=== PATIENT | female | born 1940 | race American Indian/Alaskan Native ===

== ENCOUNTER 2020-11-14 07:22 | Inpatient (IN) | payer MEDICARE ==
[2020-11-14] MEDS ORDERED: SODIUM CHLORIDE 0.9% 500 ML 500 ML IV ONE (08:00)
--- NOTE | 2020-11-14 08:04 | Emergency Department Report ---
ED General Adult HPI - General Chief complaint: Medical Clearance Stated complaint: LOSS OF APPETITE,MALAISE Time Seen by Provider: 11/14/20 07:34 Source: EMS Mode of arrival: Stretcher Limitations: No Limitations - History of Present Illness Initial comments: This is an 80-year-old female who is brought by her family for evaluation of generalized weakness. I have no report of recent fever. She was transported via EMS and found to have a blood sugar in the 70s. The patient does state that she is diabetic but is not on insulin. I am uncertain as to the validity of her medical history. She is however aware that she is in the hospital and does know her name. She says that she feels weak and essentially complains of generalized malaise. He is not reporting any focus of pain or specific symptoms. Patient was placed on a classroom monitor. She does appear to be in atrial fibrillation. Her pulse oximetry is running in the high 80s to low 90s. A blood gas on room air is now pending. -: days(s) Consistency: constant Improves with: none Worsens with: none Associated Symptoms: denies other symptoms Treatments Prior to Arrival: none - Related Data Allergies Allergy/AdvReac Type Severity Reaction Status Date / Time Penicillins Allergy Unknown Verified 11/14/20 07:33 ED Review of Systems ROS: Stated complaint: LOSS OF APPETITE,MALAISE Other details as noted in HPI Constitutional: weakness. denies: chills, fever Eyes: denies: eye pain, vision change ENT: denies: ear pain, throat pain Respiratory: denies: cough, shortness of breath Cardiovascular: denies: chest pain, palpitations Endocrine: no symptoms reported Gastrointestinal: denies: abdominal pain, nausea, diarrhea Genitourinary: denies: urgency, dysuria Musculoskeletal: denies: back pain, joint swelling, arthralgia Skin: denies: rash, lesions Neurological: denies: headache, weakness, paresthesias Psychiatric: denies: anxiety, depression Hematological/Lymphatic: denies: easy bleeding, easy bruising ED Past Medical Hx - Past Medical History Hx Hypertension: Yes Hx Diabetes: Yes (Patient states) - Social History Smoking Status: Never Smoker Other Social History: Lives with family ED Physical Exam - General Limitations: Physical Limitation General appearance: alert, in no apparent distress, cachectic (Perhaps borderline) - Head Head exam: Present: atraumatic, normocephalic - Eye Eye exam: Present: normal appearance. Absent: scleral icterus - ENT ENT exam: Present: mucous membranes moist - Neck Neck exam: Present: normal inspection - Respiratory Respiratory exam: Present: normal lung sounds bilaterally. Absent: respiratory distress - Cardiovascular Cardiovascular Exam: Present: regular rate, normal rhythm. Absent: systolic murmur, diastolic murmur, rubs, gallop - GI/Abdominal GI/Abdominal exam: Present: soft, normal bowel sounds. Absent: distended, tenderness, guarding, rebound - Extremities Exam Extremities exam: Present: normal inspection - Back Exam Back exam: Present: normal inspection - Neurological Exam Neurological exam: Present: alert, oriented X3, CN II-XII intact. Absent: motor sensory deficit - Psychiatric Psychiatric exam: Present: normal affect, normal mood - Skin Skin exam: Present: warm, dry, intact, normal color. Absent: rash ED Course Vital Signs 11/14/20 11/14/20 11/14/20 07:31 07:33 07:35 Temperature 98.4 F Pulse Rate 95 H Respiratory 15 21 Rate Blood Pressure 137/92 O2 Sat by Pulse 90 96 Oximetry - Reevaluation(s) Reevaluation #1: Spoke with patient's family. Apparently she has "thyroid problems". She has been previously treated with medication not otherwise specified. She has had some prior work-up at [facility] probably 2 years ago. She is not compliant with what ever medication she has been previously prescribed. 11/14/20 10:19 Reevaluation #2: Discussed with hospitalist (Dr. Fisher). Patient will be admitted for further care work-up. We will order a CT of her abdomen pelvis for further screening as well as thyroid and parathyroid levels. 11/14/20 10:20 ED Medical Decision Making - Lab Data Result diagrams: 11/14/20 08:18 11/14/20 08:18 Laboratory Results - last 24 hr 11/14/20 11/14/20 11/14/20 08:18 08:18 08:18 WBC 7.0 RBC 4.78 Hgb 13.8 Hct 42.9 MCV 90 MCH 29 MCHC 32 RDW 14.9 Plt Count 262 Lymph % (Auto) 21.0 [place] % (Auto) 13.7 H Eos % (Auto) 0.0 Baso % (Auto) 0.4 Lymph # (Auto) 1.5 [place] # (Auto) 1.0 H Eos # (Auto) 0.0 Baso # (Auto) 0.0 Seg Neutrophils % 64.9 Seg Neutrophils # 4.5 PT INR APTT ABG pH POC ABG pCO2 POC ABG pO2 POC ABG HCO3 ABG O2 Saturation POC ABG Base Excess ABG Hemoglobin ABG Oxyhemoglobin ABG Methemoglobin ABG Sodium ABG Potassium ABG Chloride ABG Glucose Carboxyhemoglobin FiO2 % Sodium 133 L Potassium 4.4 Chloride 98.0 Carbon Dioxide 26 Anion Gap 13 BUN 16 Creatinine 1.1 Estimated GFR 58 BUN/Creatinine Ratio 15 Glucose 100 Lactic Acid 1.60 Calcium 12.4 H* Magnesium 2.00 Total Bilirubin 0.50 Direct Bilirubin 0.2 Indirect Bilirubin 0.3 AST 42 H ALT 23 Alkaline Phosphatase 105 Ammonia Total Creatine Kinase 26 L CK-MB (CK-2) < 1.0 CK-MB (CK-2) Rel Index 3.8 Troponin T 0.051 H NT-Pro-B Natriuret Pep 55.86 Total Protein 9.4 H Albumin 3.1 L Albumin/Globulin Ratio 0.5 Triglycerides 129 Cholesterol 152 LDL Cholesterol Direct 94 HDL Cholesterol 25 L Cholesterol/HDL Ratio 6.08 TSH Free T4 Arterial Blood Glucose Arterial Blood Ionized Calcium 11/14/20 11/14/20 11/14/20 08:18 08:18 08:18 WBC RBC Hgb Hct MCV MCH MCHC RDW Plt Count Lymph % (Auto) [place] % (Auto) Eos % (Auto) Baso % (Auto) Lymph # (Auto) [place] # (Auto) Eos # (Auto) Baso # (Auto) Seg Neutrophils % Seg Neutrophils # PT 15.4 H INR 1.22 H APTT 24.8 ABG pH POC ABG pCO2 POC ABG pO2 POC ABG HCO3 ABG O2 Saturation POC ABG Base Excess ABG Hemoglobin ABG Oxyhemoglobin ABG Methemoglobin ABG Sodium ABG Potassium ABG Chloride ABG Glucose Carboxyhemoglobin FiO2 % Sodium Potassium Chloride Carbon Dioxide Anion Gap BUN Creatinine Estimated GFR BUN/Creatinine Ratio Glucose Lactic Acid Calcium Magnesium Total Bilirubin Direct Bilirubin Indirect Bilirubin AST ALT Alkaline Phosphatase Ammonia 16.0 L Total Creatine Kinase CK-MB (CK-2) CK-MB (CK-2) Rel Index Troponin T NT-Pro-B Natriuret Pep Total Protein Albumin Albumin/Globulin Ratio Triglycerides Cholesterol LDL Cholesterol Direct HDL Cholesterol Cholesterol/HDL Ratio TSH 1.150 Free T4 1.20 Arterial Blood Glucose Arterial Blood Ionized Calcium 11/14/20 08:42 WBC RBC Hgb Hct MCV MCH MCHC RDW Plt Count Lymph % (Auto) [place] % (Auto) Eos % (Auto) Baso % (Auto) Lymph # (Auto) [place] # (Auto) Eos # (Auto) Baso # (Auto) Seg Neutrophils % Seg Neutrophils # PT INR APTT ABG pH 7.440 POC ABG pCO2 41.6 POC ABG pO2 68.1 L POC ABG HCO3 27.6 ABG O2 Saturation 93.9 POC ABG Base Excess 3.2 ABG Hemoglobin 13.4 ABG Oxyhemoglobin 93.1 L ABG Methemoglobin 0 ABG Sodium 138.4 ABG Potassium 4.1 ABG Chloride 104.0 ABG Glucose 112 H Carboxyhemoglobin 0.9 FiO2 % 21.0 Sodium Potassium Chloride Carbon Dioxide Anion Gap BUN Creatinine Estimated GFR BUN/Creatinine Ratio Glucose Lactic Acid Calcium Magnesium Total Bilirubin Direct Bilirubin Indirect Bilirubin AST ALT Alkaline Phosphatase Ammonia Total Creatine Kinase CK-MB (CK-2) CK-MB (CK-2) Rel Index Troponin T NT-Pro-B Natriuret Pep Total Protein Albumin Albumin/Globulin Ratio Triglycerides Cholesterol LDL Cholesterol Direct HDL Cholesterol Cholesterol/HDL Ratio TSH Free T4 Arterial Blood Glucose 112 H Arterial Blood Ionized Calcium 6.5 H Critical care attestation.: If time is entered above; I have spent that time in minutes in the direct care of this critically ill patient, excluding procedure time. ED Disposition Clinical Impression: Hypercalcemia, Generalized weakness Disposition: OP ADMIT IP TO THIS HOSP Is pt being admited?: No Does the pt Need Aspirin: No Condition: Stable Time of Disposition: 10:21
[2020-11-14 08:46] LABS: Basophils % (Auto) 0.4 % (0.0-1.8); Hematocrit 42.9 % (30.3-42.9); Hemoglobin 13.8 gm/dl (10.1-14.3); Lymphocytes # (Auto) 1.5 K/mm3 (1.2-5.4); Mean Corpuscular HGB Conc 32 % (30-34); Mean Corpuscular Volume 90 fl (79-97); Monocytes % (Auto) 13.7 % (0.0-7.3); Platelet Count 262 K/mm3 (140-440); Red Blood Count 4.78 M/mm3 (3.65-5.03); Red Cell Distribution Width 14.9 % (13.2-15.2)
[2020-11-14 08:56] LABS: INR 1.22 (0.87-1.13); Partial Thromboplastin Time 24.8 Sec. (24.2-36.6)
--- NOTE | 2020-11-14 09:10 | XRay Report ---
CHEST 1 VIEW INDICATION: hypertension COMPARISON: None FINDINGS: Support devices: None Heart: Normal Lungs/Pleura: Mild, chronic appearing interstitial disease. Bilateral apical pleural thickening. No a cute disease. IMPRESSION: 1. No acute disease. Signer Name: Ankit Melgar MD Signed: 11/14/2020 9:06 AM Workstation Name: [id number]
[2020-11-14 09:14] LABS: Alanine Aminotransferase 23 units/L (7-56); Albumin 3.1 g/dL (3.9-5); BUN/Creatinine Ratio 15; Bilirubin,Direct 0.2 mg/dL (0-0.2); Blood Urea Nitrogen 16 mg/dL (7-17); Hemolysis Index 51
[2020-11-14 09:18] LABS: Calcium 12.4 mg/dL (8.4-10.2); Creatine Kinase MB < 1.0 ng/mL (0.0-4.0)
[2020-11-14 09:19] LABS: Free T4 (Free Thyroxine) 1.2 ng/dL (0.76-1.46)
--- NOTE | 2020-11-14 09:23 | Cat Scan Report ---
CT HEAD WITHOUT CONTRAST INDICATION / CLINICAL INFORMATION: Altered Mental Status. TECHNIQUE: All CT scans at this location are performed using CT dose reduction for ALARA by means of automated e xposure control. COMPARISON: None available. FINDINGS: HEMORRHAGE: No evidence of intracranial hemorrhage or extra-axial fluid collection. EXTRA-AXIAL SPACES: Cortical sulci and sylvian fissures are enlarged reflecting a degree of parenchym al volume loss which is prominent even given the patient's age of 80 years. Basilar cisterns have an unremarkable appearance. VENTRICULAR SYSTEM: The third and lateral ventricles are enlarged out of proportion to the cortical s ulci. This probably reflects the presence of central greater than cortical atrophy. CEREBRAL PARENCHYMA: Extensive periventricular, subcortical and deep white matter lucency is observed . This is probably secondary to advanced microvascular ischemic change. There is no indication of rec ent infarction. No areas of encephalomalacia are identified. MIDLINE SHIFT OR HERNIATION: There is no mass effect. CEREBELLUM / BRAINSTEM: Brainstem and cerebellum have an unremarkable appearance. MIDLINE STRUCTURES:No abnormalities of the pituitary gland or pineal region are observed INTRACRANIAL VESSELS: No significant abnormalities identified on noncontrast head CT examination.. ORBITS: Status post bilateral cataract surgery. No additional abnormality. SOFT TISSUES of HEAD: No significant abnormality. CALVARIUM: Evaluation of bone windows reveals no abnormalities. PARANASAL SINUSES / MASTOID AIR CELLS: Paranasal sinuses are free from inflammatory mucosal disease. Mastoid air cells are normally pneumatized. IMPRESSION: 1. Prominent Central greater than cortical atrophy. 2. Advanced microvascular ischemic change. 3. No acute intracranial abnormality. Signer Name: Mickey Levine MD Signed: 11/14/2020 9:19 AM Workstation Name: [id number]
[2020-11-14 09:40] LABS: Chol/HDL Ratio 6.08 %; HDL Cholesterol 25 mg/dL (40-59); LDL Cholesterol,Direct 94 mg/dL (50-130)
[2020-11-14] MEDS ORDERED: SODIUM CHLORIDE 0.9% 1000 ML 1,000 ML IV ONE (10:22)
[2020-11-14] MEDS ORDERED: ASPIRIN 81 MG TAB CHEW PO ONE (10:24)
--- NOTE | 2020-11-14 13:06 | Cat Scan Report ---
CT ABDOMEN AND PELVIS WITH CONTRAST HISTORY: Hypercalcemia. COMPARISON: None. TECHNIQUE: CT images of the abdomen and pelvis were obtained following administration of intravenous contrast. All CT scans at this location are performed using CT dose reduction for ALARA by means of automated exposure control. CONTRAST: 100 ml of intravenous contrast administered. FINDINGS: Lungs/bones: Chronic interstitial change in the lung bases without focal consolidation Abdomen/pelvis: There is diffuse fatty infiltration liver. There is biliary gas suggested. Prior cho lecystectomy. Spleen appears normal. Nodularity and thickened bilateral adrenal glands. Proximal panc reatic duct is slightly prominent. There is enlargement of the right renal pelvis and calyces. Large areas of calcification the right kidney are identified with area of dense calcification and stones me asuring 1.8 x 0.7 cm. There is a large calcification in the right mid ureter measuring 1 cm. Uterus is enlarged. Multiple fibroids largest calcified fibroid in the left aspect of the uterus. There is extensive vascular change with mural thrombus throughout the aorta. Areas of narrowing are i dentified. Celiac and SMA appear normal. Renal arteries are patent. There is extensive thrombus on th e left aspect of the aorta inferiorly just above the bifurcation with some narrowing of the JESIKA proxi kat at the origin. Bowel loops appear normal. IMPRESSION: 1. Severe right hydroureteronephrosis with large stone within the proximal to mid ureter. The stone m easures 1.5 x 1.0 cm. There are also large area of calcification the inferior aspect of the right silvia yces of the right kidney as described above. 2. Extensive mural thrombus throughout the aorta from the lower aspect of the thorax and into the lev el of the bifurcation. Areas of narrowing throughout the aorta is seen. 3. There is biliary gas within common bile duct and into the intrahepatic ducts. Clinical correlation for recent procedure. Prior cholecystectomy. 4. Uterine fibroids. Signer Name: Raman Sebastian MD Signed: 11/14/2020 1:02 PM Workstation Name: [id number]
--- NOTE | 2020-11-14 13:20 | History and Physical Report ---
History of Present Illness Date of examination: 11/14/20 Date of admission: 11/14/20 11:52 Chief complaint: weakness History of present illness: This is an 80-year-old female who is brought by her family for evaluation of generalized weakness. She was transported via EMS and found to have a blood sugar in the 70s. The patient does state that she is diabetic but is not on insulin. She says that she feels weak and essentially complains of generalized malaise, otherwise she is a poor historian. In the ER patient was reported to be in atrial fibrillation. Her calcium level noted to be elevated, patient was called for admission for further evaluation and management. Past medical History: h/o diet control DM, suspect dementia Past surgical History: None available Social History: Lives with family, no reported history of smoking, drinking and elicit drug abuse. Family History: Unavailable and patient is very poor historian ROS: Patient is a poor historian Constitutional: no fever, no chills, no weight loss, generalized weakness+ Ears, eyes, nose, mouth and throat: no nasal congestion, no nasal discharge, no sinus pressure, no vision change, no red eye. Neck: No neck pain or rigidity. Cardiovascular: No chest pain, no orthopnea, no palpitations, no leg swelling Respiratory: No shortness of breath, no cough, no congestion, no wheezing Gastrointestinal: no abdominal pain, no nausea, no vomiting Genitourinary : no dysuria, no hematuria Musculoskeletal: no joint swelling or muscle ache Integumentary: no rash, no pruritis Neurological: no parathesias, no numbness, no tingling Endocrine: no cold or heat intolerance, no polyuria or polydipsia Hematologic/Lymphatic: no easy bruising, no easy bleeding, no gland swelling Allergic/Immunologic: no urticaria, no angioedema. Medications and Allergies Allergies Allergy/AdvReac Type Severity Reaction Status Date / Time Penicillins Allergy Unknown Verified 11/14/20 07:33 Active Meds: Active Medications Sodium Chloride (Nacl 0.9% 1000 Ml) 1,000 mls @ 125 mls/hr IV ONCE ONE Stop: 11/14/20 18:21 Last Admin: 11/14/20 11:13 Dose: 125 mls/hr Documented by: Exam - Physical Exam Narrative exam: GENERAL: elderly AAF lying on bed appeared to be in no discomfort but lethargic. HEENT: Normocephalic. Atraumatic. No conjunctival congestion or icterus. Patient has moist mucous membranes. NECK: Supple. Trachea midline. CHEST/LUNGS: Clear to auscultated bilaterally, breathing nonlabored. No wheezes crackles or rhonchi. HEART/CARDIOVASCULAR: Regular in rate and rhythm. S1 and S2 positive. ABDOMEN: Abdomen is soft, nontender. Patient has normal bowel sounds. SKIN: There is no rash. Warm and dry. NEURO: No focal motor deficit. Follows command. MUSCULOSKELETAL: No joint effusion or tenderness. EXTRIMITY: No edema, no cyanosis or clubbing. PSYCH: Cooperative. - Constitutional Vitals: Temp Pulse Resp BP Pulse Ox 98.4 F 82 20 136/88 98 11/14/20 11:57 11/14/20 11:57 11/14/20 11:57 11/14/20 11:57 11/14/20 11:57 HEART Score - HEART Score Troponin: Troponin T 0.051 ng/mL (0.00-0.029) H 11/14/20 08:18 Results - Labs CBC & Chem 7: 11/14/20 08:18 11/16/20 07:54 Labs: Abnormal lab results 11/14/20 11/14/20 11/14/20 Range/Units 08:18 08:18 08:18 Reynolds % (Auto) 13.7 H (0.0-7.3) % Reynolds # (Auto) 1.0 H (0.0-0.8) K/mm3 PT (12.2-14.9) Sec. INR (0.87-1.13) POC ABG pO2 (83-108) mmHg ABG Oxyhemoglobin (94-98) ABG Glucose (65-95) mg/dL Sodium 133 L (137-145) mmol/L Calcium 12.4 H* (8.4-10.2) mg/dL AST 42 H (5-40) units/L Ammonia 16.0 L (25-60) umol/L Total Creatine Kinase 26 L (30-135) units/L Troponin T 0.051 H (0.00-0.029) ng/mL Total Protein 9.4 H (6.3-8.2) g/dL Albumin 3.1 L (3.9-5) g/dL HDL Cholesterol 25 L (40-59) mg/dL PTH Intact (15-65) pg/mL Arterial Blood Glucose (65-95) mg/dL Arterial Blood Ionized Calcium (4.6-5.3) mg/dL 11/14/20 11/14/20 11/14/20 Range/Units 08:18 08:18 08:42 [place] % (Auto) (0.0-7.3) % Reynolds # (Auto) (0.0-0.8) K/mm3 PT 15.4 H (12.2-14.9) Sec. INR 1.22 H (0.87-1.13) POC ABG pO2 68.1 L (83-108) mmHg ABG Oxyhemoglobin 93.1 L (94-98) ABG Glucose 112 H (65-95) mg/dL Sodium (137-145) mmol/L Calcium (8.4-10.2) mg/dL AST (5-40) units/L Ammonia (25-60) umol/L Total Creatine Kinase (30-135) units/L Troponin T (0.00-0.029) ng/mL Total Protein (6.3-8.2) g/dL Albumin (3.9-5) g/dL HDL Cholesterol (40-59) mg/dL PTH Intact 112.6 H (15-65) pg/mL Arterial Blood Glucose 112 H (65-95) mg/dL Arterial Blood Ionized Calcium 6.5 H (4.6-5.3) mg/dL - Imaging and Cardiology CT scan - abdomen: pending Assessment and Plan Atrial fibrillation, rate controlled Dehydration hypercalcemia Diabetes mellitus type 2 Hyperparathyroidism Mild hyponatremia Moderate protein calorie malnutrition --We will admit with remote telemetry -Start on IV fluid hydration, Lasix IV twice daily -We will also give 1 dose of pamidronate, consult nephrology -follow BMP, order 2D echo, cardiology consult -Continue baby aspirin for now will defer to cardiology for long-term anticoagulation -Ordered for CT abdomen pelvis, will follow the report -DVT prophylaxis, PT OT evaluation, dietary consult
[2020-11-14] MEDS ORDERED: PAMIDRONATE DISODIUM 60 MG in SODIUM CHLORIDE 0.9% 1000 ML 1,000 ML IV ONE (15:51)
[2020-11-14] MEDS: FUROSEMIDE 20 MG/2 ML INJ IV SCH ×2 (16:55→21:25)
--- NOTE | 2020-11-14 21:47 | Consultation ---
History of Present Illness - Reason for Consult Consult date: 11/14/20 other (Hypercalcemia) - History of Present Illness Th patient is an 80 YO female with unknown medical history who was brought by her family for evaluation of generalized weakness. Patient is a very poor historian and denies any complaint. She was noted to have a blood sugar in the 70s. On further evaluation she was found to have A.fib and hypercalcemia. Patient was admitted for further evaluation. Nephrology was consulted for evaluation and treatment of Hypercalcemia. Medications and Allergies Allergies Allergy/AdvReac Type Severity Reaction Status Date / Time Penicillins Allergy Unknown Verified 11/14/20 07:33 Active Meds: Active Medications Furosemide (Furosemide 20 Mg/2 Ml Inj) 20 mg IV 0600,1800 GUME Last Admin: 11/14/20 21:25 Dose: 20 mg Documented by: Pamidronate Disodium 60 mg/ (Sodium Chloride) 1,006.6667 mls @ 100 mls/hr IV ONCE ONE Stop: 11/15/20 01:54 Last Admin: 11/14/20 16:49 Dose: 100 mls/hr Documented by: Review of Systems ROS unobtainable: due to mental status Exam - Vital Signs Vital signs: Vital Signs Resp 15 11/14/20 07:31 Results - Lab Results 11/14/20 08:18 11/15/20 08:42 Most recent lab results ABG pH 7.440 (7.320-7.450) 11/14/20 08:42 ABG O2 Saturation 93.9 (0-100) 11/14/20 08:42 Calcium 12.4 mg/dL (8.4-10.2) H* 11/14/20 08:18 Magnesium 2.00 mg/dL (1.7-2.3) 11/14/20 08:18 Assessment and Plan 1. Hypercalcemia: Likely 2/2 volume depletion/ Started on IV fluids. Elevated PTH level noted. Monitor levels. 2. FEN: IV fluids. Monitor lytes and volume status. 3. Atrial fibrillation: Rate controlled. Monitor. 4. DM type 2. 5. Moderate protein calorie malnutrition. 6. Encephalopathy: ?baseline. Subjective: Patient was seen and examined at the bedside. General Appearance: General appearance: well-developed, appears stated age, emaciated, not in distress EENT: ATNC, pupils equal Neck: neck supple, trachea midline Respiratory: ctab Heart: regular, S1S2, no murmur Abdomen: soft, normoactive bowel sounds, not tender Integumentary: no rash, warm and dry Neurologic: alert, conversing, confused, able to move extremities Ext: no edema
[2020-11-15] MEDS: FUROSEMIDE 20 MG/2 ML INJ IV SCH (06:39)
[2020-11-15] MEDS: SODIUM CHLORIDE 0.9% 1000 ML 1,000 ML IV SCH (09:01)
[2020-11-15 09:43] LABS: Calcium 11.5 mg/dL (8.4-10.2)
--- NOTE | 2020-11-15 11:53 | Progress Note ---
Assessment and Plan Atrial fibrillation ??, NSR now -EKG on admission was in normal sinus rhythm, --Continue baby aspirin for now will defer to cardiology for long-term anticoagulation -We will get 2D echocardiogram and cardiology recommendation Severe symptomatic Dehydration -Continue IV fluid hydration, follow BMP hypercalcemia -Calcium was 12.4 on admission, likely from primary hyperparathyroidism --cont on IV fluid hydration, status post Lasix iv, s/p 1 dose of pamidronate -Continue IV fluid, follow calcium level Diabetes mellitus type 2 -Consistent carb diet, SSI Primary Hyperparathyroidism, likely -Noted to have elevated PTH, elevated calcium level -Ordered for parathyroid scan, nephrology following we will follow result thyroid scan Hypophosphatemia, replete and monitor level Hyponatremia, resolved, continue IV fluid hydration Moderate protein calorie malnutrition, dietary consult Severe right hydroureteronephrosis with large stone within the proximal to mid ureter --Will consult urology for right hydrouteronephrosis, cont to follow BMP for now CT abdomen/pelvis: 1. Severe right hydroureteronephrosis with large stone within the proximal to mid ureter. The stone measures 1.5 x 1.0 cm. There are also large area of calcification the inferior aspect of the right calyces of the right kidney. Extensive mural thrombus throughout the aorta -Discussed with vascular surgeon about the mural thrombus of the aorta and according to vascular it might be a chronic finding and continue aspirin for now CT abdomen/pelvis: Extensive mural thrombus throughout the aorta from the lower aspect of the thorax and into the level of the bifurcation. Areas of narrowing throughout the aorta is seen. Remote tobacco abuse -Monitor clinically: Supportive care Acute metabolic encephalopathy, POA -Continue to follow clinically, cannot rule out underlying dementia CT head: 1. Prominent Central greater than cortical atrophy. 2. Advanced microvascular ischemic change. 3. No acute intracranial abnormality. Uterine fibroids. -H&H stable,-outpatient follow-up -DVT prophylaxis, PT OT evaluation, dietary consult Daily clinical course: 11/15: Continue to monitor BMP, calcium 11.5 today, phosphorus 2.0. Replete phosphorus level, patient remains normal sinus rhythm on telemetry. Continue aspirin for now. Will consult urology when service available. Continue to follow clinically with supportive care. Follow vascular recommendation for aortic mural thrombus. Subjective Date of service: 11/15/20 Interval history: Patient seen and examined. Medical records and medication list reviewed. No acute event overnight noted by the RN. Patient denies any chest pain or difficulty breathing. Patient is tolerating diet. Patient appears to be poor historian Discussed plan of care at bedside with patient's RN. Objective - Exam Narrative Exam: GENERAL: elderly AAF lying on bed appeared to be in no discomfort but lethargic. HEENT: Normocephalic. Atraumatic. No conjunctival congestion or icterus. Patient has moist mucous membranes. NECK: Supple. Trachea midline. CHEST/LUNGS: Clear to auscultated bilaterally, breathing nonlabored. No wheezes crackles or rhonchi. HEART/CARDIOVASCULAR: Regular in rate and rhythm. S1 and S2 positive. ABDOMEN: Abdomen is soft, nontender. Patient has normal bowel sounds. SKIN: There is no rash. Warm and dry. NEURO: No focal motor deficit. Follows command. MUSCULOSKELETAL: No joint effusion or tenderness. EXTRIMITY: No edema, no cyanosis or clubbing. PSYCH: Cooperative. - Constitutional Vitals: Vital Signs - 12hr 11/15/20 11/15/20 11/15/20 00:45 04:00 05:00 Temperature 98.6 F 99.3 F Pulse Rate 76 80 Pulse Rate [ 76 Right Brachial] Respiratory 17 17 16 Rate Blood Pressure 147/88 150/93 O2 Sat by Pulse 91 91 94 Oximetry - Labs CBC & Chem 7: 11/14/20 08:18 11/16/20 07:54 Labs: Abnormal lab results 11/14/20 11/15/20 Range/Units 21:29 08:42 POC Glucose 119 H (70-105) mg/dL Calcium 11.5 H (8.4-10.2) mg/dL Phosphorus 2.00 L (2.5-4.5) mg/dL HEART Score - HEART Score Troponin: Troponin T 0.051 ng/mL (0.00-0.029) H 11/14/20 08:18
[2020-11-15] MEDS ORDERED: PHOS-NAK POWDER PACKET PO ONE (13:00)
[2020-11-15] MEDS ORDERED: ACETAMINOPHEN 325 MG TAB PO PRN (17:17)
[2020-11-15] MEDS: ASPIRIN EC 81 MG TAB PO SCH (17:17)
--- NOTE | 2020-11-15 17:18 | Progress Note ---
Assessment and Plan 1. Hypercalcemia: Likely 2/2 volume depletion. Continue IV fluids. Calcium level is improving. Elevated PTH level noted. Suspected Primary hyperparathyroidism. NM parathyroid scan ordered. Monitor levels. 2. FEN: IV fluids. Monitor lytes and volume status. 3. Severe R hydroureteronephrosis: Large stone in the proximal R ureter. R kidney calcification. Most likely chronic. 4. Atrial fibrillation: Rate controlled. Monitor. 5. DM type 2. 6. Moderate protein calorie malnutrition. 7. Encephalopathy: ?baseline. Subjective: Patient was seen and examined at the bedside. General Appearance: General appearance: well-developed, appears stated age, emaciated, not in distress EENT: ATNC, pupils equal Neck: neck supple, trachea midline Respiratory: ctab Heart: S1S2, no murmur Abdomen: soft, normoactive bowel sounds, not tender Integumentary: no rash, warm and dry Neurologic: alert, conversing, confused, able to move extremities Ext: no edema Subjective Date of service: 11/15/20 Objective - Vital Signs Vital signs: Vital Signs - 12hr 11/15/20 12:56 Temperature 101.7 F H Pulse Rate 85 Respiratory 18 Rate Blood Pressure 151/93 O2 Sat by Pulse 97 Oximetry - Lab 11/14/20 08:18 11/15/20 08:42 Most recent lab results ABG pH 7.440 (7.320-7.450) 11/14/20 08:42 ABG O2 Saturation 93.9 (0-100) 11/14/20 08:42 Calcium 11.5 mg/dL (8.4-10.2) H 11/15/20 08:42 Phosphorus 2.00 mg/dL (2.5-4.5) L 11/15/20 08:42 Magnesium 2.00 mg/dL (1.7-2.3) 11/14/20 08:18 Medications & Allergies - Medications Allergies/Adverse Reactions: Allergies Penicillins Allergy (Verified 11/14/20 07:33) Unknown Active Medications: Generic Name Dose Route Start Last Admin Trade Name Freq PRN Reason Stop Dose Admin Aspirin 81 mg 11/15/20 12:00 11/15/20 17:17 Aspirin Ec 81 Mg Tab PO 81 mg QDAY GUME Administration Enoxaparin Sodium 40 mg 11/15/20 22:00 Enoxaparin 40 Mg/0.4 Ml Inj SUB-Q QDAY@2200 GUME Protocol Sodium Chloride 1,000 mls @ 75 mls/hr 11/14/20 22:00 11/15/20 09:01 Nacl 0.9% 1000 Ml IV 75 mls/hr DIRECT GUME Administration
--- NOTE | 2020-11-15 18:34 | Consultation ---
History of Present Illness Consult date: 11/15/20 History of present illness: 80F with unknown PMHx who was brought in by family for reported weakness with finding of blood glucose 70 and hypercalcemia. Cardiology consulted for possible AF. Patient currently resting comfortably in bed and without any complaints, including CP, SOB, or palpitations. She denies any prior history of AF, and no evidence for AF is found on review of EKGs/telemetry. Of note, she developed fever earlier today. CT abd/pelvis notable for kidney stone with hydroureteronephrosis and aortic mural thrombus from lower thorax into bifurcation. Medications and Allergies Allergies Allergy/AdvReac Type Severity Reaction Status Date / Time Penicillins Allergy Unknown Verified 11/14/20 07:33 Active Meds: Active Medications Acetaminophen (Acetaminophen 325 Mg Tab) 650 mg PO Q6H PRN PRN Reason: Pain, Mild (1-3) Aspirin (Aspirin Ec 81 Mg Tab) 81 mg PO QDAY GUME Last Admin: 11/15/20 17:17 Dose: 81 mg Documented by: Enoxaparin Sodium (Enoxaparin 40 Mg/0.4 Ml Inj) 40 mg SUB-Q QDAY@2200 GUME; Protocol Sodium Chloride (Nacl 0.9% 1000 Ml) 1,000 mls @ 75 mls/hr IV DIRECT GUME Last Admin: 11/15/20 09:01 Dose: 75 mls/hr Documented by: Review of Systems All systems: negative Physical Examination Vital Signs Resp 15 11/14/20 07:31 Narrative exam: Gen_NAD, frail CV-RRR, no murmur Lungs-CTAB Abd-soft/nt/nd Ext-no pedal edema Skin-soft, warm to touch Neuro-alert and oriented, awake Psych-affect normal Results 11/14/20 08:18 11/15/20 08:42 Comprehensive Metabolic Panel 11/15/20 Range/Units 08:42 Sodium 137 (137-145) mmol/L Potassium 4.4 (3.6-5.0) mmol/L Chloride 101.0 (98-107) mmol/L Carbon Dioxide 29 (22-30) mmol/L BUN 13 (7-17) mg/dL Creatinine 1.1 (0.6-1.2) mg/dL Glucose 100 (65-100) mg/dL Calcium 11.5 H (8.4-10.2) mg/dL Tele - SR EKG - Sinus rhythm, possible inferior Q waves Assessment and Plan #No evidence for AF #Possible inferior Q waves on EKG #Fever and kidney stone with hydroureteronephrosis #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 Continue telemetry monitoring. -Will check echo. -Recommend heparin anticoagulation if no plans for procedural intervention for kidney stone. She will also need serial imaging as out-patient and vascular surgery consultation.
[2020-11-15] MEDS ORDERED: ENOXAPARIN 40 MG/0.4 ML INJ SUB-Q SCH (22:00)
[2020-11-16] MEDS: SODIUM CHLORIDE 0.9% 1000 ML 1,000 ML IV SCH (06:35)
[2020-11-16 09:09] LABS: BUN/Creatinine Ratio 12; Blood Urea Nitrogen 12 mg/dL (7-17); Calcium 9.8 mg/dL (8.4-10.2); Hemolysis Index 3
--- NOTE | 2020-11-16 09:29 | Progress Note ---
Assessment and Plan 1. Hypercalcemia: Likely 2/2 volume depletion. Continue IV fluids. Calcium level has improved. Elevated PTH level noted. NM parathyroid scan negative. Monitor levels. 2. FEN: IV fluids. Replete K and Phos. Monitor lytes and volume status. 3. Severe R hydroureteronephrosis: Large stone in the proximal R ureter. R kidney calcification. Most likely chronic. Urology consulted. 4. Atrial fibrillation: Rate controlled. Monitor. 5. Aorta mural thrombus: Vascular consulted. 6. DM type 2. 7. Moderate protein calorie malnutrition. 8. Encephalopathy: ?baseline dementia. Subjective: Patient was seen and examined at the bedside. General Appearance: General appearance: well-developed, appears stated age, emaciated, not in distress EENT: ATNC, pupils equal Neck: neck supple, trachea midline Respiratory: ctab Heart: S1S2, no murmur Abdomen: soft, normoactive bowel sounds, not tender Integumentary: no rash, warm and dry Neurologic: alert, conversing, confused, able to move extremities Ext: no edema Subjective Date of service: 11/16/20 Objective - Vital Signs Vital signs: Vital Signs - 12hr 11/15/20 11/16/20 22:54 05:17 Temperature 99.1 F 100.9 F H Pulse Rate 78 83 Respiratory 18 20 Rate Blood Pressure 112/76 134/81 O2 Sat by Pulse 96 90 Oximetry - Lab 11/14/20 08:18 11/16/20 07:54 Most recent lab results ABG pH 7.440 (7.320-7.450) 11/14/20 08:42 ABG O2 Saturation 93.9 (0-100) 11/14/20 08:42 Calcium 9.8 mg/dL (8.4-10.2) 11/16/20 07:54 Phosphorus 1.80 mg/dL (2.5-4.5) L 11/16/20 07:54 Magnesium 2.00 mg/dL (1.7-2.3) 11/14/20 08:18 Medications & Allergies - Medications Allergies/Adverse Reactions: Allergies Penicillins Allergy (Verified 11/14/20 07:33) Unknown Active Medications: Generic Name Dose Route Start Last Admin Trade Name Freq PRN Reason Stop Dose Admin Acetaminophen 650 mg 11/15/20 17:17 Acetaminophen 325 Mg Tab PO Q6H PRN Pain, Mild (1-3) Aspirin 81 mg 11/15/20 12:00 11/15/20 17:17 Aspirin Ec 81 Mg Tab PO 81 mg QDAY GUME Administration Enoxaparin Sodium 40 mg 11/15/20 22:00 11/15/20 21:58 Enoxaparin 40 Mg/0.4 Ml Inj SUB-Q 40 mg QDAY@2200 GUME Administration Protocol Sodium Chloride 1,000 mls @ 75 mls/hr 11/14/20 22:00 11/16/20 06:35 Nacl 0.9% 1000 Ml IV 75 mls/hr DIRECT GUME Administration
[2020-11-16] MEDS: ASPIRIN EC 81 MG TAB PO SCH (09:38)
[2020-11-16] MEDS ORDERED: POTASSIUM CHLORIDE ER 20 MEQ TAB PO ONE (10:00)
[2020-11-16] MEDS ORDERED: POTASSIUM PHOSPHATE 30 MMOL in SODIUM CHLORIDE 0.9% 500 ML 500 ML IV ONE (12:00)
--- NOTE | 2020-11-16 13:08 | Event Note ---
Date: 11/16/20 No new cardiac complaints, cardiology consultation was for evaluation of atrial fibrillation, but as noted in the previous cardiology note there was no evidence of atrial fibrillation on review of the telemetry strips and serial EKGs. An echocardiogram that was previously ordered was reviewed today shows normal left ventricular systolic function, no significant valvular pathology. We do however note that on the CT scan of the abdomen, there was incidental finding of extensive mural thrombus in the abdominal aorta. We have recommended that you consult with vascular surgery for evaluation of these findings. This recommendation was also previously made on our initial cardiology consultation by Dr. Leon. No further cardiac interventions are indicated. We will follow on a as needed basis.
--- NOTE | 2020-11-16 13:50 | Nuclear Medicine Report ---
Nuclear medicine parathyroid scan INDICATION: Primary hyperparathyroidism TECHNIQUE: A total of 20 mCi of technetium 99 sestamibi injected IV per protocol. Multiple planar danielle ges obtained FINDINGS: Expected cardiac and salivary gland uptake identified. Markers noted at the cricoid in the suprasternal notch. No additional uptake identified to definitely suggest abnormality IMPRESSION: No abnormal uptake identified to suggest parathyroid adenoma. Signer Name: Lon Chapa MD Signed: 11/16/2020 1:46 PM Workstation Name: [id number]
[2020-11-16] MEDS ORDERED: HEPARIN 10,000 UNITS/10 ML VIAL IV PRN (15:29)
--- NOTE | 2020-11-16 17:02 | Progress Note ---
Assessment and Plan Atrial fibrillation ??, NSR now -EKG on admission was in normal sinus rhythm, --Continue baby aspirin for now will defer to cardiology for long-term anticoagulation -We will get 2D echocardiogram and cardiology recommendation Severe symptomatic Dehydration -Continue IV fluid hydration, follow BMP hypercalcemia -Calcium was 12.4 on admission, likely from primary hyperparathyroidism --cont on IV fluid hydration, status post Lasix iv, s/p 1 dose of pamidronate -Continue IV fluid, follow calcium level Diabetes mellitus type 2 -Consistent carb diet, SSI Primary Hyperparathyroidism, likely -Noted to have elevated PTH, elevated calcium level -Ordered for parathyroid scan, nephrology following we will follow result thyroid scan Hypophosphatemia, replete and monitor level Hypokalemia, replete and monitor level Hyponatremia, resolved, continue IV fluid hydration Moderate protein calorie malnutrition, dietary consult Severe right hydroureteronephrosis with large stone within the proximal to mid ureter --Will consult urology for right hydrouteronephrosis, cont to follow BMP for now CT abdomen/pelvis: 1. Severe right hydroureteronephrosis with large stone within the proximal to mid ureter. The stone measures 1.5 x 1.0 cm. There are also large area of calcification the inferior aspect of the right calyces of the right kidney. Extensive mural thrombus throughout the aorta -Discussed with vascular surgeon about the mural thrombus of the aorta and according to vascular it might be a chronic finding and continue aspirin for now CT abdomen/pelvis: Extensive mural thrombus throughout the aorta from the lower aspect of the thorax and into the level of the bifurcation. Areas of narrowing t hroughout the aorta is seen. Remote tobacco abuse -Monitor clinically: Supportive care Acute metabolic encephalopathy, POA -Continue to follow clinically, cannot rule out underlying dementia CT head: 1. Prominent Central greater than cortical atrophy. 2. Advanced microvascular ischemic change. 3. No acute intracranial abnormality. Uterine fibroids. -H&H stable,-outpatient follow-up -DVT prophylaxis, PT OT evaluation, dietary consult Daily clinical course: 11/15: Continue to monitor BMP, calcium 11.5 today, phosphorus 2.0. Replete phosphorus level, patient remains normal sinus rhythm on telemetry. Continue aspirin for now. Will consult urology when service available. Continue to follow clinically with supportive care. Follow vascular recommendation for aortic mural thrombus. 11/16: Ca level normal today, noted parathyroid scan results. Discussed with urologist and recommended to keep patient n.p.o. for possible cystoscopy/pyelogram with stent placement tomorrow. Continue to replete p hosphate and potassium. Discussed management and plan of care with patient and patient's son at the bedside. Subjective Date of service: 11/16/20 Interval history: Patient seen and examined. Medical records and medication list reviewed. No acute event overnight noted by the RN. Patient denies any chest pain or difficulty breathing. Patient is tolerating diet. Patient appears to be poor historian Discussed plan of care at bedside with patient's Son at the bedside. Objective - Exam Narrative Exam: GENERAL: elderly AAF lying on bed appeared to be in no discomfort but lethargic. HEENT: Normocephalic. Atraumatic. No conjunctival congestion or icterus. Patient has moist mucous membranes. NECK: Supple. Trachea midline. CHEST/LUNGS: Clear to auscultated bilaterally, breathing nonlabored. No wheezes crackles or rhonchi. HEART/CARDIOVASCULAR: Regular in rate and rhythm. S1 and S2 positive. ABDOMEN: Abdomen is soft, nontender. Patient has normal bowel sounds. SKIN: There is no rash. Warm and dry. NEURO: No focal motor deficit. Follows command. MUSCULOSKELETAL: No joint effusion or tenderness. EXTRIMITY: No edema, no cyanosis or clubbing. PSYCH: Cooperative. - Constitutional Vitals: Vital Signs - 12hr 11/16/20 11/16/20 05:17 11:00 Temperature 100.9 F H 99.1 F Pulse Rate 83 72 Respiratory 20 24 Rate Blood Pressure 134/81 Blood Pressure 136/86 [Left] O2 Sat by Pulse 90 97 Oximetry - Labs CBC & Chem 7: 11/14/20 08:18 11/16/20 07:54 Labs: Abnormal lab results 11/15/20 11/15/20 11/16/20 Range/Units 16:31 21:56 07:54 Potassium 3.5 L D (3.6-5.0) mmol/L POC Glucose 118 H 108 H (70-105) mg/dL Phosphorus 1.80 L (2.5-4.5) mg/dL HEART Score - HEART Score Troponin: Troponin T 0.051 ng/mL (0.00-0.029) H 11/14/20 08:18
[2020-11-16 19:18] LABS: Hematocrit 39.2 % (30.3-42.9); Hemoglobin 12.9 gm/dl (10.1-14.3)
[2020-11-16 19:39] LABS: INR 1.24 (0.87-1.13)
[2020-11-16 19:40] LABS: Partial Thromboplastin Time 29.5 Sec. (24.2-36.6)
--- NOTE | 2020-11-17 08:06 | Progress Note ---
Assessment and Plan 1. Hypercalcemia: Likely 2/2 volume depletion. Continue IV fluids. Calcium level has improved. Elevated PTH level noted. NM parathyroid scan negative. Monitor levels. 2. FEN: IV fluids. Replete Phos. Monitor lytes and volume status. 3. Severe R hydroureteronephrosis: Large stone in the proximal R ureter. R kidney calcification. Most likely chronic. Urology consulted. 4. Atrial fibrillation: Rate controlled. Monitor. 5. Aorta mural thrombus: Vascular consulted. 6. DM type 2. 7. Moderate protein calorie malnutrition. 8. Encephalopathy: ?baseline dementia. Subjective: Patient was seen and examined at the bedside. General Appearance: General appearance: well-developed, appears stated age, emaciated, not in distress EENT: ATNC, pupils equal Neck: neck supple, trachea midline Respiratory: ctab Heart: S1S2, no murmur Abdomen: soft, normoactive bowel sounds, not tender Integumentary: no rash, warm and dry Neurologic: alert, conversing, confused, able to move extremities Ext: no edema Subjective Date of service: 11/17/20 Objective - Vital Signs Vital signs: Vital Signs - 12hr 11/16/20 11/17/20 21:50 04:43 Temperature 99.4 F 99.4 F Pulse Rate 76 77 Respiratory 16 18 Rate Blood Pressure 137/82 149/85 O2 Sat by Pulse 90 89 Oximetry - Lab 11/18/20 10:09 11/18/20 10:09 Most recent lab results ABG pH 7.440 (7.320-7.450) 11/14/20 08:42 ABG O2 Saturation 93.9 (0-100) 11/14/20 08:42 Calcium 9.8 mg/dL (8.4-10.2) 11/16/20 07:54 Phosphorus 1.80 mg/dL (2.5-4.5) L 11/16/20 07:54 Magnesium 2.00 mg/dL (1.7-2.3) 11/14/20 08:18 Medications & Allergies - Medications Allergies/Adverse Reactions: Allergies Penicillins Allergy (Verified 11/14/20 07:33) Unknown Home Medications: Home Medications Medication Instructions Recorded Confirmed Last Taken Type Aspirin EC [Halfprin EC] 81 mg PO QDAY #30 tablet 11/18/20 Unknown Rx Phosphorus #1 [K-Phos Neutral] 250 mg PO QID #7 tablet 11/18/20 Unknown Rx levoFLOXacin [Levaquin] 750 mg PO QDAY #7 tablet 11/18/20 Unknown Rx Active Medications: Generic Name Dose Route Start Last Admin Trade Name Freq PRN Reason Stop Dose Admin Acetaminophen 650 mg 11/15/20 17:17 Acetaminophen 325 Mg Tab PO Q6H PRN Pain, Mild (1-3) Aspirin 81 mg 11/15/20 12:00 11/16/20 09:38 Aspirin Ec 81 Mg Tab PO 81 mg QDAY GUME Administration Sodium Chloride 1,000 mls @ 75 mls/hr 11/14/20 22:00 11/16/20 06:35 Nacl 0.9% 1000 Ml IV 75 mls/hr DIRECT GUME Administration
[2020-11-17 08:40] LABS: Hematocrit 40.9 % (30.3-42.9); Hemoglobin 13.4 gm/dl (10.1-14.3); Mean Corpuscular HGB Conc 33 % (30-34); Mean Corpuscular Volume 91 fl (79-97); Platelet Count 229 K/mm3 (140-440); Red Blood Count 4.51 M/mm3 (3.65-5.03); Red Cell Distribution Width 15.3 % (13.2-15.2)
[2020-11-17 08:59] LABS: BUN/Creatinine Ratio 13; Blood Urea Nitrogen 10 mg/dL (7-17); Hemolysis Index 71
[2020-11-17 09:14] LABS: Mucus,Urine FEW /HPF; WBC,Urine > 182.0 /HPF (0.0-6.0)
[2020-11-17 09:16] LABS: Bilirubin,Urine NEG (Negative); Blood,Urine SM (Negative); Color,Urine Yellow (Yellow)
[2020-11-17] MEDS: ASPIRIN EC 81 MG TAB PO SCH (09:17)
[2020-11-17 09:53] LABS: Total Cells Counted 100
[2020-11-17 09:54] LABS: Ovalocytes Rare; Platelet Estimate Consistent w Auto
--- NOTE | 2020-11-17 10:07 | Progress Note ---
Subjective Date of service: 11/17/20 Principal diagnosis: r ureteral stone Interval history: rec stent or perc spoke meek and her son large stone all option s ' Objective - Constitutional Vitals: Vital Signs - 12hr 11/17/20 04:43 Temperature 99.4 F Pulse Rate 77 Respiratory 18 Rate Blood Pressure 149/85 O2 Sat by Pulse 89 Oximetry - Labs CBC & Chem 7: 11/17/20 08:17 11/17/20 08:17 Labs: Abnormal lab results 11/16/20 11/17/20 11/17/20 Range/Units 18:34 08:17 08:17 RDW 15.3 H (13.2-15.2) % Monocytes % (Manual) 9.0 H (0.0-7.3) % PT 15.6 H (12.2-14.9) Sec. INR 1.24 H (0.87-1.13) Chloride 107.7 H (98-107) mmol/L Carbon Dioxide 20 L D (22-30) mmol/L Urine pH (5.0-7.0) Urine WBC (Auto) (0.0-6.0) /HPF 11/17/20 Range/Units Unknown RDW (13.2-15.2) % Monocytes % (Manual) (0.0-7.3) % PT (12.2-14.9) Sec. INR (0.87-1.13) Chloride (98-107) mmol/L Carbon Dioxide (22-30) mmol/L Urine pH 8.0 H (5.0-7.0) Urine WBC (Auto) > 182.0 H (0.0-6.0) /HPF Medications & Allergies - Medications Allergies/Adverse Reactions: Allergies Penicillins Allergy (Verified 11/14/20 07:33) Unknown Active Medications: Generic Name Dose Route Start Last Admin Trade Name Freq PRN Reason Stop Dose Admin Acetaminophen 650 mg 11/15/20 17:17 Acetaminophen 325 Mg Tab PO Q6H PRN Pain, Mild (1-3) Aspirin 81 mg 11/15/20 12:00 11/17/20 09:17 Aspirin Ec 81 Mg Tab PO Not Given QDAY GUME Sodium Chloride 1,000 mls @ 75 mls/hr 11/14/20 22:00 11/16/20 06:35 Nacl 0.9% 1000 Ml IV 75 mls/hr DIRECT GUME Administration HEART Score - HEART Score Troponin: Troponin T 0.051 ng/mL (0.00-0.029) H 11/14/20 08:18
[2020-11-17] MEDS ORDERED: propofoL 200 MG/20 ML VIAL IV ONE (10:46)
[2020-11-17] MEDS ORDERED: fentaNYL 100 MCG/2 ML INJ ONE (10:46)
[2020-11-17] MEDS ORDERED: ONDANSETRON 4 MG/2 ML INJ IV PRN (10:57)
[2020-11-17] MEDS ORDERED: HYDROmorphone 1 MG/1 ML INJ IV PRN ×2 (10:57)
[2020-11-17] MEDS ORDERED: DEXTROSE 50% IN WATER (25GM) 50 ML SYRINGE IV ONE (11:09)
--- NOTE | 2020-11-17 11:11 | Anesthesia Day of Surgery ---
Anesthesia Day of Surgery - Day of Surgery Patient Examined: Yes Patient H&P Reviewed: Yes Patient is NPO: Yes
[2020-11-17] MEDS: SODIUM CHLORIDE 0.9% 1000 ML 1,000 ML IV SCH (11:15)
--- NOTE | 2020-11-17 11:15 | Anesthesia Consultation ---
Anesthesia Consult and Med Hx Date of service: 11/17/20 - Airway Anesthetic Teeth Evaluation: Edentulous ROM Head & Neck: Adequate Mental/Hyoid Distance: Adequate Mallampati Class: Class II Intubation Access Assessment: Good - Pre-Operative Health Status ASA Pre-Surgery Classification: ASA3, Emergency Proposed Anesthetic Plan: General - Cardiovascular System Hx Hypertension: Yes Hx Cardia Arrhythmia: No (No A-Fib detected) Hx Peripheral Vascular Disease: Yes (Extensive mural thrombus throughout the aorta) - Central Nervous System Hx Neuromuscular Disorder: Yes (? Dementia) - Endocrine Hx Renal Disease: Yes (Severe right hydroureteronephrosis with large stone within the proximal to ) Hx Non-Insulin Dependent Diabetes: Yes Hx Hyperthyroidism: No (Hyperparathyroidism-hypercalcemia) - Other Systems Hx Alcohol Use: No Hx Cancer: No - Additional Comments Anesthesia Medical History Comments: Cardiology note: no evidence of atrial fibrillation on review of the telemetry strips and serial EKGs. An echocardiogram that was previously ordered was reviewed today shows normal left ventricular systolic function, no significant valvular pathology. We do however note that on the CT scan of the abdomen, there was incidental finding of extensive mural thrombus in the abdominal aorta. We have recommended that you consult with vascular surgery for evaluation of these findings. This recommendation was also previously made on our initial cardiology consultation by Dr. Leon.
--- NOTE | 2020-11-17 11:38 | Consultation ---
History of Present Illness - Reason for Consult Consult date: 11/17/20 Hydronephrosis and mural thrombus Requesting physician: BENJI HOWE - History of Present Illness 80-year-old female who is brought by her family for evaluation of generalized weakness. She was transported via EMS and found to have a blood sugar in the 70s. The patient does state that she is diabetic but is not on insulin. She says that she feels weak and essentially complains of generalized malaise, otherwise she is a poor historian. In the ER patient was reported to be in atrial fibrillation. Her calcium level noted to be elevated, patient was called for admission for further evaluation and management. Vascular consulted for mural thrombus noted incidentally on CT scan of the ab domen and pelvis. In addition, incidental note of right-sided hydronephrosis noted with obstructing renal calculi. Past medical History: diet control DM suspect dementia Past surgical History: None available Social History: Lives with family, no reported history of smoking, drinking and elicit drug abuse. Family History: Unavailable and patient is very poor historian ROS: Patient is a poor historian Constitutional: no fever, no chills, no weight loss, generalized weakness+ Ears, eyes, nose, mouth and throat: no nasal congestion, no nasal discharge, no sinus pressure, no vision change, no red eye. Neck: No neck pain or rigidity. Cardiovascular: No chest pain, no orthopnea, no palpitations, no leg swelling Respiratory: No shortness of breath, no cough, no congestion, no wheezing Gastrointestinal: no abdominal pain, no nausea, no vomiting Genitourinary : no dysuria, no hematuria Musculoskeletal: no joint swelling or muscle ache Integumentary: no rash, no pruritis Neurological: no parathesias, no numbness, no tingling Endocrine: no cold or heat intolerance, no polyuria or polydipsia Hematologic/Lymphatic: no easy bruising, no easy bleeding, no gland swelling Allergic/Immunologic: no urticaria, no angioedema. Medications and Allergies Allergies Allergy/AdvReac Type Severity Reaction Status Date / Time Penicillins Allergy Unknown Verified 11/14/20 07:33 Active Meds: Active Medications Acetaminophen (Acetaminophen 325 Mg Tab) 650 mg PO Q6H PRN PRN Reason: Pain, Mild (1-3) Aspirin (Aspirin Ec 81 Mg Tab) 81 mg PO QDAY GUME Last Admin: 11/17/20 09:17 Dose: Not Given Documented by: Hydromorphone HCl (Hydromorphone 1 Mg/1 Ml Inj) 0.25 mg IV Q10MIN PRN PRN Reason: Pain, Moderate (4-6) Stop: 11/17/20 20:00 Hydromorphone HCl (Hydromorphone 1 Mg/1 Ml Inj) 0.5 mg IV Q10MIN PRN PRN Reason: Pain , Severe (7-10) Stop: 11/17/20 20:00 Sodium Chloride (Nacl 0.9% 1000 Ml) 1,000 mls @ 75 mls/hr IV DIRECT GUME Last Admin: 11/16/20 06:35 Dose: 75 mls/hr Documented by: Levofloxacin/Dextrose (Levaquin 750mg/150ml) 750 mg in 150 mls @ 100 mls/hr IV Q24HR GUME; Protocol Ondansetron HCl (Ondansetron 4 Mg/2 Ml Inj) 4 mg IV ONCE PRN PRN Reason: Nausea And Vomiting Stop: 11/17/20 20:00 Exam - Constitutional Vitals: Temp Pulse Resp BP Pulse Ox 99.4 F 77 18 149/85 89 11/17/20 04:43 11/17/20 04:43 11/17/20 04:43 11/17/20 04:43 11/17/20 04:43 General appearance: Present: no acute distress - EENT Eyes: Present: EOM intact ENT: hearing intact - Respiratory Respiratory effort: normal - Extremities Extremities: normal temperature, normal color - Abdominal General gastrointestinal: Present: soft, tender (Right flank) - Psychiatric Psychiatric: appropriate mood/affect, cooperative Results - Labs CBC & Chem 7: 11/17/20 08:17 11/17/20 08:17 Labs: Abnormal lab results 11/16/20 11/17/20 11/17/20 Range/Units 18:34 08:17 08:17 RDW 15.3 H (13.2-15.2) % Monocytes % (Manual) 9.0 H (0.0-7.3) % PT 15.6 H (12.2-14.9) Sec. INR 1.24 H (0.87-1.13) Chloride 107.7 H (98-107) mmol/L Carbon Dioxide 20 L D (22-30) mmol/L POC Glucose (70-105) mg/dL Phosphorus 1.90 L (2.5-4.5) mg/dL Urine pH (5.0-7.0) Urine WBC (Auto) (0.0-6.0) /HPF 11/17/20 11/17/20 Range/Units 11:06 Unknown RDW (13.2-15.2) % Monocytes % (Manual) (0.0-7.3) % PT (12.2-14.9) Sec. INR (0.87-1.13) Chloride (98-107) mmol/L Carbon Dioxide (22-30) mmol/L POC Glucose 67 L (70-105) mg/dL Phosphorus (2.5-4.5) mg/dL Urine pH 8.0 H (5.0-7.0) Urine WBC (Auto) > 182.0 H (0.0-6.0) /HPF Assessment and Plan 80-year-old female with multiple medical issues including mural thrombus on CT scan and right hydronephrosis. 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 Recommend antiplatelet therapy consisting of aspirin. Recommend statin therapy. No need for anticoagulation for chronic mural thrombus. Right hydronephrosis with large obstructing ureteral calculi. Urology attempted to perform cystoscopic stent placement which was unsuccessful. Plan for nephrostomy tube placement today. Can be discharged after nephrostomy tube placement tomorrow. Will need to follow-up with urology as outpatient for further management and probable ultimate PCNL.
[2020-11-17] MEDS ORDERED: LIDOCAINE 2% UROJECT 10 ML JELLY UR ONE (12:20)
[2020-11-17] MEDS ORDERED: WATER FOR IRRIG STERILE 2000 ML IR ONE (12:22)
--- NOTE | 2020-11-17 12:37 | Post Operative Note ---
Date of procedure: 11/17/20 Pre-op diagnosis: hydro Post-op diagnosis: same Findings: severe obst Procedure: large r ureteral stone cysto rpg attempted j stent Anesthesia: GETA Surgeon: JACQUELINE MORRELL Estimated blood loss: none Pathology: none Condition: stable Disposition: PACU
[2020-11-17] MEDS ORDERED: LIDOCAINE 1%/EPINEPHRINE 1:100,000 VIAL (20 ML) INFILTRATI ONE ×3 (13:30→14:47)
--- NOTE | 2020-11-17 14:13 | Fluoroscopy Report ---
FLUOROSCOPY RETROGRADE UROGRAPHY HISTORY: Right ureteral and kidney stones FINDINGS: Fluoroscopy was provided by radiology during retrograde urography by the urologist. 5 fluor oscopic images are presented. There is a small amount of contrast agent in the distal right ureter. T here appears to be an obstructing stone in the mid to distal right ureter near the level of L4-5. Per the operative notes, the urologist attempted to transverse this area with a wire but this was not browning ccessful. The proximal right renal collecting system is incompletely opacified but appears dilated. N o images of the left collecting system were obtained. Please correlate with the procedural report as needed. Fluoroscopy time: 3.8 Fluoroscopic images: 5 Signer Name: Chandler Kimble Jr, MD Signed: 11/17/2020 2:09 PM Workstation Name: [id number]
--- NOTE | 2020-11-17 14:16 | Consultation ---
DATE OF CONSULTATION: 11/17/2020 HISTORY OF PRESENT ILLNESS: The patient is an 80-year-old woman who presented with abdominal and flank pain. She was found to have moderate atherosclerosis with a large stone in the mid right ureter with moderate hydronephrosis. She has intermittent pain. She has other stones in the kidney as well. She may need a percutaneous nephrostomy. Right now, she was hurting, we may place a stent. All options were discussed with her. All risks and implications. Her son was on the phone. PAST MEDICAL HISTORY: Denied any history of manipulation. PHYSICAL EXAMINATION: GENERAL: On exam, she is awake, she is in no distress, but in mild discomfort. ABDOMEN: Soft, nondistended. IMPRESSION AND PLAN: Severe right hydronephrosis, right mid ureteral stones in the right kidney. If the stent can go, we can place it. Otherwise, we will place a percutaneous nephrostomy. I will discuss this with interventional radiology as well. TID: [id number] RECEIPT: [id number] SHAUN/EJ
--- NOTE | 2020-11-17 14:18 | Operative Report ---
DATE OF SURGERY: 11/17/2020 PREOPERATIVE DIAGNOSIS: Severe right mid ureteral stone. POSTOPERATIVE DIAGNOSIS: Kinking of the upper ureter with a large stone in the mid ureter and smaller stones in the kidney. PROCEDURE PERFORMED: Cystoscopy, right retrograde attempted J stent. SURGEON: Dr. العراقي. ANESTHESIA: General. FINDINGS: This is a woman who has intermittent severe pain and fevers. She has a severe right hydronephrosis and a large right ureteral stone. Kidney is moderately hydronephrotic. I spoke to Dr. Frye beforehand and the plan would be since she is 80 to try to get a stent by or push the stone proximally. If not, she will need a percutaneous nephrostomy. DESCRIPTION OF PROCEDURE: Patient was brought to the OR and placed on the operating table. Following induction of anesthesia, placed in lithotomy position, prepped and draped in usual sterile fashion. A right retrograde showed the stone with minimal dye going past it. We diluted the dye with some lidocaine and we were able to get a 0.025 wire above it and then the stent over the 0.025 wire. It was very tight. Once we got past there we tried to exchange it with a larger wire because even the smaller wire kept looping around the UPJ. We took a bigger wire, but did not go easily and then we injected some dye. There was a small amount of extravasation. We decided to then stop. I notified Dr. Frye and she will get a percutaneous nephrostomy. I spoke to the son before the case and then afterwards that she will need a percutaneous nephrostomy, which we considered even before this case. She was brought to recovery room in stable condition. TID: [id number] RECEIPT: [id number] Martinez/RENATA
--- NOTE | 2020-11-17 14:30 | Progress Note ---
Assessment and Plan Atrial fibrillation ??, NSR now -EKG on admission was in normal sinus rhythm, --Continue baby aspirin for now will defer to cardiology for long-term anticoagulation -We will get 2D echocardiogram and cardiology recommendation Severe symptomatic Dehydration -Continue IV fluid hydration, follow BMP hypercalcemia -Calcium was 12.4 on admission, likely from primary hyperparathyroidism --cont on IV fluid hydration, status post Lasix iv, s/p 1 dose of pamidronate -Continue IV fluid, follow calcium level Diabetes mellitus type 2 -Consistent carb diet, SSI Primary Hyperparathyroidism, likely -Noted to have elevated PTH, elevated calcium level -Ordered for parathyroid scan, nephrology following we will follow result thyroid scan Hypophosphatemia, replete and monitor level Hypokalemia, replete and monitor level Hyponatremia, resolved, continue IV fluid hydration Moderate protein calorie malnutrition, dietary consult Severe right hydroureteronephrosis with large stone within the proximal to mid ureter --consulted urology/IR for right hydrouteronephrosis, cont to follow BMP for now CT abdomen/pelvis: 1. Severe right hydroureteronephrosis with large stone within the proximal to mid ureter. The stone measures 1.5 x 1.0 cm. There are also large area of calcification the inferior aspect of the right calyces of the right kidney. Patient will need possible stenting versus right PCN placement Extensive mural thrombus throughout the aorta -Discussed with vascular surgeon about the mural thrombus of the aorta and according to vascular it might be a chronic finding and continue aspirin for now CT abdomen/pelvis: Extensive mural thrombus throughout the aorta from the lower aspect of the thorax and into the level of the bifurcation. Areas of narrowing throughout the aorta is seen. Remote tobacco abuse -Monitor clinically: Supportive care Acute metabolic encephalopathy, POA -Continue to follow clinically, cannot rule out underlying dementia CT head: 1. Prominent Central greater than cortical atrophy. 2. Advanced microvascular ischemic change. 3. No acute intracranial abnormality. Uterine fibroids. -H&H stable,-outpatient follow-up -DVT prophylaxis, PT OT evaluation, dietary consult Daily clinical course: 11/15: Continue to monitor BMP, calcium 11.5 today, phosphorus 2.0. Replete vasu sphorus level, patient remains normal sinus rhythm on telemetry. Continue aspirin for now. Will consult urology when service available. Continue to follow clinically with supportive care. Follow vascular recommendation for aortic mural thrombus. 11/16: Ca level normal today, noted parathyroid scan results. Discussed with urologist and recommended to keep patient n.p.o. for possible cystoscopy /pyelogram with stent placement tomorrow. Continue to replete phosphate and potassium. Discussed management and plan of care with patient and patient's son at the bedside. 11/17: Patient is planned for cystogram with right pyelogram for possible stent placement if possible by urology otherwise plan for right PCN by IR. Calcium level remains normal, continue supportive care and follow clinically. Subjective Date of service: 11/17/20 Principal diagnosis: r ureteral stone Interval history: Patient seen and examined. Medical records and medication list reviewed. No acute event overnight noted by the RN. Patient denies any chest pain or difficulty breathing. Patient is planned for cystoscopy right pyelogram today Objective - Exam Narrative Exam: GENERAL: elderly AAF lying on bed appeared to be in no discomfort but letharg ic. HEENT: Normocephalic. Atraumatic. No conjunctival congestion or icterus. Patient has moist mucous membranes. NECK: Supple. Trachea midline. CHEST/LUNGS: Clear to auscultated bilaterally, breathing nonlabored. No wheezes crackles or rhonchi. HEART/CARDIOVASCULAR: Regular in rate and rhythm. S1 and S2 positive. ABDOMEN: Abdomen is soft, nontender. Patient has normal bowel sounds. SKIN: There is no rash. Warm and dry. NEURO: No focal motor deficit. Follows command. MUSCULOSKELETAL: No joint effusion or tenderness. EXTRIMITY: No edema, no cyanosis or clubbing. PSYCH: Cooperative. - Constitutional Vitals: Vital Signs - 12hr 11/17/20 11/17/20 11/17/20 04:43 10:55 11:20 Temperature 99.4 F 100.9 F H 100.9 F H Pulse Rate 77 74 74 Respiratory 18 16 16 Rate Blood Pressure 149/85 151/93 151/93 O2 Sat by Pulse 89 96 96 Oximetry 11/17/20 11/17/20 11/17/20 12:43 12:48 12:53 Temperature 97.2 F L Pulse Rate 111 H 102 H 104 H Respiratory 16 19 24 Rate Blood Pressure 127/82 126/80 125/77 O2 Sat by Pulse 98 95 96 Oximetry 11/17/20 11/17/20 12:58 13:13 Temperature 98.1 F Pulse Rate 100 H 92 H Respiratory 22 25 H Rate Blood Pressure 131/80 136/82 O2 Sat by Pulse 96 96 Oximetry - Labs CBC & Chem 7: 11/17/20 08:17 11/17/20 08:17 Labs: Abnormal lab results 11/16/20 11/17/20 11/17/20 Range/Units 18:34 08:17 08:17 RDW 15.3 H (13.2-15.2) % Monocytes % (Manual) 9.0 H (0.0-7.3) % PT 15.6 H (12.2-14.9) Sec. INR 1.24 H (0.87-1.13) Chloride 107.7 H (98-107) mmol/L Carbon Dioxide 20 L D (22-30) mmol/L POC Glucose (70-105) mg/dL Phosphorus 1.90 L (2.5-4.5) mg/dL Urine pH (5.0-7.0) Urine WBC (Auto) (0.0-6.0) /HPF 11/17/20 11/17/20 11/17/20 Range/Units 11:06 12:55 Unknown RDW (13.2-15.2) % Monocytes % (Manual) (0.0-7.3) % PT (12.2-14.9) Sec. INR (0.87-1.13) Chloride (98-107) mmol/L Carbon Dioxide (22-30) mmol/L POC Glucose 67 L 112 H (70-105) mg/dL Phosphorus (2.5-4.5) mg/dL Urine pH 8.0 H (5.0-7.0) Urine WBC (Auto) > 182.0 H (0.0-6.0) /[facility] HEART Score - HEART Score Troponin: Troponin T 0.051 ng/mL (0.00-0.029) H 11/14/20 08:18
[2020-11-17] MEDS ORDERED: MIDAZOLAM 2 MG/2 ML INJ IV ONE (14:38)
--- NOTE | 2020-11-17 15:14 | Post Anesthesia Evaluation ---
- Post Anesthesia Evaluation Patient Participated: Yes Airway Patent: Yes Stable Respiratory Function: Yes Nausea/Vomiting: No Temp > 96.8F: Yes Pain Manageable: Yes Adequeate Hydration: Yes Anesthesia Complications: No Block Receding Appropriately: Not Applicable Patient on Ventilator: No
--- NOTE | 2020-11-17 16:09 | Operative Report ---
Operative Report Operative Report: EXAM: 1. Ultrasound and fluoroscopic guided access of the lower posterior calyx of the right kidney 2. Diagnostic injection of the right kidney through the access needle 3. Nephrostogram of the right kidney 4. Percutaneous nephrostomy tube placement of the right kidney DATE: 11/17/2020 VASCULAR SURGEON: BERTHA MOBLEY MD INDICATION: Right hydronephrosis and obstructing ureteral calculi MEDICATIONS: Please see nursing report for full details. DEVICES: 8 Greek nephrostomy tube CONTRAST: Please see laborer wrecking and salvaging report for full details PROCEDURE: The risks, benefits, and alternatives were discussed with the patient; written informed consent was obtained. The patient's back was prepped and draped in a sterile fashion. The patient's puncture site was anesthetized with lidocaine. Under direct ultrasound guidance, the right lower pole posterior calyx was accessed with a 21-gauge needle. Urine was aspirated. Contrast was injected demonstrating right hydronephrosis and proximal hydroureter with a large proximal to mid obstructing ureteral calculi.. 0.018 inch wire was passed into the collecting system. Needle was exchanged for a 6 Greek Accu stick system. 6 Greek Accustick system was advanced over the wire and passed into the collecting system. Wire, inner dilator and cannula were removed. Contrast was injected confirming position within the collecting system. Nephrostogram was performed demonstrating right hydronephrosis and proximal hydroureter with a large proximal to mid obstructing ureteral calculi. Angled catheter and wire were then passed into the bladder and contrast and saline was infused to dilate the bladder. 0.035 inch Amplatz wire was advanced through the angled catheter through the transitional dilator of the AccuStick system and the dilator was removed. 8 Greek nephrostomy tube was advanced over the wire. Wire was removed. [place] loop was performed in the renal pelvis. Contrast was injected into the nephrostomy tube confirming position within the collecting system. Contrast was aspirated. The nephrostomy tube was sutured in place with 2, 2-0 Ethilon. Sterile dressing applied. Patient tolerated the procedure well. She was transferred to the floor in stable condition. FINDINGS: Please see procedure note above. IMPRESSION: 1. Successful nephrostogram of the right kidney demonstrating right hydronephrosis and proximal hydroureter with a large proximal to mid obstructing ureteral calculi. 2. Percutaneous nephrostomy tube placement in the lower posterior calyx of the right kidney.
[2020-11-17] MEDS: PHOS-NAK POWDER PACKET PO SCH ×2 (18:43→22:22)
[2020-11-17] MEDS: K-PHOS NEUTRAL 250 MG TAB PO SCH ×2 (18:43→22:22)
[2020-11-18] MEDS: K-PHOS NEUTRAL 250 MG TAB PO SCH ×2 (09:09→14:45)
[2020-11-18] MEDS: ASPIRIN EC 81 MG TAB PO SCH (09:09)
[2020-11-18] MEDS: SODIUM CHLORIDE 0.9% 1000 ML 1,000 ML IV SCH (09:10)
--- NOTE | 2020-11-18 10:32 | Progress Note ---
Assessment and Plan 1. Hypercalcemia: Likely 2/2 volume depletion. Continue IV fluids. Calcium level has improved. NM parathyroid scan negative. Monitor levels. 2. FEN: IV fluids. Replete Phos. Monitor lytes and volume status. 3. Severe R hydroureteronephrosis: Large stone in the proximal R ureter. R kidney calcification. S/p R nephrostomy tube. Seen by Urology. 4. Atrial fibrillation: Rate controlled. Monitor. 5. Aorta mural thrombus: Vascular consulted. 6. DM type 2. 7. Moderate protein calorie malnutrition. 8. Encephalopathy: ?baseline dementia. Subjective: Patient was seen and examined at the bedside. General Appearance: General appearance: well-developed, appears stated age, emaciated, not in distress EENT: ATNC, pupils equal Neck: neck supple, trachea midline Respiratory: ctab Heart: S1S2, no murmur Abdomen: soft, normoactive bowel sounds, not tender Integumentary: no rash, warm and dry Neurologic: alert, conversing, confused, able to move extremities Ext: no edema : Multani catheter and R nephrostomy tube Subjective Date of service: 11/18/20 Principal diagnosis: r ureteral stone Objective - Vital Signs Vital signs: Vital Signs - 12hr 11/18/20 03:35 Temperature 98.0 F Pulse Rate 64 Respiratory 16 Rate Blood Pressure 140/82 O2 Sat by Pulse 91 Oximetry - Lab 11/18/20 10:09 11/18/20 10:09 Most recent lab results ABG pH 7.440 (7.320-7.450) 11/14/20 08:42 ABG O2 Saturation 93.9 (0-100) 11/14/20 08:42 Calcium 9.0 mg/dL (8.4-10.2) 11/17/20 08:17 Phosphorus 1.90 mg/dL (2.5-4.5) L 11/17/20 08:17 Magnesium 2.00 mg/dL (1.7-2.3) 11/14/20 08:18 Medications & Allergies - Medications Allergies/Adverse Reactions: Allergies Penicillins Allergy (Verified 11/14/20 07:33) Unknown Home Medications: Home Medications Medication Instructions Recorded Confirmed Last Taken Type Aspirin EC [Halfprin EC] 81 mg PO QDAY #30 tablet 11/18/20 Unknown Rx Phosphorus #1 [K-Phos Neutral] 250 mg PO QID #7 tablet 11/18/20 Unknown Rx levoFLOXacin [Levaquin] 750 mg PO QDAY #7 tablet 11/18/20 Unknown Rx Active Medications: Generic Name Dose Route Start Last Admin Trade Name Freq PRN Reason Stop Dose Admin Acetaminophen 650 mg 11/15/20 17:17 Acetaminophen 325 Mg Tab PO Q6H PRN Pain, Mild (1-3) Aspirin 81 mg 11/15/20 12:00 11/18/20 09:09 Aspirin Ec 81 Mg Tab PO 81 mg QDAY GUME Administration Sodium Chloride 1,000 mls @ 75 mls/hr 11/14/20 22:00 11/18/20 09:10 Nacl 0.9% 1000 Ml IV 75 mls/hr DIRECT GUME Administration Levofloxacin/Dextrose 750 mg in 150 mls @ 100 mls/hr 11/17/20 11:00 11/18/20 09:09 Levaquin 750mg/150ml IV 100 mls/hr Q24HR GUME Administration Protocol Sodium Phosphate 250 mg 11/17/20 18:00 11/18/20 09:09 K-Phos Neutral 250 Mg Tab PO 250 mg QID GUME Administration
[2020-11-18 10:38] LABS: Hematocrit 37.9 % (30.3-42.9); Hemoglobin 12.2 gm/dl (10.1-14.3)
[2020-11-18 11:46] LABS: Blood Urea Nitrogen 8 mg/dL (7-17); Hemolysis Index 3
[2020-11-18 11:47] LABS: BUN/Creatinine Ratio 11
--- NOTE | 2020-11-18 13:13 | Discharge Summary ---
Providers - Providers Date of Admission: 11/15/20 14:00 Date of discharge: 11/18/20 Attending physician: BENJI HOWE 11/14/20 13:54 Consult to Physician [CONS] Routine Comment: Consulting Provider: LOKI GONCALVES Physician Instructions: Reason For Exam: hypercalcemia 11/15/20 11:51 Consult to Physician [CONS] Routine Comment: Consulting Provider: JAN MONTERROSO Physician Instructions: Reason For Exam: atrial fib 11/16/20 15:37 Consult to Physician [CONS] Routine Comment: Consulting Provider: BERTHA HUERTA Physician Instructions: Reason For Exam: aortic mural thrombus 11/16/20 16:13 Consult to Physician [CONS] Routine Comment: Consulting Provider: JACQUELINE MORRELL Physician Instructions: Reason For Exam: R hydronephrosis. 11/16/20 17:28 Physical Therapy Evaluation and Treat [CONS] Routine Comment: Reason For Exam: to eval for home health aide and PT Primary care physician: FORGING ROLL OPERATOR Hospitalization Condition: Stable Hospital course: This is an 80-year-old female who is brought by her family for evaluation of generalized weakness. She was transported via EMS and found to have a blood sugar in the 70s. The patient does state that she is diabetic but is not on insulin. She stated that that she feels weak and essentially complains of generalized malaise, otherwise she is a poor historian. In the ER patient was reported to be in atrial fibrillation. Her calcium level noted to be elevated 12.4, patient was called for admission for further evaluation and management. Daily clinical course: 11/15: Noted CT abdomen pelvis findings. Continue to monitor BMP, calcium 11.5 today, phosphorus 2.0. Replete phosphorus level, patient remains normal sinus rhythm on telemetry. Continue aspirin for now. Will consult urology when service available for right severe hydronephrosis. Continue to follow clinically with supportive care, monitor BMP. Follow vascular recommendation for aortic mural thrombus. CT abdomen/pelvis: 1. Severe right hydroureteronephrosis with large stone within the proximal to mid ureter. The stone measures 1.5 x 1.0 cm. There are also large area of calcification the inferior aspect of the right calyces of the right kidney. 2. Extensive mural thrombus throughout the aorta from the lower aspect of the thorax and into the level of the bifurcation. Areas of narrowing throughout the aorta is seen. 11/16: Ca level normal today, noted parathyroid scan results. Discussed with urologist and recommended to keep patient n.p.o. for possible cystoscopy/pyelogram with stent placement tomorrow. Continue to replete phosphate and potassium. Discussed management and plan of care with patient and patient's son at the bedside. 11/17: Patient is planned for cystogram with right pyelogram for possible stent placement if possible by urology otherwise plan for right PCN by IR. Calcium level remains normal, continue supportive care and follow clinically. 11/18: Patient appears clinically stable, had right PCN placed by IR yesterday. Procedure patient tolerated well. Discharge planning management with patient at the bedside. Patient will be discharged home today with home health once cleared by physical therapy. Patient was recommended to follow-up with neurologist in 1 week. Assessment and plan: Atrial fibrillation ??, NSR now -EKG on admission was in normal sinus rhythm, --Continue baby aspirin for now -2D echocardiogram showed preserved EF Severe symptomatic Dehydration -Managed with IV fluid hydration hypercalcemia -Calcium was 12.4 on admission, likely from primary hyperparathyroidism --Placed on IV fluid hydration, status post Lasix iv, s/p 1 dose of pamidronate -Calcium level low normal Diabetes mellitus type 2 -Placed on consistent carb diet, SSI Primary Hyperparathyroidism, likely -Noted to have elevated PTH, elevated calcium level -Ordered for parathyroid scan, further work-up as outpatient with strip catcher Hypophosphatemia, repleted and monitored level Hypokalemia, repleted and monitord level Hyponatremia, resolved with IV fluid hydration Moderate protein calorie malnutrition, dietary consulted Severe right hydroureteronephrosis with large stone within the proximal to mid ureter --consulted urology/IR for right hydrouteronephrosis, cont to follow BMP for now CT abdomen/pelvis: 1. Severe right hydroureteronephrosis with large stone within the proximal to mid ureter. The stone measures 1.5 x 1.0 cm. There are also large area of calcification the inferior aspect of the right calyces of the right kidney. s/p right PCN placement by IR Extensive mural thrombus throughout the aorta -Discussed with vascular surgeon about the mural thrombus of the aorta and according to vascular it might be a chronic finding and continue aspirin, statin for now. CT abdomen/pelvis: Extensive mural thrombus throughout the aorta from the lower aspect of the thorax and into the level of the bifurcation. Areas of narrowing throughout the aorta is seen. Remote tobacco abuse -Monitor clinically: Supportive care Acute metabolic encephalopathy, POA -Continue to follow clinically, cannot rule out underlying dementia CT head: 1. Prominent Central greater than cortical atrophy. 2. Advanced microvascular ischemic change. 3. No acute intracranial abnormality. Uterine fibroids. -H&H stable,-outpatient follow-up UTI, likely POA -Patient was prescribed Levaquin 750 mg daily for 7 days on discharge -DVT prophylaxis, PT OT evaluation, dietary consult Disposition: [id number] HOME UNDER HOME [facility] Final Discharge Diagnosis (Prints w/discharge instructions): Severe symptomatic dehydration. Hypercalcemia. Diabetes mellitus type 2. Primary hyperparathyroidism likely. Hypophosphatemia/hypokalemia/hyponatremia. Moderate protein calorie malnutrition. Severe right hydronephrosis with large stone. Right nephrolithiasis status post right PCN by IR. Extensive mural thrombus throughout the aorta, chronic. Remote tobacco abuse. Acute metabolic encephalopathy, resolved. Uterine fibroid, need outpatient follow-up. UTI Time spent for discharge: 34 minutes Core Measure Documentation - Palliative Care Palliative Care/ Comfort Measures: Not Applicable - Core Measures Any of the following diagnoses?: none Exam - Physical Exam Narrative exam: GENERAL: elderly AAF lying on bed appeared to be in no discomfort but lethargic. HEENT: Normocephalic. Atraumatic. No conjunctival congestion or icterus. Patient has moist mucous membranes. NECK: Supple. Trachea midline. CHEST/LUNGS: Clear to auscultated bilaterally, breathing nonlabored. No wheezes crackles or rhonchi. HEART/CARDIOVASCULAR: Regular in rate and rhythm. S1 and S2 positive. ABDOMEN: Abdomen is soft, nontender. Patient has normal bowel sounds. Right PCN tube in place SKIN: There is no rash. Warm and dry. NEURO: No focal motor deficit. Follows command. MUSCULOSKELETAL: No joint effusion or tenderness. EXTRIMITY: No edema, no cyanosis or clubbing. PSYCH: Cooperative. - Constitutional Vitals: Temp Pulse Resp BP Pulse Ox 98.0 F 64 18 140/82 91 11/18/20 03:35 11/18/20 03:35 11/18/20 12:37 11/18/20 03:35 11/18/20 03:35 Plan Activity: advance as tolerated Weight Bearing Status: Weight Bear as Tolerated Diet: diabetic Wound: per your surgeon's advice Additional Instructions: Follow-up with urologist in 1 week for right nephrolithiasis. Follow-up with strip catcher for hypercalcemia and possible hyperparathyroidism. Please follow-up with BUFFER COPPER for uterine fibroid. Repeat CBC and BMP in 1 week Follow up with: PRIMARY CARE, [Primary Care Provider] - 7 Days JACQUELINE MORRELL MD [Staff Physician] - 7 Days Prescriptions: AtorvaSTATin [Lipitor] 40 mg PO QHS #30 tab Aspirin EC [Halfprin EC] 81 mg PO QDAY #30 tablet Phosphorus #1 [K-Phos Neutral] 250 mg PO QID #7 tablet levoFLOXacin [Levaquin] 750 mg PO QDAY #7 tablet
[2020-11-18 13:34] VITALS: BP 124/78
[2020-11-18 16:27] LABS: Vitamin D, 25-OH, D2 35 ng/mL
[2020-11-18] MEDS ORDERED: POTASSIUM PHOSPHATE 30 MMOL in SODIUM CHLORIDE 0.9% 500 ML 500 ML IV ONE (18:00)
--- NOTE | 2020-11-19 14:02 | Electrocardiograph Report ---
[facility] Test Date: 2020-11-14 Test Time: 10:16:33 Pat Name: CORA POLLARD Department: Room: A390 1 Gender: F Restorative Art Embalmer: ANIKA : 1940 Requested By: KEHINDE ELY Order Number: [id number] Reading MD: Denita Alicea Measurements Intervals [place] Rate: 81 P: 53 NE: 176 QRS: -27 QRSD: 77 T: 25 QT: 328 QTc: 382 Interpretive Statements Sinus rhythm Inferior infarct, old No previous ECG available for comparison Electronically Signed On 11-19-2020 14:01:53 EDT by Denita Alicea
--- NOTE | 2020-11-19 17:03 | Electrocardiograph Report ---
[facility] Test Date: 2020-11-16 Test Time: 07:59:57 Pat Name: CORA POLLARD Department: Room: A390 1 Gender: F Book Editor: LUCY : 1940 Requested By: BENJI HOWE Order Number: [id number] Reading MD: Doug Ji Measurements Intervals [place] Rate: 77 P: 49 [place]: 189 QRS: 7 QRSD: 75 T: 49 QT: 334 QTc: 379 Interpretive Statements Sinus rhythm Compared to ECG 11/14/2020 10:16:33 Myocardial infarct finding no longer present Electronically Signed On 11-19-2020 17:03:34 EDT by Doug Ji
== END 2020-11-18 18:27 | disposition home health service (06) | DRG 693 ==
LOC: ED 07:22 → 3A 11:52 → INTOOBSV 11:52 → OBSVTOIN 11-15 14:00 → INTOOBSV 11-16 14:00 → OBSVTOIN 11-16 14:00
PROVIDERS: ADMIT Internal Medicine; ATTEND Internal Medicine
PROC: 4A033R1 Measurement of Arterial Saturation, Peripheral, Percutaneous Approach (ICD-10-PCS; 2020-11-14)
PROC: 0TJ53ZZ Inspection of Kidney, Percutaneous Approach (ICD-10-PCS; principal; 2020-11-17)
PROC: BT11YZZ Fluoroscopy of Right Kidney using Other Contrast (ICD-10-PCS; 2020-11-17)
PROC: 0T903ZZ Drainage of Right Kidney, Percutaneous Approach (ICD-10-PCS; 2020-11-17)
PROC: BT1D1ZZ Fluoroscopy of Right Kidney, Ureter and Bladder using Low Osmolar Contrast (ICD-10-PCS; 2020-11-17)
DX: N13.2 Hydronephrosis with renal and ureteral calculous obstruction (principal); G93.41 Metabolic encephalopathy; E44.0 Moderate protein-calorie malnutrition; E87.1 Hypo-osmolality and hyponatremia; R64 Cachexia; I74.10 Embolism and thrombosis of unspecified parts of aorta; E86.0 Dehydration; I48.91 Unspecified atrial fibrillation; E11.9 Type 2 diabetes mellitus without complications; E21.0 Primary hyperparathyroidism; D25.9 Leiomyoma of uterus, unspecified; F03.90 Unspecified dementia, unspecified severity, without behavioral disturbance, psychotic disturbance, mood disturbance, and anxiety; Z68.20 Body mass index [BMI] 20.0-20.9, adult; Z79.899 Other long term (current) drug therapy; Z79.891 Long term (current) use of opiate analgesic; Z79.01 Long term (current) use of anticoagulants; Z79.84 Long term (current) use of oral hypoglycemic drugs; Z88.0 Allergy status to penicillin
CPT/HCPCS: 36415; 50432; 70450; 71045; 74177; 74420; 78070; 80048; 80061; 80076; 81001; 82140; 82306; 82550; 82553; 82805; 82962; 83735; 83880; 83970; 84100; 84439; 84443; 84484; 85007; 85014; 85018; 85025; 85049; 85610; 85730; 87040; 87076; 87086; 87186; 93005; 93306; 96365; G0378; A9500; C1726; C1729; C1751; C1758; C1769; J1650; J1940; J1956; J2250; J2430; J2704; J3010; J7030; J7040; Q9967

== ENCOUNTER 2021-01-16 22:43 | Inpatient (IN) | payer MEDICARE ==
[2021-01-16] MEDS ORDERED: SODIUM CHLORIDE 0.9% 500 ML 500 ML IV ONE (23:24)
--- NOTE | 2021-01-16 23:28 | Emergency Department Report ---
ED Altered Mental Status HPI - General Chief Complaint: Altered Mental Status Stated Complaint: AMS Time Seen by Provider: 01/16/21 23:20 Source: EMS Mode of arrival: Stretcher Limitations: Altered Mental Status - History of Present Illness Initial Comments: Patient is 80 years old female with history of hypertension, diabetes and possible dementia. Patient brought to the emergency room via EMS from home for evaluation of altered mental status and decreased responsiveness. EMS stated that patient initial oxygen saturation was 82 improved to 96% on 2 L. Patient is not communicating well due to her current mental status so history is limited to EMS report. MD Complaint: altered mental status, confusion, decreased responsiveness, weakness -: days(s) Severity: moderate - Related Data Previous Rx's Medication Instructions Recorded Last Taken Type Aspirin EC [Halfprin EC] 81 mg PO QDAY #30 tablet 11/18/20 Unknown Rx Phosphorus #1 [K-Phos Neutral] 250 mg PO QID #7 tablet 11/18/20 Unknown Rx levoFLOXacin [Levaquin] 750 mg PO QDAY #7 tablet 11/18/20 Unknown Rx AtorvaSTATin [Lipitor] 40 mg PO QHS #30 tab 11/19/20 Unknown Rx Allergies Allergy/AdvReac Type Severity Reaction Status Date / Time Penicillins Allergy Unknown Verified 11/14/20 07:33 ED Review of Systems ROS: Stated complaint: AMS Other details as noted in HPI Comment: Unobtainable due to pts medical conditions ED Past Medical Hx - Past Medical History Hx Hypertension: Yes Hx Diabetes: Yes Hx Renal Disease: Yes (Severe right hydroureteronephrosis with large stone within the proximal to ) - Social History Smoking Status: Never Smoker - Medications Home Medications: Home Medications Medication Instructions Recorded Confirmed Last Taken Type Aspirin EC [Halfprin EC] 81 mg PO QDAY #30 tablet 11/18/20 Unknown Rx Phosphorus #1 [K-Phos Neutral] 250 mg PO QID #7 tablet 11/18/20 Unknown Rx levoFLOXacin [Levaquin] 750 mg PO QDAY #7 tablet 11/18/20 Unknown Rx AtorvaSTATin [Lipitor] 40 mg PO QHS #30 tab 11/19/20 Unknown Rx ED Physical Exam - General Limitations: Altered Mental Status General appearance: alert, in no apparent distress - Head Head exam: Present: atraumatic, normocephalic, normal inspection - Eye Eye exam: Present: normal appearance - ENT ENT exam: Present: mucous membranes dry - Neck Neck exam: Present: normal inspection, full ROM. Absent: tenderness, menin gismus - Respiratory Respiratory exam: Present: normal lung sounds bilaterally - Cardiovascular Cardiovascular Exam: Present: tachycardia, irregular rhythm - GI/Abdominal GI/Abdominal exam: Present: soft, normal bowel sounds. Absent: distended, tenderness, guarding, rebound, rigid, organomegaly, mass, bruit, pulsatile mass, hernia - Extremities Exam Extremities exam: Present: normal inspection, full ROM, normal capillary refill. Absent: tenderness - Back Exam Back exam: Present: normal inspection, full ROM. Absent: tenderness, CVA tenderness (R), CVA tenderness (L) - Neurological Exam Neurological exam: Present: alert, altered - Psychiatric Psychiatric exam: Present: flat affect - Skin Skin exam: Present: warm, dry, intact - Lab Data Result diagrams: 01/17/21 00:17 01/17/21 00:17 Lab Results 01/17/21 01/17/21 01/17/21 Range/Units 00:17 00:17 00:17 WBC 20.3 H (4.5-11.0) K/mm3 RBC 5.03 (3.65-5.03) M/mm3 Hgb 13.8 (10.1-14.3) gm/dl Hct 44.7 H (30.3-42.9) % MCV 89 (79-97) fl MCH 27 L (28-32) pg MCHC 31 (30-34) % RDW 17.4 H (13.2-15.2) % Plt Count 224 (140-440) K/mm3 Seg Neutrophils % Property Utilization Manager PT 17.2 H (12.2-14.9) Sec. INR 1.35 H (0.87-1.13) APTT 32.6 (24.2-36.6) Sec. Sodium 141 (137-145) mmol/L Potassium 3.2 L (3.6-5.0) mmol/L Chloride 105.4 (98-107) mmol/L Carbon Dioxide 20 L (22-30) mmol/L Anion Gap 19 mmol/L BUN 10 (7-17) mg/dL Creatinine 1.4 H (0.6-1.2) mg/dL Estimated GFR 43 ml/min BUN/Creatinine Ratio 7 % Glucose 159 H (65-100) mg/dL Lactic Acid (0.7-2.0) mmol/L Calcium 12.4 H* (8.4-10.2) mg/dL Total Bilirubin 0.70 (0.1-1.2) mg/dL Direct Bilirubin 0.4 H (0-0.2) mg/dL Indirect Bilirubin 0.3 mg/dL AST 29 (5-40) units/L ALT 14 (7-56) units/L Alkaline Phosphatase 111 (35-129) units/L Ammonia (25-60) umol/L Total Creatine Kinase 35 (30-135) units/L Troponin T 0.168 H* (0.00-0.029) ng/mL Total Protein 8.3 H (6.3-8.2) g/dL Albumin 3.3 L (3.9-5) g/dL Albumin/Globulin Ratio 0.7 % TSH (0.270-4.200) mlU/mL 01/17/21 01/17/21 01/17/21 Range/Units 00:17 00:17 00:17 WBC (4.5-11.0) K/mm3 RBC (3.65-5.03) M/mm3 Hgb (10.1-14.3) gm/dl Hct (30.3-42.9) % MCV (79-97) fl MCH (28-32) pg MCHC (30-34) % RDW (13.2-15.2) % Plt Count (140-440) K/mm3 Seg Neutrophils % PT (12.2-14.9) Sec. INR (0.87-1.13) APTT (24.2-36.6) Sec. Sodium (137-145) mmol/L Potassium (3.6-5.0) mmol/L Chloride (98-107) mmol/L Carbon Dioxide (22-30) mmol/L Anion Gap mmol/L BUN (7-17) mg/dL Creatinine (0.6-1.2) mg/dL Estimated GFR ml/min BUN/Creatinine Ratio % Glucose (65-100) mg/dL Lactic Acid 6.30 H* (0.7-2.0) mmol/L Calcium (8.4-10.2) mg/dL Total Bilirubin (0.1-1.2) mg/dL Direct Bilirubin (0-0.2) mg/dL Indirect Bilirubin mg/dL AST (5-40) units/L ALT (7-56) units/L Alkaline Phosphatase (35-129) units/L Ammonia 47.0 (25-60) umol/L Total Creatine Kinase (30-135) units/L Troponin T (0.00-0.029) ng/mL Total Protein (6.3-8.2) g/dL Albumin (3.9-5) g/dL Albumin/Globulin Ratio % TSH 1.410 (0.270-4.200) mlU/mL - EKG Data -: EKG Interpreted by Me Rate: tachycardia 01/17/21 01:50 Atrial fibrillation with RVR - Radiology Data Radiology results: report reviewed - Medical Decision Making Patient is 80 years old female with history of hypertension, diabetes and possible dementia. Patient brought to the emergency room via EMS from home for evaluation of altered mental status and decreased responsiveness. EMS stated that patient initial oxygen saturation was 82 improved to 96% on 2 L. Patient is not communicating well due to her current mental status so history is limited to EMS report. Patient is started on normal saline, Cardizem and Cardizem drip. Patient found to be septic with a lactic acid of 6.2. Patient received Levaquin. CT brain is negative for acute finding. Chest x-ray is unremarkable. I discussed the patient with Dr. Moran, he agreed to admit the patient to medical service for further management. Critical Care Time: Yes Critical care time in (mins) excluding proc time.: 30 Critical care attestation.: If time is entered above; I have spent that time in minutes in the direct care of this critically ill patient, excluding procedure time. ED Disposition Clinical Impression: Hypercalcemia, Sepsis, Atrial fibrillation with RVR Disposition: OP ADMIT IP TO THIS HOSP Is pt being admited?: Yes Condition: Stable
[2021-01-17] MEDS ORDERED: dilTIAZem 25 MG/5 ML INJ IV ONE (00:11)
[2021-01-17 00:35] LABS: Mean Corpuscular HGB Conc 31 % (30-34); Mean Corpuscular Volume 89 fl (79-97); Platelet Count 224 K/mm3 (140-440); Red Blood Count 5.03 M/mm3 (3.65-5.03); Red Cell Distribution Width 17.4 % (13.2-15.2)
--- NOTE | 2021-01-17 00:44 | Cat Scan Report ---
CT head/brain wo con INDICATION: Altered Mental Status. TECHNIQUE: Routine CT head. All CT scans at this location are performed using CT dose reduction for A GERARD by means of automated exposure control. COMPARISON: 11/14/2020 FINDINGS: Intracranial: Fox-white matter differentiation is maintained. No intracranial hemorrhage. No extra a xial collection. No hydrocephalus. No herniation. Periventricular and centrum semiovale white matter hypoattenuation most consistent with sequela of chronic microvascular disease. Sinuses: Paranasal sinuses and mastoid air cells are essentially clear. Orbits: Globes are intact. Calvarium: No acute fracture. IMPRESSION: 1. No acute intracranial abnormality. Signer Name: Antony Short MD Signed: 01/17/2021 12:40 AM Workstation Name: [id number]
[2021-01-17 00:59] LABS: Albumin 3.3 g/dL (3.9-5); Bilirubin,Direct 0.4 mg/dL (0-0.2)
[2021-01-17 01:00] LABS: Hematocrit 44.7 % (30.3-42.9); Hemoglobin 13.8 gm/dl (10.1-14.3)
[2021-01-17] MEDS ORDERED: dilTIAZem/D5W 100 MG/100 ML BAG IV SCH (01:00)
[2021-01-17 01:04] LABS: Calcium 12.4 mg/dL (8.4-10.2); INR 1.35 (0.87-1.13)
[2021-01-17 01:05] LABS: Partial Thromboplastin Time 32.6 Sec. (24.2-36.6)
[2021-01-17] MEDS ORDERED: SODIUM CHLORIDE 0.9% 1000 ML 1,000 ML IV ONE (01:11)
--- NOTE | 2021-01-17 01:23 | XRay Report ---
XR chest 1V ap INDICATION / CLINICAL INFORMATION: AMS COMPARISON: Nov 14 2020 FINDINGS: SUPPORT DEVICES: None. HEART / MEDIASTINUM: No significant abnormality. LUNGS / PLEURA: Lungs are clear. Costophrenic sulci are sharp. No pneumothorax. ADDITIONAL FINDINGS: No significant additional findings. IMPRESSION: 1. No acute findings. Signer Name: Antony Short MD Signed: 01/17/2021 1:19 AM Workstation Name: [id number]
[2021-01-17 01:54] LABS: Amorphous Crystals,Urine Few; Bacteria,Urine 2+ /HPF (Negative); Mucus,Urine FEW /HPF
[2021-01-17 02:08] LABS: Chol/HDL Ratio 4.27 %
[2021-01-17 02:09] LABS: Bilirubin,Urine NEG (Negative); Blood,Urine LG (Negative); Color,Urine Yellow (Yellow); Urobilinogen,Urine < 2.0 mg/dL (<2.0)
[2021-01-17] MEDS ORDERED: NITROGLYCERIN 0.4 MG TAB SUBL SL PRN (02:30)
[2021-01-17] MEDS ORDERED: ONDANSETRON 4 MG/2 ML INJ IV PRN (02:30)
[2021-01-17] MEDS ORDERED: SODIUM CHLORIDE 0.9% 1000 ML 1,000 ML IV SCH (02:30)
[2021-01-17] MEDS ORDERED: ALBUTEROL 2.5 MG/3 ML NEBU IH PRN (02:30)
[2021-01-17] MEDS ORDERED: ACETAMINOPHEN 325 MG TAB PO PRN ×2 (02:30)
[2021-01-17] MEDS ORDERED: traMADol 50 MG TAB PO PRN (02:30)
[2021-01-17] MEDS ORDERED: POTASSIUM CHLORIDE 20 MEQ 20 MEQ/100 ML BAG IV PRN (02:30)
--- NOTE | 2021-01-17 02:41 | History and Physical Report ---
History of Present Illness Date of examination: 01/17/21 Date of admission: 01/17/2021 Chief complaint: Altered mental status History of present illness: 80 years old female with history of hypertension, diabetes and possible dementia was brought to the emergency room via EMS from home for evaluation of altered mental status and decreased responsiveness. EMS stated that patient initial oxygen saturation was 82 improved to 96% on 2 L. Patient is not communicating well due to her current mental status so history is limited to EMS report. In the emergency room patient is found to have UTI sepsis and hypotensive . Patient potassium is 3.2 lactic acid initially 6.30 and calcium 12.4 and troponin 0 0.168 Past History Past Medical History: diabetes, hypertension, other (Dementia) Medications and Allergies Allergies Allergy/AdvReac Type Severity Reaction Status Date / Time Penicillins Allergy Unknown Verified 11/14/20 07:33 Home Medications Medication Instructions Recorded Confirmed Last Taken Type Aspirin EC [Halfprin EC] 81 mg PO QDAY #30 tablet 11/18/20 Unknown Rx Phosphorus #1 [K-Phos Neutral] 250 mg PO QID #7 tablet 11/18/20 Unknown Rx levoFLOXacin [Levaquin] 750 mg PO QDAY #7 tablet 11/18/20 Unknown Rx AtorvaSTATin [Lipitor] 40 mg PO QHS #30 tab 11/19/20 Unknown Rx Active Meds: Active Medications Diltiazem HCl (Cardizem/D5w 100mg/100ml) 100 mg in 100 mls @ 5 mls/hr IV TITR GUME; Protocol Review of Systems Constitutional: weakness, other (Altered mental status) Neurological: change in mentation Exam - Constitutional Vitals: Temp Pulse Resp BP Pulse Ox 97.5 F L 89 18 105/67 100 01/16/21 22:54 01/16/21 22:54 01/16/21 22:54 01/16/21 22:54 01/16/21 22:54 General appearance: Present: no acute distress, well-nourished - EENT Eyes: Present: PERRL ENT: hearing intact, clear oral mucosa - Neck Neck: Present: supple, normal ROM - Respiratory Respiratory effort: normal Respiratory: bilateral: CTA - Cardiovascular Rhythm: irregularly irregular Heart Sounds: Present: S1 & S2. Absent: rub, click - Extremities Extremities: pulses symmetrical, No edema Peripheral Pulses: within normal limits - Abdominal General gastrointestinal: Present: soft, non-tender, non-distended, normal bowel sounds Female genitourinary: Present: normal - Integumentary Integumentary: Present: clear, warm, dry - Musculoskeletal Musculoskeletal: gait normal, strength equal bilaterally - Psychiatric Psychiatric: appropriate mood/affect, intact judgment & insight - Neurologic Neurologic: CNII-XII intact, moves all extremities HEART Score - HEART Score Troponin: Troponin T 0.168 ng/mL (0.00-0.029) H* 01/17/21 00:17 Results - Labs CBC & Chem 7: 01/17/21 00:17 01/17/21 00:17 Labs: Laboratory Last Values WBC 20.3 K/mm3 (4.5-11.0) H 01/17/21 00:17 RBC 5.03 M/mm3 (3.65-5.03) 01/17/21 00:17 Hgb 13.8 gm/dl (10.1-14.3) 01/17/21 00:17 Hct 44.7 % (30.3-42.9) H 01/17/21 00:17 MCV 89 fl (79-97) 01/17/21 00:17 MCH 27 pg (28-32) L 01/17/21 00:17 MCHC 31 % (30-34) 01/17/21 00:17 RDW 17.4 % (13.2-15.2) H 01/17/21 00:17 Plt Count 224 K/mm3 (140-440) 01/17/21 00:17 Seg Neutrophils % Instructional Resource Teacher 01/17/21 00:17 PT 17.2 Sec. (12.2-14.9) H 01/17/21 00:17 INR 1.35 (0.87-1.13) H 01/17/21 00:17 APTT 32.6 Sec. (24.2-36.6) 01/17/21 00:17 Sodium 141 mmol/L (137-145) 01/17/21 00:17 Potassium 3.2 mmol/L (3.6-5.0) L 01/17/21 00:17 Chloride 105.4 mmol/L (98-107) 01/17/21 00:17 Carbon Dioxide 20 mmol/L (22-30) L 01/17/21 00:17 Anion Gap 19 mmol/L 01/17/21 00:17 BUN 10 mg/dL (7-17) 01/17/21 00:17 Creatinine 1.4 mg/dL (0.6-1.2) H 01/17/21 00:17 Estimated GFR 43 ml/min 01/17/21 00:17 BUN/Creatinine Ratio 7 % 01/17/21 00:17 Glucose 159 mg/dL (65-100) H 01/17/21 00:17 Lactic Acid 1.90 mmol/L (0.7-2.0) 01/17/21 01:44 Calcium 12.4 mg/dL (8.4-10.2) H* 01/17/21 00:17 Total Bilirubin 0.70 mg/dL (0.1-1.2) 01/17/21 00:17 Direct Bilirubin 0.4 mg/dL (0-0.2) H 01/17/21 00:17 Indirect Bilirubin 0.3 mg/dL 01/17/21 00:17 AST 29 units/L (5-40) 01/17/21 00:17 ALT 14 units/L (7-56) 01/17/21 00:17 Alkaline Phosphatase 111 units/L (35-129) 01/17/21 00:17 Ammonia 47.0 umol/L (25-60) 01/17/21 00:17 Total Creatine Kinase 35 units/L (30-135) 01/17/21 00:17 Troponin T 0.168 ng/mL (0.00-0.029) H* 01/17/21 00:17 Total Protein 8.3 g/dL (6.3-8.2) H 01/17/21 00:17 Albumin 3.3 g/dL (3.9-5) L 01/17/21 00:17 Albumin/Globulin Ratio 0.7 % 01/17/21 00:17 Triglycerides 152 mg/dL (2-149) H 01/17/21 00:17 Cholesterol 154 mg/dL (50-199) 01/17/21 00:17 LDL Cholesterol Direct 98 mg/dL (50-130) 01/17/21 00:17 HDL Cholesterol 36 mg/dL (40-59) L 01/17/21 00:17 Cholesterol/HDL Ratio 4.27 % 01/17/21 00:17 TSH 1.410 mlU/mL (0.270-4.200) 01/17/21 00:17 Urine Color Yellow (Yellow) 01/16/21 Unknown Urine Turbidity Cloudy (Clear) 01/16/21 Unknown Urine pH 7.0 (5.0-7.0) 01/16/21 Unknown Ur Specific [place] 1.005 (1.003-1.030) 01/16/21 Unknown Urine Protein 100 mg/dl mg/dL (Negative) 01/16/21 Unknown Urine Glucose (UA) Neg mg/dL (Negative) 01/16/21 Unknown Urine Ketones Neg mg/dL (Negative) 01/16/21 Unknown Urine Blood Lg (Negative) 01/16/21 Unknown Urine Nitrite Neg (Negative) 01/16/21 Unknown Ur Reducing Substances Not Reportable 01/16/21 Unknown Urine Bilirubin Neg (Negative) 01/16/21 Unknown Urine Ictotest Not Reportable 01/16/21 Unknown Urine Urobilinogen < 2.0 mg/dL (<2.0) 01/16/21 Unknown Ur Leukocyte Esterase Lg (Negative) 01/16/21 Unknown Urine WBC (Auto) 18.0 /HPF (0.0-6.0) H 01/16/21 Unknown Urine RBC (Auto) 16.0 /HPF (0.0-6.0) 01/16/21 Unknown U Epithel Cells (Auto) < 1.0 /HPF (0-13.0) 01/16/21 Unknown Urine Bacteria (Auto) 2+ /HPF (Negative) 01/16/21 Unknown Amorphous Crystals Few 01/16/21 Unknown Urine Mucus Few /HPF 01/16/21 Unknown Microbiology: Microbiology 01/17/21 00:17 Peripheral/Venous Blood Culture - Preliminary Culture in Progress 01/16/21 23:50 Peripheral/Venous Blood Culture - Preliminary Culture in Progress - Imaging and Cardiology Chest x-ray: report reviewed CT Scan - head: report reviewed Assessment and Plan VTE prophylaxis?: Chemical Plan of care discussed with patient/family: Yes - Patient Problems (1) Sepsis Current Visit: Yes Status: Acute Plan to address problem: Admit the patient to the critical care unit. Normal saline 1 L bolus. Normal saline at the rate of 150 cc/h. Levaquin 750 mils IV daily. We did do the blood culture urine culture. Repeat lactic acid in 4 hours. Will consult critical care evaluation (2) UTI (urinary tract infection) Current Visit: Yes Status: Acute Plan to address problem: Levaquin 750 mils IV daily. We did do the blood culture urine culture. Repeat lactic acid in 4 hours. Will consult critical care evaluation (3) Atrial fibrillation with RVR Current Visit: Yes Status: Acute Plan to address problem: Aspirin 81 mg p.o. daily. Lipitor 40 mg p.o. daily. Normal saline at the rate of 150 cc/h. Echocardiogram. Will consult cardiology for evaluation (4) Hypotension Current Visit: Yes Status: Acute Plan to address problem: Normal saline 1 L bolus. Normal saline at the rate of 150 cc/h. We will monitor the patient closely. If needed will start pressor (5) Diabetes Current Visit: Yes Status: Acute Plan to address problem: We will put the patient on Humalog sliding scale moderate dose coverage Accu- Chek before meals and at bedtime. We also consult diabetic education recheck BMP in the morning (6) Elevated troponin Current Visit: Yes Status: Acute Plan to address problem: Aspirin 81 mg p.o. daily. Lipitor 40 mg p.o. daily. Normal saline at the rate of 150 cc/h. Echocardiogram. Will consult cardiology for evaluation (7) Hypercalcemia Current Visit: Yes Status: Acute Plan to address problem: Normal saline 1 L bolus. Normal saline at the rate of 150 cc/h. Recheck BMP in the morning (8) Generalized weakness Current Visit: No Status: Acute Plan to address problem: . Normal saline at the rate 150 cc/h. Multivitamin 1 tablet p.o. daily. Will consult dietitian for evaluation (9) DVT prophylaxis Current Visit: Yes Status: Acute Plan to address problem: Heparin 5000 units subcu every 8 hours for DVT prophylaxis. Pepcid 20 mg IV every 12 hours for GI prophylaxis. Patient is a full code
[2021-01-17 03:01] LABS: Anisocytosis 1+; Band Neutrophils # (Manual) 0.3 K/mm3; Monocytes % (Manual) 1.5 % (0.0-7.3); Nucleated Red Blood Cells 0.5 % (0.0-0.9); Platelet Estimate Consistent w Auto; Total Cells Counted 200
[2021-01-17 03:18] LABS: Hematocrit 38.8 % (30.3-42.9); Hemoglobin 12.3 gm/dl (10.1-14.3); Mean Corpuscular HGB Conc 32 % (30-34); Mean Corpuscular Volume 89 fl (79-97); Red Blood Count 4.35 M/mm3 (3.65-5.03); Red Cell Distribution Width 16.9 % (13.2-15.2)
[2021-01-17 03:23] LABS: Platelet Count 159 K/mm3 (140-440)
[2021-01-17 03:38] LABS: Calcium 11.7 mg/dL (8.4-10.2)
[2021-01-17 04:37] LABS: Total Cells Counted 200
[2021-01-17 04:39] LABS: Anisocytosis 1+; Platelet Estimate Consistent w Auto
[2021-01-17] MEDS: INSULIN REGULAR, HUMAN 100 UNITS/1 ML SUB-Q SCH ×2 (09:00→13:36)
[2021-01-17] MEDS: FAMOTIDINE 20 MG/2 ML INJ IV SCH (09:44)
[2021-01-17] MEDS: ASPIRIN EC 81 MG TAB PO SCH (09:44)
[2021-01-17] MEDS ORDERED: K-PHOS NEUTRAL 250 MG TAB PO SCH (10:00)
[2021-01-17] MEDS ORDERED: FAMOTIDINE 20 MG/2 ML INJ IV SCH (10:00)
[2021-01-17] MEDS: IPRATROPIUM/ALBUTEROL SULFATE 3 ML AMPUL.NEB IH SCH ×2 (10:08→16:51)
[2021-01-17] MEDS ORDERED: HEPARIN 10,000 UNITS/10 ML VIAL IV ONE (11:40)
[2021-01-17] MEDS ORDERED: HEPARIN 10,000 UNITS/10 ML VIAL IV PRN (11:40)
--- NOTE | 2021-01-17 11:50 | Consultation ---
History of Present Illness Consult date: 01/17/21 Requesting physician: NICOLE MOTTA Consult reason: elevated troponin History of present illness: 81-year-old female history of renal stones was in the hospital 2 months ago for sepsis and obstructive uropathy and acute renal sufficiency patient was discharged. Patient was unable to get the urological procedure secondary insurance issues. Comes back as per the son who gives history with shaking and weak called the EMS found to be hypotensive and hypoxic. That is resolved with oxygen fluid bolus patient was found to have UTI with sepsis. Patient was found to have an EKG atrial fibrillation with abnormal troponin. Patient has dementia so history is difficult to ascertain but patient denies any chest pain shortness of breath laying in bed. As per the son denies any fever. Patient has been vaccinated with COVID-19. 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 as per vascular Past History Past Medical History: diabetes, hypertension, other (Dementia) Medications and Allergies Allergies Allergy/AdvReac Type Severity Reaction Status Date / Time Penicillins Allergy Unknown Verified 11/14/20 07:33 Home Medications Medication Instructions Recorded Confirmed Last Taken Type Aspirin EC [Halfprin EC] 81 mg PO QDAY #30 tablet 11/18/20 Unknown Rx Phosphorus #1 [K-Phos Neutral] 250 mg PO QID #7 tablet 11/18/20 Unknown Rx levoFLOXacin [Levaquin] 750 mg PO QDAY #7 tablet 11/18/20 Unknown Rx AtorvaSTATin [Lipitor] 40 mg PO QHS #30 tab 11/19/20 Unknown Rx Active Meds: Active Medications Acetaminophen (Acetaminophen 325 Mg Tab) 650 mg PO Q4H PRN PRN Reason: Pain MILD(1-3)/Fever >100.5/EDWARDS Albuterol (Albuterol 2.5 Mg/3 Ml Nebu) 2.5 mg IH Q4HRT PRN PRN Reason: Shortness Of Breath Albuterol/Ipratropium (Ipratropium/Albuterol Sulfate 3 Ml Ampul.Neb) 1 ampul IH Q6HRT [facility] Last Admin: 01/17/21 10:08 Dose: 1 ampul Documented by: Aspirin (Aspirin Ec 81 Mg Tab) 81 mg PO QDAY [facility] Last Admin: 01/17/21 09:44 Dose: 81 mg Documented by: Atorvastatin Calcium (Atorvastatin 40 Mg Tab) 40 mg PO QHS GUME Dextrose (Dextrose 50% In Water (25gm) 50 Ml Syringe) 50 ml IV Q30MIN PRN; Protocol PRN Reason: Hypoglycemia Famotidine (Famotidine 20 Mg/2 Ml Inj) 20 mg IV DAILY GUME Last Admin: 01/17/21 09:44 Dose: 20 mg Documented by: Heparin Protocol (Heparin No Bolus) 1 each IV ONCE ONE Stop: 01/17/21 11:41 Heparin Sodium (Porcine) (Heparin 10,000 Units/10 Ml Vial) 0 unit IV ONCE ONE; Protocol Stop: 01/17/21 11:41 Heparin Sodium (Porcine) (Heparin 10,000 Units/10 Ml Vial) 0 unit IV Q6H PRN; Protocol PRN Reason: Anti-Xa Assay < 0.1 units/ml Diltiazem HCl (Cardizem/D5w 100mg/100ml) 100 mg in 100 mls @ 5 mls/hr IV TITR GUME; Protocol Sodium Chloride (Nacl 0.9% 1000 Ml) 1,000 mls @ 150 mls/hr IV DIRECT GUME Levofloxacin/Dextrose (Levaquin 750mg/150ml) 750 mg in 150 mls @ 100 mls/hr IV Q48H GUME; Protocol Insulin Human Regular (Insulin Regular, Human 100 Units/1 Ml) 0 units SUB-Q ACHS GUME; Protocol Last Admin: 01/17/21 09:00 Dose: Not Given Documented by: Metoprolol Tartrate (Metoprolol Tartrate 25 Mg Tab) 25 mg PO BID GUME Nitroglycerin (Nitroglycerin 0.4 Mg Tab Subl) 0.4 mg SL Q5M PRN PRN Reason: Chest Pain Ondansetron HCl (Ondansetron 4 Mg/2 Ml Inj) 4 mg IV Q8H PRN PRN Reason: Nausea And Vomiting Sodium Chloride (Sodium Chloride 0.9% 10 Ml Flush Syringe) 10 ml IV BID GUME Sodium Chloride (Sodium Chloride 0.9% 10 Ml Flush Syringe) 10 ml IV PRN PRN PRN Reason: LINE FLUSH Sodium Phosphate (K-Phos Neutral 250 Mg Tab) 250 mg PO QID GUME Tramadol HCl (Tramadol 50 Mg Tab) 50 mg PO Q6H PRN PRN Reason: Pain, Moderate (4-6) Review of Systems ROS unobtainable: due to mental status Physical Examination Vital Signs Temp Pulse Resp BP Pulse Ox 97.5 F L 89 18 105/67 100 01/16/21 22:54 01/16/21 22:54 01/16/21 22:54 01/16/21 22:54 01/16/21 22:54 General appearance: no acute distress, well-nourished HEENT: Positive: PERRL, Mucus Membranes Moist Neck: Positive: neck supple, trachea midline Cardiac: Positive: Irregularly Regular, S1/S2, Audible Murmur Lungs: Positive: clear to auscultation, Normal Breath Sounds Neuro: Positive: Grossly Intact Abdomen: Positive: Soft, Active Bowel Sounds. Negative: Tender, Distended Female genitourinary: deferred Skin: Positive: Clear Incision: Cardiac Cath Site Musculoskeletal: No Pain, Normal Range of Motion Extremities: Present: normal. Absent: edema Results 01/17/21 03:09 01/17/21 03:09 Cardiac Enzymes 01/17/21 Range/Units 00:17 AST 29 (5-40) units/L Coagulation 01/17/21 Range/Units 00:17 PT 17.2 H (12.2-14.9) Sec. INR 1.35 H (0.87-1.13) APTT 32.6 (24.2-36.6) Sec. Lipids 01/17/21 Range/Units 00:17 Triglycerides 152 H (2-149) mg/dL Cholesterol 154 (50-199) mg/dL HDL Cholesterol 36 L (40-59) mg/dL Cholesterol/HDL Ratio 4.27 % CBC 01/17/21 01/17/21 Range/Units 00:17 03:09 WBC 20.3 H 22.5 H (4.5-11.0) K/mm3 RBC 5.03 4.35 (3.65-5.03) M/mm3 Hgb 13.8 12.3 (10.1-14.3) gm/dl Hct 44.7 H 38.8 (30.3-42.9) % Plt Count 224 159 (140-440) K/mm3 Comprehensive Metabolic Panel 01/17/21 01/17/21 Range/Units 00:17 03:09 Sodium 141 141 (137-145) mmol/L Potassium 3.2 L 4.3 D (3.6-5.0) mmol/L Chloride 105.4 106.5 (98-107) mmol/L Carbon Dioxide 20 L 23 (22-30) mmol/L BUN 10 11 (7-17) mg/dL Creatinine 1.4 H 1.5 H (0.6-1.2) mg/dL Glucose 159 H 157 H (65-100) mg/dL Calcium 12.4 H* 11.7 H (8.4-10.2) mg/dL Direct Bilirubin 0.4 H (0-0.2) mg/dL Indirect Bilirubin 0.3 mg/dL AST 29 (5-40) units/L ALT 14 (7-56) units/L Alkaline Phosphatase 111 (35-129) units/L Total Protein 8.3 H (6.3-8.2) g/dL Albumin 3.3 L (3.9-5) g/dL - Imaging and Cardiology Echo: pending EKG interpretations - Telemetry EKG Rhythm: Atrial Fibrillation - EKG Sinus rhythms and dysrhythmias: sinus rhythm Assessment and Plan 81-year-old female with diabetes hyperlipidemia has dementia history by the son has a urinary tract infection with sepsis hypotension hypoxemia with new onset proximal atrial fibrillation with abnormal troponin suggestive of non-STEMI from demand mismatch. Treat patient IV heparin low-dose beta-criss aspirin statin echocardiogram. Patient will need urological consultation for persistent renal stone as a possible cause of UTI - Patient Problems (1) Paroxysmal A-fib Current Visit: Yes Status: Acute (2) Non-STEMI (non-ST elevated myocardial infarction) Current Visit: Yes Status: Acute (3) Diabetes Current Visit: Yes Status: Chronic Qualifiers: Diabetes mellitus type: type 2 (4) Hypercalcemia Current Visit: Yes Status: Acute (5) Hypotension Current Visit: Yes Status: Acute (6) Sepsis Current Visit: Yes Status: Acute (7) UTI (urinary tract infection) Current Visit: Yes Status: Acute (8) Acute respiratory failure with hypoxemia Current Visit: Yes Status: Acute
--- NOTE | 2021-01-17 14:26 | Progress Note ---
Assessment and Plan Assessment and plan: Sepsis secondary to urinary tract infection Current Visit: Yes Status: Acute Plan to address problem: Fluid boluses Fluids Blood culture and urine culture pending Continue Levaquin antibiotics UTI (urinary tract infection) Current Visit: Yes Status: Acute Plan to address problem: Levaquin antibiotics Fluids Urine cultures Hematuria Likely secondary to from urinary tract infection Renal ultrasound pending Atrial fibrillation with RVR Current Visit: Yes Status: Acute Plan to address problem: Aspirin Lipitor Patient converted, Cardizem I am not needed Cardiology consulted Echocardiogram pending Hypotension Current Visit: Yes Status: Acute Plan to address problem: Fluid bolus x1 L Continue fluids Hypotension resolved Diabetes mellitus type II Current Visit: Yes Status: Acute Plan to address problem: Insulin sliding scale Elevated troponin, most likely NSTEMI type II Current Visit: Yes Status: Acute Plan to address problem: Cardiology consulted Echocardiogram Low-dose heparin drip for now Hypercalcemia Current Visit: Yes Status: Acute Plan to address problem: Fluid bolus, continue fluids Generalized weakness Current Visit: No Status: Acute Plan to address problem: Normal saline at the rate 150 cc/h. Multivitamin 1 tablet p.o. daily. Dietary supplements Moderate caloric/ malnutrition Dietary supplements DVT prophylaxis Current Visit: Yes Status: Acute Plan to address problem: Heparin 5000 units subcu every 8 hours for DVT prophylaxis. Pepcid 20 mg IV every 12 hours for GI prophylaxis. Patient is a full code History Interval history: 01/17/2021: Patient seen and examined, no acute distress, states that she is hungry. Spoke with cardiology pertaining to patient's plan of care. Hospitalist Physical - Physical exam Narrative exam: General appearance: no acute distress, thin EENT: PERRL, EOM intact, hearing intact, clear oral mucosa Neck: Present: supple, normal ROM Respiratory: Nasal cannula oxygen, bilateral CTA, negative: rales, rhonchi, wheezing Cardiovascular: Regular rate/rhythm, Normal S1 & S2. No gallop, rub Extremities: no ischemia, No edema, normal temperature, normal color, Full ROM Abdominal: soft, no tenderness, non-distended, normal bowel sounds Integumentary: Present: clear, warm, dry no wounds, no erythema noted Psychiatric: appropriate mood/affect, intact judgment & insight Neurologic: CNII-XII intact, moves all extremities, no sensory or motor abnorm alities - Constitutional Vitals: Temp Pulse Resp BP Pulse Ox 97.5 F L 75 16 131/77 99 01/16/21 22:54 01/17/21 13:23 01/17/21 13:23 01/17/21 13:23 01/17/21 13:23 HEART Score - HEART Score Troponin: Troponin T 0.168 ng/mL (0.00-0.029) H* 01/17/21 00:17 Results - Labs CBC & Chem 7: 01/17/21 03:09 01/17/21 03:09 Labs: Laboratory Last Values WBC 22.5 K/mm3 (4.5-11.0) H 01/17/21 03:09 RBC 4.35 M/mm3 (3.65-5.03) 01/17/21 03:09 Hgb 12.3 gm/dl (10.1-14.3) 01/17/21 03:09 Hct 38.8 % (30.3-42.9) 01/17/21 03:09 MCV 89 fl (79-97) 01/17/21 03:09 MCH 28 pg (28-32) 01/17/21 03:09 MCHC 32 % (30-34) 01/17/21 03:09 RDW 16.9 % (13.2-15.2) H 01/17/21 03:09 Plt Count 159 K/mm3 (140-440) 01/17/21 03:09 Add Manual Diff Complete 01/17/21 03:09 Total Counted 200 01/17/21 03:09 Seg Neutrophils % Neuropsychiatric Aide 01/17/21 03:09 Seg Neuts % (Manual) 97.0 % (40.0-70.0) H 01/17/21 03:09 Band Neutrophils % 1.5 % 01/17/21 00:17 Lymphocytes % (Manual) 3.0 % (13.4-35.0) L 01/17/21 03:09 Monocytes % (Manual) 1.5 % (0.0-7.3) 01/17/21 00:17 Nucleated RBC % Not Reportable 01/17/21 03:09 Seg Neutrophils # Man 21.8 K/mm3 (1.8-7.7) H 01/17/21 03:09 Band Neutrophils # 0.0 K/mm3 01/17/21 03:09 Lymphocytes # (Manual) 0.7 K/mm3 (1.2-5.4) L 01/17/21 03:09 Abs React Lymphs (Man) 0.0 K/mm3 01/17/21 03:09 Monocytes # (Manual) 0.0 K/mm3 (0.0-0.8) 01/17/21 03:09 Eosinophils # (Manual) 0.0 K/mm3 (0.0-0.4) 01/17/21 03:09 Basophils # (Manual) 0.0 K/mm3 (0.0-0.1) 01/17/21 03:09 Metamyelocytes # 0.0 K/mm3 01/17/21 03:09 Myelocytes # 0.0 K/mm3 01/17/21 03:09 Promyelocytes # 0.0 K/mm3 01/17/21 03:09 Blast Cells # 0.0 K/mm3 01/17/21 03:09 WBC Morphology Not Reportable 01/17/21 03:09 Hypersegmented Neuts Not Reportable 01/17/21 03:09 Hyposegmented Neuts Not Reportable 01/17/21 03:09 Hypogranular Neuts Not Reportable 01/17/21 03:09 Smudge Cells Not Reportable 01/17/21 03:09 Toxic Granulation Not Reportable 01/17/21 03:09 Toxic Vacuolation Not Reportable 01/17/21 03:09 Dohle Bodies Not Reportable 01/17/21 03:09 Pelger-Huet Anomaly Not Reportable 01/17/21 03:09 Allan Rods Not Reportable 01/17/21 03:09 Platelet Estimate Consistent w auto 01/17/21 03:09 Clumped Platelets Not Reportable 01/17/21 03:09 Plt Clumps, EDTA Not Reportable 01/17/21 03:09 Large Platelets Not Reportable 01/17/21 03:09 Giant Platelets Not Reportable 01/17/21 03:09 Platelet Satelliting Not Reportable 01/17/21 03:09 Plt Morphology Comment Not Reportable 01/17/21 03:09 RBC Morphology Not Reportable 01/17/21 03:09 Dimorphic RBCs Not Reportable 01/17/21 03:09 Polychromasia Not Reportable 01/17/21 03:09 Hypochromasia Not Reportable 01/17/21 03:09 Poikilocytosis Not Reportable 01/17/21 03:09 Anisocytosis 1+ 01/17/21 03:09 Microcytosis Not Reportable 01/17/21 03:09 Macrocytosis Not Reportable 01/17/21 03:09 Spherocytes Not Reportable 01/17/21 03:09 Pappenheimer Bodies Not Reportable 01/17/21 03:09 Sickle Cells Not Reportable 01/17/21 03:09 Target Cells Not Reportable 01/17/21 03:09 Tear Drop Cells Not Reportable 01/17/21 03:09 Ovalocytes Not Reportable 01/17/21 03:09 Helmet Cells Not Reportable 01/17/21 03:09 [place] Bodies Not Reportable 01/17/21 03:09 Mccaskill Rings Not Reportable 01/17/21 03:09 Cassius Cells Not Reportable 01/17/21 03:09 Bite Cells Not Reportable 01/17/21 03:09 Crenated Cell Not Reportable 01/17/21 03:09 Elliptocytes Not Reportable 01/17/21 03:09 Acanthocytes (Spur) Not Reportable 01/17/21 03:09 Rouleaux Not Reportable 01/17/21 03:09 Hemoglobin C Crystals Not Reportable 01/17/21 03:09 Schistocytes Not Reportable 01/17/21 03:09 Malaria parasites Not Reportable 01/17/21 03:09 Charanjit Bodies Not Reportable 01/17/21 03:09 Hem Pathologist Commnt No 01/17/21 03:09 PT 17.2 Sec. (12.2-14.9) H 01/17/21 00:17 INR 1.35 (0.87-1.13) H 01/17/21 00:17 APTT 32.6 Sec. (24.2-36.6) 01/17/21 00:17 Sodium 141 mmol/L (137-145) 01/17/21 03:09 Potassium 4.3 mmol/L (3.6-5.0) D 01/17/21 03:09 Chloride 106.5 mmol/L (98-107) 01/17/21 03:09 Carbon Dioxide 23 mmol/L (22-30) 01/17/21 03:09 Anion Gap 16 mmol/L 01/17/21 03:09 BUN 11 mg/dL (7-17) 01/17/21 03:09 Creatinine 1.5 mg/dL (0.6-1.2) H 01/17/21 03:09 Estimated GFR 40 ml/min 01/17/21 03:09 BUN/Creatinine Ratio 7 % 01/17/21 03:09 Glucose 157 mg/dL (65-100) H 01/17/21 03:09 POC Glucose 96 mg/dL (70-105) 01/17/21 13:34 Lactic Acid 1.90 mmol/L (0.7-2.0) 01/17/21 01:44 Calcium 11.7 mg/dL (8.4-10.2) H 01/17/21 03:09 Total Bilirubin 0.70 mg/dL (0.1-1.2) 01/17/21 00:17 Direct Bilirubin 0.4 mg/dL (0-0.2) H 01/17/21 00:17 Indirect Bilirubin 0.3 mg/dL 01/17/21 00:17 AST 29 units/L (5-40) 01/17/21 00:17 ALT 14 units/L (7-56) 01/17/21 00:17 Alkaline Phosphatase 111 units/L (35-129) 01/17/21 00:17 Ammonia 47.0 umol/L (25-60) 01/17/21 00:17 Total Creatine Kinase 35 units/L (30-135) 01/17/21 00:17 Troponin T 0.168 ng/mL (0.00-0.029) H* 01/17/21 00:17 Total Protein 8.3 g/dL (6.3-8.2) H 01/17/21 00:17 Albumin 3.3 g/dL (3.9-5) L 01/17/21 00:17 Albumin/Globulin Ratio 0.7 % 01/17/21 00:17 Triglycerides 152 mg/dL (2-149) H 01/17/21 00:17 Cholesterol 154 mg/dL (50-199) 01/17/21 00:17 LDL Cholesterol Direct 98 mg/dL (50-130) 01/17/21 00:17 HDL Cholesterol 36 mg/dL (40-59) L 01/17/21 00:17 Cholesterol/HDL Ratio 4.27 % 01/17/21 00:17 TSH 1.410 mlU/mL (0.270-4.200) 01/17/21 00:17 Urine Color Yellow (Yellow) 01/16/21 Unknown Urine Turbidity Cloudy (Clear) 01/16/21 Unknown Urine pH 7.0 (5.0-7.0) 01/16/21 Unknown Ur Specific [place] 1.005 (1.003-1.030) 01/16/21 Unknown Urine Protein 100 mg/dl mg/dL (Negative) 01/16/21 Unknown Urine Glucose (UA) Neg mg/dL (Negative) 01/16/21 Unknown Urine Ketones Neg mg/dL (Negative) 01/16/21 Unknown Urine Blood Lg (Negative) 01/16/21 Unknown Urine Nitrite Neg (Negative) 01/16/21 Unknown Ur Reducing Substances Not Reportable 01/16/21 Unknown Urine Bilirubin Neg (Negative) 01/16/21 Unknown Urine Ictotest Not Reportable 01/16/21 Unknown Urine Urobilinogen < 2.0 mg/dL (<2.0) 01/16/21 Unknown Ur Leukocyte Esterase Lg (Negative) 01/16/21 Unknown Urine WBC (Auto) 18.0 /HPF (0.0-6.0) H 01/16/21 Unknown Urine RBC (Auto) 16.0 /HPF (0.0-6.0) 01/16/21 Unknown U Epithel Cells (Auto) < 1.0 /HPF (0-13.0) 01/16/21 Unknown Urine Bacteria (Auto) 2+ /HPF (Negative) 01/16/21 Unknown Amorphous Crystals Few 01/16/21 Unknown Urine Mucus Few /HPF 01/16/21 Unknown Microbiology: Microbiology 01/17/21 00:17 Peripheral/Venous Blood Culture - Preliminary Culture in Progress 01/16/21 23:50 Peripheral/Venous Blood Culture - Preliminary Culture in Progress Active Medications - Current Medications Current Medications: Generic Name Dose Route Start Last Admin Trade Name Freq PRN Reason Stop Dose Admin Acetaminophen 650 mg 01/17/21 02:30 Acetaminophen 325 Mg Tab PO Q4H PRN Pain MILD(1-3)/Fever >100.5/EDWARDS Albuterol 2.5 mg 01/17/21 02:30 Albuterol 2.5 Mg/3 Ml Nebu IH Q4HRT PRN Shortness Of Breath Albuterol/Ipratropium 1 ampul 01/17/21 08:00 01/17/21 10:08 Ipratropium/Albuterol Sulfate 3 Ml Ampul.Neb IH 1 ampul Q6HRT GUME Administration Aspirin 81 mg 01/17/21 10:00 01/17/21 09:44 Aspirin Ec 81 Mg Tab PO 81 mg QDAY GUME Administration Atorvastatin Calcium 40 mg 01/17/21 22:00 Atorvastatin 40 Mg Tab PO QHS GUME Dextrose 50 ml 01/17/21 02:30 Dextrose 50% In Water (25gm) 50 Ml Syringe IV Q30MIN PRN Hypoglycemia Protocol Famotidine 20 mg 01/17/21 10:00 01/17/21 09:44 Famotidine 20 Mg/2 Ml Inj IV 20 mg DAILY GUME Administration Heparin Sodium (Porcine) 0 unit 01/17/21 11:40 Heparin 10,000 Units/10 Ml Vial IV Q6H PRN Anti-Xa Assay < 0.1 units/ml Protocol Diltiazem HCl 100 mg in 100 mls @ 5 mls/hr 01/17/21 01:00 Cardizem/D5w 100mg/100ml IV TITR GUME Protocol 5 MG/HR Sodium Chloride 1,000 mls @ 150 mls/hr 01/17/21 02:30 Nacl 0.9% 1000 Ml IV DIRECT GUME Levofloxacin/Dextrose 750 mg in 150 mls @ 100 mls/hr 01/18/21 10:00 Levaquin 750mg/150ml IV Q48H [facility] Protocol Insulin Human Regular 0 units 01/17/21 07:30 01/17/21 13:36 Insulin Regular, Human 100 Units/1 Ml SUB-Q Not Given ACHS [facility] Protocol Metoprolol Tartrate 25 mg 01/17/21 12:00 Metoprolol Tartrate 25 Mg Tab PO BID GUME Nitroglycerin 0.4 mg 01/17/21 02:30 Nitroglycerin 0.4 Mg Tab Subl SL Q5M PRN Chest Pain Ondansetron HCl 4 mg 01/17/21 02:30 Ondansetron 4 Mg/2 Ml Inj IV Q8H PRN Nausea And Vomiting Sodium Chloride 10 ml 01/17/21 10:00 01/17/21 13:25 Sodium Chloride 0.9% 10 Ml Flush Syringe IV 10 ml BID GUME Administration Sodium Chloride 10 ml 01/17/21 02:30 Sodium Chloride 0.9% 10 Ml Flush Syringe IV PRN PRN LINE FLUSH Sodium Phosphate 250 mg 01/17/21 10:00 K-Phos Neutral 250 Mg Tab PO QID GUME Tramadol HCl 50 mg 01/17/21 02:30 Tramadol 50 Mg Tab PO Q6H PRN Pain, Moderate (4-6)
[2021-01-17] MEDS ORDERED: HEPARIN/ 0.45% NACL DRIP 25,000 UNIT/500 ML BAG IV SCH (15:00)
[2021-01-17 16:08] LABS: Hematocrit 35.9 % (30.3-42.9); Hemoglobin 11.5 gm/dl (10.1-14.3)
[2021-01-17 16:33] LABS: INR 1.36 (0.87-1.13)
[2021-01-17 16:34] LABS: Partial Thromboplastin Time 32.6 Sec. (24.2-36.6)
[2021-01-18] MEDS: INSULIN REGULAR, HUMAN 100 UNITS/1 ML SUB-Q SCH ×4 (08:33→21:55)
[2021-01-18] MEDS: IPRATROPIUM/ALBUTEROL SULFATE 3 ML AMPUL.NEB IH SCH ×5 (08:50→21:10)
[2021-01-18] MEDS: FAMOTIDINE 20 MG/2 ML INJ IV SCH (09:07)
[2021-01-18] MEDS: METOPROLOL TARTRATE 25 MG TAB PO SCH ×2 (09:07→21:54)
[2021-01-18] MEDS: ASPIRIN EC 81 MG TAB PO SCH (09:08)
[2021-01-18] MEDS ORDERED: ASPIRIN 81 MG TAB CHEW PO SCH (10:00)
--- NOTE | 2021-01-18 12:15 | Progress Note ---
Assessment and Plan Echo pending. Cardiac enzymes noted to be trending up. Plan for LHC in AM. NPO after midnight. Discontinue heparin gtt in AM @ 0300. D/w RN. Ultimately awaiting Uro input regarding persistent renal stone. Will address OAC for PAF once all interventions are complete. Plan of care d/w pt's son via phone. Pt seen in conjunction with Dr. Stevenson, who agrees with the assessment and plan of care. - Patient Problems (1) Sepsis Current Visit: Yes Status: Acute (2) UTI (urinary tract infection) Current Visit: Yes Status: Acute (3) MONA (acute kidney injury) Current Visit: Yes Status: Acute (4) Non-STEMI (non-ST elevated myocardial infarction) Current Visit: Yes Status: Acute Plan to address problem: Type 2 (5) Paroxysmal A-fib Current Visit: Yes Status: Chronic (6) HTN (hypertension) Current Visit: Yes Status: Chronic Qualifiers: Hypertension type: primary hypertension Qualified Code(s): I10 - Essential (primary) hypertension (7) Diabetes Current Visit: Yes Status: Chronic Qualifiers: Diabetes mellitus type: type 2 Subjective Date of service: 01/18/21 Principal diagnosis: Sepsis/UTI Interval history: Resting comfortably in bed. States she is cold. Otherwise no cardiac complaints. Tele reviewed - SR w/PACs in the 70s. Objective Last Vital Signs Temp 98.1 F 01/18/21 08:06 Pulse 70 01/18/21 08:06 Resp 20 01/18/21 08:06 BP 147/87 01/18/21 08:06 Pulse Ox 98 01/18/21 08:06 - Physical Examination General: No Apparent Distress HEENT: Positive: EOMI, Normocephaly, Mucus Membranes Moist Neck: Positive: neck supple, trachea midline. Negative: JVD/HJR Cardiac: Positive: Reg Rate and Rhythm, S1/S2 Lungs: Positive: clear to auscultation Neuro: Positive: Grossly Intact Abdomen: Positive: Soft. Negative: Tender Skin: Negative: Rash Musculoskeletal: No Pain Extremities: Present: lower extr. pulses. Absent: edema - Labs and Meds Coagulation 01/17/21 Range/Units 15:30 PT 17.3 H (12.2-14.9) Sec. INR 1.36 H (0.87-1.13) APTT 32.6 (24.2-36.6) Sec. CBC 01/17/21 Range/Units 15:30 Hgb 11.5 (10.1-14.3) gm/dl Hct 35.9 (30.3-42.9) % Plt Count 164 (140-440) K/mm3 - Imaging and Cardiology EKG: report reviewed, image reviewed Echo: pending - Telemetry EKG Rhythm: Sinus Rhythm - EKG Sinus rhythms and dysrhythmias: sinus rhythm
--- NOTE | 2021-01-18 13:03 | Ultrasound Report ---
ULTRASOUND RENAL INDICATION / CLINICAL INFORMATION: hematuria. COMPARISON: CT dated 11/14/20 FINDINGS: RIGHT KIDNEY: Length = 10.9 cm. - Echogenicity: Mildly echogenic. - Cortical Thickness: Mild cortical thinning. - Hydronephrosis: Moderate hydroureteronephrosis. No obstructing stone demonstrated on the current st udy. Obstructing stone in the mid right ureter on prior CT. - Cyst / Mass: Small simple cysts. - Stones: Collection of echogenic stones in the lower pole as seen on prior CT. LEFT KIDNEY: Length = 11.4 cm. - Echogenicity: Mildly echogenic. - Cortical Thickness: Normal. - Hydronephrosis: None. - Cyst / Mass: Small simple cyst, unchanged. - Stones: None seen. URINARY BLADDER: No significant abnormality. FREE FLUID: None. ADDITIONAL FINDINGS: None. IMPRESSION: 1. Moderate right hydroureteronephrosis similar to that seen on prior CT. Mid right ureteral stone on prior CT not demonstrated on this study. 2. Right nephrolithiasis, unchanged. 3. Mild increased echogenicity and cortical thinning of the right kidney. Signer Name: Jennifer Castro MD Signed: 01/18/2021 12:59 PM Workstation Name: [id number]
[2021-01-18] MEDS: DEXTROSE 50% IN WATER (25GM) 50 ML SYRINGE IV PRN (14:19)
--- NOTE | 2021-01-18 15:37 | Progress Note ---
Assessment and Plan Assessment and plan: 81-year-old -[place] female who presented with A. fib RVR, and a UTI secondary to possible renal stone. Sepsis secondary to urinary tract infection Current Visit: Yes Status: Acute Plan to address problem: Fluid boluses Fluids Blood culture and urine culture pending Continue Levaquin antibiotics UTI (urinary tract infection) Current Visit: Yes Status: Acute Plan to address problem: Levaquin antibiotics Fluids Urine cultures Hematuria Likely secondary to from urinary tract infection Renal ultrasound with hydronephrosis Moderate hydronephrosis on right kidney Urology consulted CT of abdomen and pelvis pending Urology called and case discussed, they will see the patient on 01/19/2021 Atrial fibrillation with RVR Current Visit: Yes Status: Acute Plan to address problem: Aspirin Lipitor Patient spontaneously converted, Cardizem not given Cardiology consulted Echocardiogram pending Hypotension Current Visit: Yes Status: Acute Plan to address problem: Fluid bolus x1 L Continue fluids Hypotension resolved Diabetes mellitus type II Current Visit: Yes Status: Acute Plan to address problem: Insulin sliding scale Elevated troponin, most likely NSTEMI type II Current Visit: Yes Status: Acute Plan to address problem: Cardiology consulted Echocardiogram pending Low-dose heparin drip for now Cardiac catheterization scheduled for 01/19/2021 Hypercalcemia Current Visit: Yes Status: Acute Plan to address problem: Fluid bolus, continue fluids Generalized weakness Current Visit: No Status: Acute Plan to address problem: Continue fluids. Dietary supplements Moderate caloric/ malnutrition Dietary supplements DVT prophylaxis Current Visit: Yes Status: Acute Plan to address problem: Heparin 5000 units subcu every 8 hours for DVT prophylaxis. Pepcid 20 mg IV every 12 hours for GI prophylaxis. Patient is a full code CODE STATUS: Full DVT prophylaxis: Heparin Disposition: Cardiac catheterization in the morning, urology to see the patient for evaluation of possible renal stone, continue treatment for UTI. History Interval history: 01/17/2021: Patient seen and examined, no acute distress, states that she is hungry. Spoke with cardiology pertaining to patient's plan of care. 01/18/2021: Patient seen and examined, no complaints. Eating breakfast. Denies any chest pain or shortness of breath. Of note, there was a discrepancy with the patient's orders due to an account error. Patient did not get any heparin overnight because no orders were completed. Specifically called the ED on 01/17/2021 to have the accounts adjusted, it was never done. The overnight physician was also called due to this error and it was still not fixed. Patient did not have any meds or heparin during the morning. I spoke with back control and the nursing staff and the orders were finally completed. Hospitalist Physical - Physical exam Narrative exam: General appearance: no acute distress, thin EENT: PERRL, EOM intact, hearing intact, clear oral mucosa Neck: Present: supple, normal ROM Respiratory: Nasal cannula oxygen, bilateral CTA, negative: rales, rhonchi, wheezing Cardiovascular: Regular rate/rhythm, Normal S1 & S2. No gallop, rub Extremities: no ischemia, No edema, normal temperature, normal color, Full ROM Abdominal: soft, no tenderness, non-distended, normal bowel sounds Integumentary: Present: clear, warm, dry no wounds, no erythema noted Psychiatric: appropriate mood/affect, intact judgment & insight Neurologic: CNII-XII intact, moves all extremities, no sensory or motor abnorm alities - Constitutional Vitals: Temp Pulse Resp BP Pulse Ox 98.1 F 70 18 147/87 98 01/18/21 08:06 01/18/21 10:00 01/18/21 14:00 01/18/21 08:06 01/18/21 08:51 HEART Score - HEART Score Troponin: Troponin T 0.307 ng/mL (0.00-0.029) H* D 01/17/21 15:30 Results - Labs CBC & Chem 7: 01/17/21 15:30 01/17/21 03:09 Labs: Laboratory Last Values WBC 22.5 K/mm3 (4.5-11.0) H 01/17/21 03:09 RBC 4.35 M/mm3 (3.65-5.03) 01/17/21 03:09 Hgb 11.5 gm/dl (10.1-14.3) 01/17/21 15:30 Hct 35.9 % (30.3-42.9) 01/17/21 15:30 MCV 89 fl (79-97) 01/17/21 03:09 MCH 28 pg (28-32) 01/17/21 03:09 MCHC 32 % (30-34) 01/17/21 03:09 RDW 16.9 % (13.2-15.2) H 01/17/21 03:09 Plt Count 164 K/mm3 (140-440) 01/17/21 15:30 Add Manual Diff Complete 01/17/21 03:09 Total Counted 200 01/17/21 03:09 Seg Neutrophils % Software Licensing Executive 01/17/21 03:09 Seg Neuts % (Manual) 97.0 % (40.0-70.0) H 01/17/21 03:09 Band Neutrophils % 1.5 % 01/17/21 00:17 Lymphocytes % (Manual) 3.0 % (13.4-35.0) L 01/17/21 03:09 Monocytes % (Manual) 1.5 % (0.0-7.3) 01/17/21 00:17 Nucleated RBC % Not Reportable 01/17/21 03:09 Seg Neutrophils # Man 21.8 K/mm3 (1.8-7.7) H 01/17/21 03:09 Band Neutrophils # 0.0 K/mm3 01/17/21 03:09 Lymphocytes # (Manual) 0.7 K/mm3 (1.2-5.4) L 01/17/21 03:09 Abs React Lymphs (Man) 0.0 K/mm3 01/17/21 03:09 Monocytes # (Manual) 0.0 K/mm3 (0.0-0.8) 01/17/21 03:09 Eosinophils # (Manual) 0.0 K/mm3 (0.0-0.4) 01/17/21 03:09 Basophils # (Manual) 0.0 K/mm3 (0.0-0.1) 01/17/21 03:09 Metamyelocytes # 0.0 K/mm3 01/17/21 03:09 Myelocytes # 0.0 K/mm3 01/17/21 03:09 Promyelocytes # 0.0 K/mm3 01/17/21 03:09 Blast Cells # 0.0 K/mm3 01/17/21 03:09 WBC Morphology Not Reportable 01/17/21 03:09 Hypersegmented Neuts Not Reportable 01/17/21 03:09 Hyposegmented Neuts Not Reportable 01/17/21 03:09 Hypogranular Neuts Not Reportable 01/17/21 03:09 Smudge Cells Not Reportable 01/17/21 03:09 Toxic Granulation Not Reportable 01/17/21 03:09 Toxic Vacuolation Not Reportable 01/17/21 03:09 Dohle Bodies Not Reportable 01/17/21 03:09 Pelger-Huet Anomaly Not Reportable 01/17/21 03:09 Allan Rods Not Reportable 01/17/21 03:09 Platelet Estimate Consistent w auto 01/17/21 03:09 Clumped Platelets Not Reportable 01/17/21 03:09 Plt Clumps, EDTA Not Reportable 01/17/21 03:09 Large Platelets Not Reportable 01/17/21 03:09 Giant Platelets Not Reportable 01/17/21 03:09 Platelet Satelliting Not Reportable 01/17/21 03:09 Plt Morphology Comment Not Reportable 01/17/21 03:09 RBC Morphology Not Reportable 01/17/21 03:09 Dimorphic RBCs Not Reportable 01/17/21 03:09 Polychromasia Not Reportable 01/17/21 03:09 Hypochromasia Not Reportable 01/17/21 03:09 Poikilocytosis Not Reportable 01/17/21 03:09 Anisocytosis 1+ 01/17/21 03:09 Microcytosis Not Reportable 01/17/21 03:09 Macrocytosis Not Reportable 01/17/21 03:09 Spherocytes Not Reportable 01/17/21 03:09 Pappenheimer Bodies Not Reportable 01/17/21 03:09 Sickle Cells Not Reportable 01/17/21 03:09 Target Cells Not Reportable 01/17/21 03:09 Tear Drop Cells Not Reportable 01/17/21 03:09 Ovalocytes Not Reportable 01/17/21 03:09 Helmet Cells Not Reportable 01/17/21 03:09 [place] Bodies Not Reportable 01/17/21 03:09 S[place]to Rings Not Reportable 01/17/21 03:09 Cassius Cells Not Reportable 01/17/21 03:09 Bite Cells Not Reportable 01/17/21 03:09 Crenated Cell Not Reportable 01/17/21 03:09 Elliptocytes Not Reportable 01/17/21 03:09 Acanthocytes (Spur) Not Reportable 01/17/21 03:09 Rouleaux Not Reportable 01/17/21 03:09 Hemoglobin C Crystals Not Reportable 01/17/21 03:09 Schistocytes Not Reportable 01/17/21 03:09 Malaria parasites Not Reportable 01/17/21 03:09 Charanjit Bodies Not Reportable 01/17/21 03:09 Hem Pathologist Commnt No 01/17/21 03:09 PT 17.3 Sec. (12.2-14.9) H 01/17/21 15:30 INR 1.36 (0.87-1.13) H 01/17/21 15:30 APTT 32.6 Sec. (24.2-36.6) 01/17/21 15:30 Sodium 141 mmol/L (137-145) 01/17/21 03:09 Potassium 4.3 mmol/L (3.6-5.0) D 01/17/21 03:09 Chloride 106.5 mmol/L (98-107) 01/17/21 03:09 Carbon Dioxide 23 mmol/L (22-30) 01/17/21 03:09 Anion Gap 16 mmol/L 01/17/21 03:09 BUN 11 mg/dL (7-17) 01/17/21 03:09 Creatinine 1.5 mg/dL (0.6-1.2) H 01/17/21 03:09 Estimated GFR 40 ml/min 01/17/21 03:09 BUN/Creatinine Ratio 7 % 01/17/21 03:09 Glucose 157 mg/dL (65-100) H 01/17/21 03:09 POC Glucose 43 mg/dL (70-105) L 01/18/21 14:17 Lactic Acid 1.90 mmol/L (0.7-2.0) 01/17/21 01:44 Calcium 11.7 mg/dL (8.4-10.2) H 01/17/21 03:09 Total Bilirubin 0.70 mg/dL (0.1-1.2) 01/17/21 00:17 Direct Bilirubin 0.4 mg/dL (0-0.2) H 01/17/21 00:17 Indirect Bilirubin 0.3 mg/dL 01/17/21 00:17 AST 29 units/L (5-40) 01/17/21 00:17 ALT 14 units/L (7-56) 01/17/21 00:17 Alkaline Phosphatase 111 units/L (35-129) 01/17/21 00:17 Ammonia 47.0 umol/L (25-60) 01/17/21 00:17 Total Creatine Kinase 35 units/L (30-135) 01/17/21 00:17 Troponin T 0.307 ng/mL (0.00-0.029) H* D 01/17/21 15:30 Total Protein 8.3 g/dL (6.3-8.2) H 01/17/21 00:17 Albumin 3.3 g/dL (3.9-5) L 01/17/21 00:17 Albumin/Globulin Ratio 0.7 % 01/17/21 00:17 Triglycerides 152 mg/dL (2-149) H 01/17/21 00:17 Cholesterol 154 mg/dL (50-199) 01/17/21 00:17 LDL Cholesterol Direct 98 mg/dL (50-130) 01/17/21 00:17 HDL Cholesterol 36 mg/dL (40-59) L 01/17/21 00:17 Cholesterol/HDL Ratio 4.27 % 01/17/21 00:17 TSH 1.410 mlU/mL (0.270-4.200) 01/17/21 00:17 Urine Color Yellow (Yellow) 01/16/21 Unknown Urine Turbidity Cloudy (Clear) 01/16/21 Unknown Urine pH 7.0 (5.0-7.0) 01/16/21 Unknown Ur Specific [place] 1.005 (1.003-1.030) 01/16/21 Unknown Urine Protein 100 mg/dl mg/dL (Negative) 01/16/21 Unknown Urine Glucose (UA) Neg mg/dL (Negative) 01/16/21 Unknown Urine Ketones Neg mg/dL (Negative) 01/16/21 Unknown Urine Blood Lg (Negative) 01/16/21 Unknown Urine Nitrite Neg (Negative) 01/16/21 Unknown Ur Reducing Substances Not Reportable 01/16/21 Unknown Urine Bilirubin Neg (Negative) 01/16/21 Unknown Urine Ictotest Not Reportable 01/16/21 Unknown Urine Urobilinogen < 2.0 mg/dL (<2.0) 01/16/21 Unknown Ur Leukocyte Esterase Lg (Negative) 01/16/21 Unknown Urine WBC (Auto) 18.0 /HPF (0.0-6.0) H 01/16/21 Unknown Urine RBC (Auto) 16.0 /HPF (0.0-6.0) 01/16/21 Unknown U Epithel Cells (Auto) < 1.0 /HPF (0-13.0) 01/16/21 Unknown Urine Bacteria (Auto) 2+ /HPF (Negative) 01/16/21 Unknown Amorphous Crystals Few 01/16/21 Unknown Urine Mucus Few /HPF 01/16/21 Unknown Microbiology: Microbiology 01/16/21 Unknown Urine,Clean Catch Urine Culture - Preliminary 01/17/21 00:17 Peripheral/Venous Blood Culture - Preliminary NO GROWTH AFTER 24 HOURS 01/16/21 23:50 Peripheral/Venous Blood Culture - Preliminary NO GROWTH AFTER 24 HOURS Multani/IV: Voiding Method Nephrostomy (Right) Active Medications - Current Medications Current Medications: Generic Name Dose Route Start Last Admin Trade Name Freq PRN Reason Stop Dose Admin Acetaminophen 650 mg 01/17/21 02:30 Acetaminophen 325 Mg Tab PO Q4H PRN Pain MILD(1-3)/Fever >100.5/EDWARDS Albuterol 2.5 mg 01/17/21 02:30 Albuterol 2.5 Mg/3 Ml Nebu IH Q4HRT PRN Shortness Of Breath Albuterol/Ipratropium 1 ampul 01/17/21 08:00 01/18/21 15:14 Ipratropium/Albuterol Sulfate 3 Ml Ampul.Neb IH Not Given Q6HRT GUME Aspirin 81 mg 01/17/21 10:00 01/18/21 09:08 Aspirin Ec 81 Mg Tab PO 81 mg QDAY GUME Administration Atorvastatin Calcium 40 mg 01/17/21 22:00 Atorvastatin 40 Mg Tab PO QHS GUME Dextrose 50 ml 01/17/21 02:30 01/18/21 14:19 Dextrose 50% In Water (25gm) 50 Ml Syringe IV 50 ml Q30MIN PRN Administration Hypoglycemia Protocol Famotidine 20 mg 01/17/21 10:00 01/18/21 09:07 Famotidine 20 Mg/2 Ml Inj IV 20 mg DAILY GUME Administration Heparin Sodium (Porcine) 0 unit 01/17/21 11:40 Heparin 10,000 Units/10 Ml Vial IV Q6H PRN Anti-Xa Assay < 0.1 units/ml Protocol Sodium Chloride 1,000 mls @ 150 mls/hr 01/17/21 02:30 Nacl 0.9% 1000 Ml IV DIRECT GUME Levofloxacin/Dextrose 750 mg in 150 mls @ 100 mls/hr 01/18/21 10:00 01/18/21 09:06 Levaquin 750mg/150ml IV 100 mls/hr Q48H GUME Administration Protocol Heparin Sodium/Sodium Chloride 25,000 unit in 500 mls @ 18 mls/hr 01/17/21 15:00 01/18/21 10:26 Heparin/ 0.45% Nacl-25,000 Unit/500 Ml IV 01/19/21 03:00 900 units/hr TITRATE GUME 18 mls/hr Administration Protocol 900 UNITS/HR Insulin Human Regular 0 units 01/17/21 07:30 01/18/21 14:33 Insulin Regular, Human 100 Units/1 Ml SUB-Q Not Given ACHS GUME Protocol Metoprolol Tartrate 25 mg 01/17/21 12:00 01/18/21 09:07 Metoprolol Tartrate 25 Mg Tab PO 25 mg BID GUME Administration Nitroglycerin 0.4 mg 01/17/21 02:30 Nitroglycerin 0.4 Mg Tab Subl SL Q5M PRN Chest Pain Ondansetron HCl 4 mg 01/17/21 02:30 Ondansetron 4 Mg/2 Ml Inj IV Q8H PRN Nausea And Vomiting Sodium Chloride 10 ml 01/17/21 10:00 01/18/21 09:08 Sodium Chloride 0.9% 10 Ml Flush Syringe IV 10 ml BID GUME Administration Sodium Chloride 10 ml 01/17/21 02:30 Sodium Chloride 0.9% 10 Ml Flush Syringe IV PRN PRN LINE FLUSH Tramadol HCl 50 mg 01/17/21 02:30 Tramadol 50 Mg Tab PO Q6H PRN Pain, Moderate (4-6) Nutrition/Malnutrition Assess - Dietary Evaluation Nutrition/Malnutrition Findings: Nutrition Notes Start: 01/18/21 07:55 Freq: Status: Active Protocol: Document 01/18/21 07:55 (Rec: 01/18/21 07:56 [id number]) Nutrition Notes Need for Assessment generated from: MD Order Initial or Follow up Brief Note Current Diagnosis Diabetes Other Pertinent Diagnosis UTI, Sepsis, a fib, hypotension Current Diet Cardiac Subjective/Other Information MD consult for diet education. Pt on hold in ED. Nutrition Intervention Follow-Up By: 01/19/21 Additional Comments FU for diet education needs
[2021-01-18 17:23] LABS: BUN/Creatinine Ratio 11; Blood Urea Nitrogen 10 mg/dL (7-17); Calcium 10.5 mg/dL (8.4-10.2); Hemolysis Index 29
[2021-01-18 17:28] LABS: Hematocrit 38.5 % (30.3-42.9); Hemoglobin 12.2 gm/dl (10.1-14.3); Mean Corpuscular HGB Conc 32 % (30-34); Mean Corpuscular Volume 88 fl (79-97); Platelet Count 149 K/mm3 (140-440); Red Blood Count 4.36 M/mm3 (3.65-5.03); Red Cell Distribution Width 17.5 % (13.2-15.2)
--- NOTE | 2021-01-18 17:32 | Cat Scan Report ---
CT ABDOMEN AND PELVIS WITHOUT CONTRAST INDICATION / CLINICAL INFORMATION: eval for renal stone. TECHNIQUE: Axial CT images were obtained through the abdomen and pelvis without IV contrast. All CT scans at this location are performed using CT dose reduction for ALARA by means of automated exposure control. COMPARISON: CT dated 11/14/20 FINDINGS: LOWER CHEST: No significant abnormality. LIVER: No significant abnormality. GALLBLADDER: Cholecystectomy. BILE DUCTS: Pneumobilia has decreased. No biliary ductal dilatation or retained stones. PANCREAS: No significant abnormality. SPLEEN: No significant abnormality. ADRENALS: No significant abnormality. RIGHT KIDNEY / URETER: Interval placement of right nephrostomy tube in expected position. 1. Resolution of right hydronephrosis. No change in obstructing 15 mm stone in the proximal right ure ter. Nonobstructing stones in the lower pole of the right kidney are unchanged. LEFT KIDNEY / URETER: No significant abnormality. STOMACH / SMALL BOWEL: No significant abnormality. COLON: Diverticulosis without acute inflammation. APPENDIX: No significant abnormality. PERITONEUM: No free fluid. No free air. No fluid collection. LYMPH NODES: No significant adenopathy. AORTA / ARTERIES: Moderate atherosclerotic calcification without acute abnormality. IVC / VEINS: No significant abnormality. URINARY BLADDER: No significant abnormality. REPRODUCTIVE ORGANS: No acute abnormality. Calcified uterine fibroids are unchanged. ADDITIONAL FINDINGS: None. SKELETAL SYSTEM: No significant abnormality. IMPRESSION: 1. No change in 15 mm stone in the proximal to mid right ureter. 2. Interval placement of right nephrostomy tube with improvement in right hydronephrosis. 3. Right nephrolithiasis in the lower pole is unchanged. Signer Name: Jennifer Castro MD Signed: 01/18/2021 5:27 PM Workstation Name: [id number]
[2021-01-19] MEDS: IPRATROPIUM/ALBUTEROL SULFATE 3 ML AMPUL.NEB IH SCH (03:14)
[2021-01-19 05:11] LABS: Hematocrit 33.8 % (30.3-42.9)
[2021-01-19 05:20] LABS: INR 1.27 (0.87-1.13)
[2021-01-19 05:48] LABS: BUN/Creatinine Ratio 9; Blood Urea Nitrogen 7 mg/dL (7-17); Calcium 10.9 mg/dL (8.4-10.2); Hemolysis Index 53
[2021-01-19] MEDS: ASPIRIN EC 81 MG TAB PO SCH ×2 (08:26→12:51)
[2021-01-19] MEDS: METOPROLOL TARTRATE 25 MG TAB PO SCH ×3 (08:26→21:28)
[2021-01-19] MEDS: INSULIN REGULAR, HUMAN 100 UNITS/1 ML SUB-Q SCH ×4 (08:27→21:28)
--- NOTE | 2021-01-19 11:06 | Progress Note ---
Assessment and Plan NSTEMI suspect type II * Patient is currently chest pain-free with no cardiac complaints. Troponin is elevated x3 trending downwards. Continue to trend CE's * Echocardiogram reviewed (01/17/2021): LVEF is 50 to 55%. LV SF is normal. Mild diastolic dysfunction. RV SF is normal. RA mildly dilated. Mild MR. Mild TR RVSP is 37 mmHg. * LHC planned for tomorrow a.m. Delayed due to patient volume in quality lab assoc. N.p.o. after midnight. Restart heparin gtt. standard intensity protocol. Discontinue heparin at approximately 5 AM, 4 hours prior to cardiac cath procedure. Paroxysmal A. fib * Review of telemetry shows sinus bradycardia 55 with no episodes of A. fib in last 24 hours LHC in am. NPO after midnight. will follow This patient was seen in conjunction with Dr Ji who agrees with this assessment and plan of care - Patient Problems (1) Sepsis Current Visit: Yes Status: Acute (2) UTI (urinary tract infection) Current Visit: Yes Status: Acute (3) MONA (acute kidney injury) Current Visit: Yes Status: Acute (4) Non-STEMI (non-ST elevated myocardial infarction) Current Visit: Yes Status: Acute Plan to address problem: Type 2 (5) Paroxysmal A-fib Current Visit: Yes Status: Chronic (6) HTN (hypertension) Current Visit: Yes Status: Chronic Qualifiers: Hypertension type: primary hypertension Qualified Code(s): I10 - Essential (primary) hypertension (7) Diabetes Current Visit: Yes Status: Chronic Qualifiers: Diabetes mellitus type: type 2 Subjective Date of service: 01/19/21 Principal diagnosis: Sepsis/UTI Interval history: Patient resting comfortably in bed. No shortness of breath or chest pain overnight. Telemetry reviewed: Sinus bradycardia 55. No events Objective Last Vital Signs Temp 97 F L 01/19/21 08:25 Pulse 69 01/19/21 08:36 Resp 18 01/19/21 04:42 BP 145/87 01/19/21 08:36 Pulse Ox 99 01/19/21 08:48 - Physical Examination General: No Apparent Distress HEENT: Positive: EOMI, Normocephaly, Mucus Membranes Moist Neck: Positive: neck supple, trachea midline. Negative: JVD/HJR Cardiac: Positive: Reg Rate and Rhythm Lungs: Positive: clear to auscultation, Normal Breath Sounds Neuro: Positive: Grossly Intact Abdomen: Positive: Soft. Negative: Tender Skin: Negative: Rash Incision: Cardiac Cath Site Musculoskeletal: No Pain Extremities: Present: lower extr. pulses. Absent: edema - Labs and Meds Coagulation 01/19/21 Range/Units 04:41 PT 16.4 H (12.2-14.9) Sec. INR 1.27 H (0.87-1.13) CBC 01/18/21 01/19/21 Range/Units 16:39 04:41 WBC 11.5 H (4.5-11.0) K/mm3 RBC 4.36 (3.65-5.03) M/mm3 Hgb 12.2 11.0 (10.1-14.3) gm/dl Hct 38.5 33.8 (30.3-42.9) % Plt Count 149 169 (140-440) K/mm3 Comprehensive Metabolic Panel 01/18/21 01/19/21 Range/Units 16:39 04:41 Sodium 140 141 (137-145) mmol/L Potassium 3.6 3.9 (3.6-5.0) mmol/L Chloride 107.2 H 106.5 (98-107) mmol/L Carbon Dioxide 19 L 25 (22-30) mmol/L BUN 10 7 (7-17) mg/dL Creatinine 0.9 0.8 (0.6-1.2) mg/dL Glucose 65 92 (65-100) mg/dL Calcium 10.5 H 10.9 H (8.4-10.2) mg/dL - Imaging and Cardiology EKG: report reviewed, image reviewed Echo: report reviewed (Echocardiogram reviewed (01/17/2021): LVEF is 50 to 55%. LV SF is normal. Mild diastolic dysfunction. RV SF is normal. RA mildly dilated. Mild MR. Mild TR RVSP is 37 mmHg.) - Telemetry EKG Rhythm: Sinus Bradycardia - EKG Sinus rhythms and dysrhythmias: sinus rhythm
[2021-01-19] MEDS: FAMOTIDINE 20 MG/2 ML INJ IV SCH (12:50)
[2021-01-19] MEDS ORDERED: HEPARIN 10,000 UNITS/10 ML VIAL IV PRN (16:07)
--- NOTE | 2021-01-19 16:20 | Progress Note ---
Assessment and Plan 81-year-old -Turk[place] female who presented with A. fib RVR, and a UTI secondary to possible renal stone. --Sepsis secondary to urinary tract infection Fluid boluses Fluids Blood culture and urine culture pending Continue Levaquin antibiotics --UTI (urinary tract infection) Levaquin antibiotics Fluids Urine cultures Hematuria, resolved Likely secondary to from urinary tract infection and right kidney stone Renal ultrasound with hydronephrosis, H&H stable Moderate hydronephrosis on right kidney with 15 mm mid ureteric stone Urology consulted CT of abdomen and pelvis showed 15 mm right ureteric stone with PCN tube in place Urology called and case discussed, they will see the patient today --Atrial fibrillation with RVR Aspirin Lipitor Patient spontaneously converted, Cardizem not given Cardiology consulted Echocardiogram pending --Hypotension s/p Fluid bolus x1 L --Diabetes mellitus type II cont Insulin sliding scale Elevated troponin, most likely NSTEMI type II Cardiology consulted Echocardiogram showed preserved EF Low-dose heparin drip for now Cardiac catheterization scheduled for tomorrow --Hypercalcemia cont iv fluid --Generalized weakness Dietary supplements, PT --Moderate caloric/ malnutrition Dietary supplements --DVT prophylaxis pt on heparin drip. Pepcid 20 mg IV every 12 hours for GI prophylaxis. Patient is a full code CODE STATUS: Full DVT prophylaxis: Heparin Disposition: Cardiac catheterization tomorrow, urology to see the patient for evaluation of possible renal stone, continue treatment for UTI. Daily clinical course: 01/17/2021: Patient seen and examined, no acute distress, states that she is hungry. Spoke with cardiology pertaining to patient's plan of care. 01/18/2021: Patient seen and examined, no complaints. Eating breakfast. Denies any chest pain or shortness of breath. Of note, there was a discrepancy with the patient's orders due to an account error. Patient did not get any heparin overnight because no orders were completed. Specifically called the ED on 01/17/2021 to have the accounts adjusted, it was never done. The overnight physician was also called due to this error and it was still not fixed. Patient did not have any meds or heparin during the morning. I spoke with back control and the nursing staff and the orders were finally completed. 01/19/21: Patient feeling better. waiting on urology recommendation. restarted heparin drip, planned for cardiac cath tomorrow am Subjective Date of service: 01/19/21 Principal diagnosis: Sepsis/UTI Interval history: Patient seen and examined. Medical records and medication list reviewed. No acute event overnight noted by the RN. Patient denies any chest pain or difficulty breathing. Patient is tolerating diet. Plan for cardiac cath tomorrow Discussed plan of care at bedside with patient. Objective - Exam Narrative Exam: GENERAL: Elderly -Turkmen female lying on bed appeared to be in no discomfort. HEENT: Normocephalic. Atraumatic. No conjunctival congestion or icterus. Patient has moist mucous membranes. NECK: Supple. Trachea midline. CHEST/LUNGS: Clear to auscultated bilaterally, breathing nonlabored. No wheezes crackles or rhonchi. HEART/CARDIOVASCULAR: Regular in rate and rhythm. S1 and S2 positive. ABDOMEN: Abdomen is soft, nontender. Patient has normal bowel sounds. Right nephrostomy tube in place SKIN: There is no rash. Warm and dry. NEURO: No focal motor deficit. Follows command. MUSCULOSKELETAL: No joint effusion or tenderness. EXTRIMITY: No edema, no cyanosis or clubbing. PSYCH: Cooperative. - Constitutional Vitals: Vital Signs - 12hr 01/19/21 01/19/21 01/19/21 04:42 08:16 08:17 Temperature 97.4 F L Pulse Rate 65 69 Respiratory 18 Rate Blood Pressure 141/87 145/87 O2 Sat by Pulse 98 99 Oximetry 01/19/21 01/19/21 01/19/21 08:25 08:26 08:36 Temperature 97 F L Pulse Rate 69 69 Respiratory Rate Blood Pressure 145/87 145/87 O2 Sat by Pulse Oximetry 01/19/21 01/19/21 01/19/21 08:48 10:00 12:38 Temperature 97.6 F Pulse Rate 68 67 Respiratory 22 Rate Blood Pressure 139/78 O2 Sat by Pulse 99 100 Oximetry - Labs CBC & Chem 7: 01/20/21 00:55 01/20/21 00:55 Labs: Abnormal lab results 01/18/21 01/18/21 01/18/21 Range/Units 16:39 16:39 16:39 WBC 11.5 H (4.5-11.0) K/mm3 RDW 17.5 H (13.2-15.2) % PT (12.2-14.9) Sec. INR (0.87-1.13) Heparin Anti-Xa Level (0.3-0.7) U.I./ml Chloride 107.2 H (98-107) mmol/L Carbon Dioxide 19 L (22-30) mmol/L POC Glucose (70-105) mg/dL Calcium 10.5 H (8.4-10.2) mg/dL Troponin T 0.216 H* D (0.00-0.029) ng/mL 01/18/21 01/19/21 01/19/21 Range/Units 21:36 04:41 04:41 WBC (4.5-11.0) K/mm3 RDW (13.2-15.2) % PT 16.4 H (12.2-14.9) Sec. INR 1.27 H (0.87-1.13) Heparin Anti-Xa Level < 0.10 L (0.3-0.7) U.I./ml Chloride (98-107) mmol/L Carbon Dioxide (22-30) mmol/L POC Glucose 62 L (70-105) mg/dL Calcium 10.9 H (8.4-10.2) mg/dL Troponin T (0.00-0.029) ng/mL HEART Score - HEART Score Troponin: Troponin T 0.216 ng/mL (0.00-0.029) H* D 01/18/21 16:39
[2021-01-19] MEDS ORDERED: HEPARIN/ 0.45% NACL DRIP 25,000 UNIT/500 ML BAG IV SCH (17:00)
[2021-01-19] MEDS ORDERED: HEPARIN 10,000 UNITS/10 ML VIAL IV ONE (17:07)
[2021-01-20] MEDS ORDERED: HEPARIN 1,000 UNIT/1 ML VIAL IV ONE (02:27)
[2021-01-20 04:07] LABS: Hematocrit 37.2 % (30.3-42.9); Hemoglobin 11.9 gm/dl (10.1-14.3); Mean Corpuscular HGB Conc 32 % (30-34); Mean Corpuscular Volume 87 fl (79-97); Platelet Count 181 K/mm3 (140-440); Red Blood Count 4.27 M/mm3 (3.65-5.03); Red Cell Distribution Width 17.4 % (13.2-15.2)
[2021-01-20 04:20] LABS: INR 1.09 (0.87-1.13)
[2021-01-20 04:30] LABS: BUN/Creatinine Ratio 9; Blood Urea Nitrogen 7 mg/dL (7-17); Calcium 10.1 mg/dL (8.4-10.2); Hemolysis Index 6
[2021-01-20] MEDS: INSULIN REGULAR, HUMAN 100 UNITS/1 ML SUB-Q SCH ×4 (07:44→23:12)
[2021-01-20] MEDS ORDERED: SODIUM CHLORIDE 0.9% 500 ML 500 ML ONE (08:54)
[2021-01-20] MEDS ORDERED: ASPIRIN EC 325 MG TAB PO ONE (08:58)
[2021-01-20] MEDS ORDERED: ASPIRIN 325 MG TAB PO SCH (09:00)
[2021-01-20] MEDS ORDERED: SODIUM CHLORIDE 0.9% 500 ML 500 ML IV SCH (09:00)
[2021-01-20] MEDS ORDERED: HEPARIN 10,000 UNITS/10 ML VIAL ONE (09:51)
[2021-01-20] MEDS ORDERED: HEPARIN/NS 5000 UNIT/500ML 1,000 ML IR ONE (09:51)
[2021-01-20] MEDS ORDERED: VERAPAMIL 5 MG/2 ML INJ ONE (09:52)
[2021-01-20] MEDS ORDERED: NITROGLYCERIN SYRINGE 0 ML ONE (09:52)
[2021-01-20] MEDS: MIDAZOLAM 2 MG/2 ML INJ ONE ×3 (10:43→10:57)
[2021-01-20] MEDS: LIDOCAINE (2%) 20 MG/1 ML VIAL 20 ML MDV INFILTRATI ONE ×2 (10:43→10:45)
[2021-01-20] MEDS: fentaNYL 100 MCG/2 ML INJ ONE ×3 (10:43→10:57)
--- NOTE | 2021-01-20 11:39 | Cardiac Catherization Report ---
DATE OF SERVICE: 01/20/2021 INDICATIONS: An 81-year-old female with history of hypertension, diabetes mellitus, underlying dementia, was noted to have elevated troponin levels, which are significant, because of this, the patient is scheduled for cardiac catheterization for definitive diagnosis and treatment. Discussed with the patient's son, who is agreeable with the procedure. He is aware of the procedure, potential complications, and alternatives of therapy available. DESCRIPTION OF PROCEDURE: The patient was brought to the catheterization laboratory in a fasting condition. Initially, right wrist area was attempted and able to be accessed the artery; however, could not advance the sheath with no blood flow. Hence, obtaining the access through this radial site was aborted and femoral area was prepared and local anesthesia was given. Right femoral artery puncture was made using 5-Maldivian micropuncture needle. It is to be noted the patient was evaluated prior to the procedure for moderate sedation and was felt to be an appropriate candidate for moderate sedation and received IV Versed and fentanyl as per the protocol. Using a 5-Maldivian multipurpose catheter, left ventriculogram was performed in KELLEY projection, followed by injections of the left coronary artery using a JL 3.5 and injections of the right coronary artery using JR 3.5 catheter. At the end of the procedure, catheter and sheath were removed. Manual pressure was applied in the right groin. The patient tolerated the procedure well. At the end of the procedure, the patient is breathing normally with no focal deficits and communicating normally. No side effects from moderate sedation was noted. The patient was monitored throughout the procedure with pulse oximetry and EKG monitoring. The patient's moderate sedation started at 10:43 a.m. and ended at 11:06 a.m. The patient was transferred to the room in stable condition. FINDINGS: Following findings were noted. 1. Hemodynamics: Opening aortic pressure 160/81. Left ventricular pressure 154/13. No gradient across the aortic valve. Estimated ejection fraction 55%. 2. Left ventriculogram done in KELLEY projection showed normal-sized left ventricle with normal contractility. Mitral regurgitation could not be evaluated because of limited amount of dye injected. Ejection fraction was felt to be around 55%. 3. Right coronary artery dominant vessel, shows mild ectasia in the proximal part with a very mild diffuse irregularities. No obstructive lesions noted. Similarly, left coronary system shows left main is short without significant disease. LAD showed mild ectasia in the proximal one-third with mild smooth irregularities distally. Similarly, circumflex artery showed mild ectasia in the proximal and mid part with no significant lesion distally. FINAL IMPRESSION: Normal-sized left ventricle with normal contractility and normal end-diastolic pressure. No significant coronary artery disease noted with areas of mild diffuse ectasia noted in all the arteries with mild irregularities. The patient tolerated the procedure well. Good hemostasis was achieved in the right radial artery using pressure bandage and similarly, manual pressure was applied in the right femoral artery. The patient was transferred to the room in stable condition. Findings were explained to the patient. The patient will be continued on risk factor modification and medical therapy. At this time, no significant obstructive lesions noted. TID: [id number] RECEIPT: [id number] XOCHILT/EJ GUADALUPE
--- NOTE | 2021-01-20 11:44 | Progress Note ---
Assessment and Plan NSTEMI suspect type II * Patient is currently chest pain-free with no cardiac complaints. Troponin is elevated x3 trending downwards. Continue to trend CE's * Echocardiogram reviewed (01/17/2021): LVEF is 50 to 55%. LV SF is normal. Mild diastolic dysfunction. RV SF is normal. RA mildly dilated. Mild MR. Mild TR RVSP is 37 mmHg. * [facility] (01/20/2021): Nonobstructive mild global coronary artery disease Paroxysmal A. fib * Review of telemetry shows sinus bradycardia 56 with no episodes of A. fib in last 48 hours. Continue to monitor on telemetry Patient currently stable cardiac status. Anticipate discharge in a.m. will follow Patient should follow-up with Dr Stevenson, [facility] heart specialists at our [place] location on 02/08/2021 at 1 PM. #[id number] This patient was seen in conjunction with Dr Ji who agrees with this assessment and plan of care - Patient Problems (1) Sepsis Current Visit: Yes Status: Acute (2) UTI (urinary tract infection) Current Visit: Yes Status: Acute (3) MONA (acute kidney injury) Current Visit: Yes Status: Acute (4) Non-STEMI (non-ST elevated myocardial infarction) Current Visit: Yes Status: Acute Plan to address problem: Type 2 (5) Paroxysmal A-fib Current Visit: Yes Status: Chronic (6) HTN (hypertension) Current Visit: Yes Status: Chronic Qualifiers: Hypertension type: primary hypertension Qualified Code(s): I10 - Essential (primary) hypertension (7) Diabetes Current Visit: Yes Status: Chronic Qualifiers: Diabetes mellitus type: type 2 Subjective Date of service: 01/20/21 Principal diagnosis: Sepsis/UTI Interval history: Patient resting comfortably in bed. No chest pain or shortness of breath overnight Telemetry reviewed: Sinus bradycardia 56. No events Objective Last Vital Signs Temp 98.0 F 01/20/21 07:32 Pulse 65 01/20/21 07:32 Resp 18 01/20/21 08:00 BP 134/63 01/20/21 07:32 Pulse Ox 94 01/20/21 07:32 - Physical Examination General: No Apparent Distress HEENT: Positive: EOMI, Normocephaly, Mucus Membranes Moist Neck: Positive: neck supple, trachea midline. Negative: JVD/HJR Cardiac: Positive: Regular Rhythm, S1/S2 Lungs: Positive: Normal Exam, Normal Breath Sounds Neuro: Positive: Grossly Intact Abdomen: Positive: Soft. Negative: Tender Skin: Negative: Rash Incision: Cardiac Cath Site (Right groin cath site Telfa Tegaderm in place no bleeding or hematoma noted) Musculoskeletal: No Pain Extremities: Present: lower extr. pulses, Other (Right lower extremity PMS in tact). Absent: edema - Labs and Meds Coagulation 01/20/21 Range/Units 00:55 PT 14.6 (12.2-14.9) Sec. INR 1.09 (0.87-1.13) CBC 01/20/21 Range/Units 00:55 WBC 9.9 (4.5-11.0) K/mm3 RBC 4.27 (3.65-5.03) M/mm3 Hgb 11.9 (10.1-14.3) gm/dl Hct 37.2 (30.3-42.9) % Plt Count 181 (140-440) K/mm3 Comprehensive Metabolic Panel 01/20/21 Range/Units 00:55 Sodium 143 (137-145) mmol/L Potassium 3.9 (3.6-5.0) mmol/L Chloride 106.8 (98-107) mmol/L Carbon Dioxide 23 (22-30) mmol/L BUN 7 (7-17) mg/dL Creatinine 0.8 (0.6-1.2) mg/dL Glucose 83 (65-100) mg/dL Calcium 10.1 (8.4-10.2) mg/dL - Imaging and Cardiology EKG: report reviewed, image reviewed Echo: report reviewed (Echocardiogram reviewed (01/17/2021): LVEF is 50 to 55%. LV SF is normal. Mild diastolic dysfunction. RV SF is normal. RA mildly dilated. Mild MR. Mild TR RVSP is 37 mmHg.) Cardiac cath: report reviewed ([facility] (01/20/2021): Nonobstructive mild global coronary artery disease) - Telemetry EKG Rhythm: Sinus Bradycardia - EKG Sinus rhythms and dysrhythmias: sinus rhythm
[2021-01-20] MEDS: DEXTROSE 50% IN WATER (25GM) 50 ML SYRINGE IV PRN (12:07)
[2021-01-20] MEDS: METOPROLOL TARTRATE 25 MG TAB PO SCH ×3 (12:26→23:19)
[2021-01-20] MEDS: FAMOTIDINE 20 MG/2 ML INJ IV SCH (12:29)
--- NOTE | 2021-01-20 16:11 | Discharge Summary ---
Providers - Providers Date of Admission: 01/17/21 03:09 Date of discharge: 01/23/21 Attending physician: BENJI HOWE 01/17/21 Consult to Cardiac Rehabilitation [CONS] Routine Reason For Exam: Phase I 01/17/21 02:31 Consult to Cardiology [CONS] Routine Consulting Provider: CINDY TREADWELL Reason For Exam: Elevated troponin Consult to Dietitian/Nutrition [CONS] Routine Physician Instructions: Reason For Exam: Reason for Consult: Diet education 01/18/21 09:18 Physical Therapy Evaluation and Treat [CONS] Routine Comment: Reason For Exam: weakness 01/18/21 13:15 Consult to Physician [CONS] Routine Comment: Consulting Provider: KARSTEN STEELE Physician Instructions: Reason For Exam: mild hydronephrosis/renal stone 01/18/21 13:59 Consult to Dietitian/Nutrition [CONS] Routine Physician Instructions: Reason For Exam: Reason for Consult: Poor oral intake Primary care physician: CASE VICENTE MD Hospitalization Condition: Stable Pertinent studies: Head CT, chest x-ray, renal ultrasound, abdomen CT x2 , 2D echocardiogram, Procedures: Coronary angiogram by marketing officer Ultrasound and fluoroscopic guided placement of nephrostomy tube with the pigtail portion of the catheter within the renal pelvis by IR. Hospital course: 80 years old female with history of hypertension, diabetes and possible dementia was brought to the emergency room via EMS from home for evaluation of altered mental status and decreased responsiveness. EMS stated that patient initial oxygen saturation was 82 improved to 96% on 2 L. Patient was not communicating well due to her current mental status so history is limited to EMS report. In the emergency room patient is found to have UTI, sepsis, atrial fibrillation RVR and hypotensive . Patient potassium was 3.2, lactic acid initially 6.30 and calcium 12.4 and troponin 0 0.168. Patient was placed on empiric antibiotics, placed on IV fluid, monitored with serial BMP and troponin level. Cardiology was consulted. Patient also initiated on heparin drip. CT abdomen pelvis showed right ureteric 15 mm stone. Patient did have PCN tube placed on the right side during her prior admission to [facility] by IR. Discussed with urologist by phone and recommended patient to have follow-up as outpatient with her own ur ologist for further planning care. She Was Further Evaluated with a Cardiac cath which showed preserved EF with mild disease and cardiology recommended medical management. Patient was not recommended anticoagulation as her atrial fibrillation was resolved and she also developed hematuria while in the hospital. Her anticoagulation decision will be made as outpatient, she will continue aspirin. Patient's troponin and lactic acid trended down, calcium level normalized. Patient was then noted with pinkish discharge from the PCN tube and not draining any urine. IR was consulted, repeat CT abdomen pelvis obtained and found a right PCN tube dislodged from the intrarenal collecting system. New PCN tube has been placed by IR and patient tolerated the procedure well. Patient was then evaluated by therapy and recommended home health. She was also evaluated for home oxygen requirement which she did not qualify. Patient was then discharged home in stable condition with outpatient follow-up. Daily clinical course: 01/17/2021: Patient seen and examined, no acute distress, states that she is hungry. Spoke with cardiology pertaining to patient's plan of care. 01/18/2021: Patient seen and examined, no complaints. Eating breakfast. Denies any chest pain or shortness of breath. Of note, there was a discrepancy with the patient's orders due to an account error. Patient did not get any heparin overnight because no orders were completed. Specifically called the ED on 01/17/2021 to have the accounts adjusted, it was never done. The overnight physician was also called due to this error and it was still not fixed. Patient did not have any meds or heparin during the morning. I spoke with back control and the nursing staff and the orders were finally completed. Discussed with urologist by phone. Continue empiric antibiotics, follow cardiology recommendation. 01/19/21: Patient feeling better. waiting on urology recommendation. restarted heparin drip, planned for cardiac cath tomorrow am 01/20/21: cardiac cath showed mild CAD - planned for medical mx. consult PT. off heparin drip. d/c planning once cleared by PT. urology recommended outpatient follow-up and no further urological procedure during this hospitalization as patient currently being treated for UTI and sepsis. 01/21/21: PCN tube got clogged and not draining this afternoon. will consult IR, cont supportive care. BMP tomorrow am. Discussed with patient's son by person at the bedside. Also discussed with Dr. Morrell by phone and recommended patient to have outpatient follow-up for possible lithotripsy electively. 01/22/21: Nephrostomy tube has been pulled back by the patient into the renal parenchyma yesterday resulting in bleeding into the pelvis and calyces. CT scan demonstrates increased attenuation of the fluid within the renal pelvis. s/p Ultrasound and fluoroscopic guided placement of nephrostomy tube with the pigtail portion of the catheter within the renal pelvis today by IR. Continue to follow renal function. Wait for PT eval and home O2 assessment. If clinically stable possible discharge tomorrow. 01/23/21: Patient appears clinically stable. Did not qualify for home oxygen. PT recommended home health. New PCN tube draining properly. Patient will be discharged home in stable condition with outpatient follow-up. Disposition: DC-30 STILL A PATIENT Final Discharge Diagnosis (Prints w/discharge instructions): --Sepsis secondary to urinary tract infection. --UTI (urinary tract infection). --Hematuria, resolved. --Moderate hydronephrosis on right kidney with 15 mm mid ureteric stone s/p right PCN place on prior admission which now replaced due to malfunction. --Paroxysmal Atrial fibrillation with RVR. --Hypotension, resolved with IV fluid. --HTN, stable. --Diabetes mellitus type II. --Elevated troponin, most likely NSTEMI type II. --Moderate protein caloric/ malnutrition. --Generalized weakness, HH with PT. --Hypercalcemia, resolved with IV fluid, likely from hyperparathyroidism. --Acute hypoxic respiratory failure likely due to COPD exacerbation resolved. --Mild COPD exacerbation, POA . --PCN tube malfunction/dislodgment status post placement of new PCN tube by IR Time spent for discharge: 34 minutes Core Measure Documentation - Palliative Care Palliative Care/ Comfort Measures: Not Applicable - Core Measures Any of the following diagnoses?: none Exam - Physical Exam Narrative exam: GENERAL: Elderly -[place] female lying on bed appeared to be in no discomfort. HEENT: Normocephalic. Atraumatic. No conjunctival congestion or icterus. Patient has moist mucous membranes. NECK: Supple. Trachea midline. CHEST/LUNGS: Clear to auscultated bilaterally, breathing nonlabored. No wheezes crackles or rhonchi. HEART/CARDIOVASCULAR: Regular in rate and rhythm. S1 and S2 positive. ABDOMEN: Abdomen is soft, nontender. Patient has normal bowel sounds. Right nephrostomy tube in place SKIN: There is no rash. Warm and dry. NEURO: No focal motor deficit. Follows command. MUSCULOSKELETAL: No joint effusion or tenderness. EXTRIMITY: No edema, no cyanosis or clubbing. PSYCH: Cooperative. - Constitutional Vitals: Temp Pulse Resp BP Pulse Ox 96.6 F L 64 19 143/84 98 01/20/21 11:59 01/20/21 11:59 01/20/21 11:59 01/20/21 12:26 01/20/21 11:59 Plan Activity: fall precautions Weight Bearing Status: Non-Weight Bearing Diet: low cholesterol, low salt Wound: keep clean and dry Special Instructions: physical therapy, home health RN Additional Instructions: Follow-up with urologist in 1 week for further definitive management for right ureteric stone. Plan of Treatment: MD order to continue with Home Health after D/C Follow up with: CASE VICENTE MD [Primary Care Provider] - 3-5 Days JACQUELINE MORRELL MD [Staff Physician] - 7 Days Prescriptions: levoFLOXacin [Levaquin TAB] 750 mg PO QDAY #5 tablet Metoprolol [Lopressor TAB] 25 mg PO BID #60 tablet
--- NOTE | 2021-01-20 17:53 | Electrocardiograph Report ---
[facility] Test Date: 2021-01-19 Test Time: 07:09:05 Pat Name: CORA POLLARD Department: Room: A466 1 Gender: F Inpatient Services Director: NEREYDA : 1940 Requested By: JANELL FINLEY Order Number: [id number] Reading MD: Denita Alicea Measurements Intervals [place] Rate: 63 P: SC: QRS: 4 QRSD: 76 T: 29 QT: 437 QTc: 449 Interpretive Statements Normal sinus rhythm Low voltage, extremity leads Compared to ECG 01/16/2021 23:45:48 Sinus rhythm has replaced atrial fibrillation Electronically Signed On 01-20-2021 17:53:04 EDT by Denita Alicea
--- NOTE | 2021-01-20 17:55 | Electrocardiograph Report ---
[facility] Test Date: 2021-01-19 Test Time: 10:57:16 Pat Name: CORA POLLARD Department: Room: A466 1 Gender: F Inventory Control Associate: NEREYDA : 1940 Requested By: SHIRLEY MICHELLE Order Number: [id number] Reading MD: Denita Alicea Measurements Intervals [place] Rate: 57 P: 64 MA: 209 QRS: 17 QRSD: 74 T: 33 QT: 422 QTc: 411 Interpretive Statements Sinus rhythm Compared to ECG 01/19/2021 07:09:05 No significant change Electronically Signed On 01-20-2021 17:55:20 EDT by Denita Alicea
--- NOTE | 2021-01-20 18:06 | Electrocardiograph Report ---
[facility] Test Date: 2021-01-20 Test Time: 07:54:32 Pat Name: CORA POLLARD Department: Room: A466 1 Gender: F Analytics Leader: JUSTIN : 1940 Requested By: JEFFERY LOMELI Order Number: [id number] Reading MD: Denita Alicea Measurements Intervals [place] Rate: 58 P: 54 SC: 222 QRS: 6 QRSD: 76 T: 38 QT: 416 QTc: 409 Interpretive Statements Sinus bradycardia Prolonged SC interval Compared to ECG 01/19/2021 10:57:16 No significant change Electronically Signed On 01-20-2021 18:06:26 EDT by Denita Alicea
[2021-01-21 06:40] LABS: Hematocrit 40.9 % (30.3-42.9); Hemoglobin 12.8 gm/dl (10.1-14.3)
--- NOTE | 2021-01-21 08:38 | Event Note ---
Date: 01/18/21 Please note that there are no orders notes in this account because a new account was made by accident and ER registration when the patient was transferred from critical care to the ED. Select previous visit to find all notes and labs and orders. [facility] has been contacted to attempt to merge accounts.
[2021-01-21] MEDS: INSULIN REGULAR, HUMAN 100 UNITS/1 ML SUB-Q SCH ×4 (09:26→22:08)
[2021-01-21] MEDS: FAMOTIDINE 20 MG/2 ML INJ IV SCH (09:59)
[2021-01-21] MEDS: ASPIRIN 81 MG TAB CHEW PO SCH (09:59)
[2021-01-21] MEDS: METOPROLOL TARTRATE 25 MG TAB PO SCH ×2 (10:00→22:07)
--- NOTE | 2021-01-21 10:57 | Electrocardiograph Report ---
[facility] Test Date: 2021-01-16 Test Time: 23:45:48 Pat Name: CORA POLLARD Department: Room: A466 1 Gender: F Bleach Packer: MAY : 1940 Requested By: VIVI CARLOS Order Number: [id number] Reading MD: Doug iJ Measurements Intervals [place] Rate: 112 P: [place]: QRS: 53 QRSD: 77 T: 43 QT: 335 QTc: 459 Interpretive Statements Atrial fibrillation Borderline ST depression, anterior leads Compared to ECG 11/16/2020 07:59:57 ST (T wave) deviation now present Atrial fibrillation replaced S.R. Electronically Signed On 01-21-2021 10:56:47 EDT by Doug Ji
--- NOTE | 2021-01-21 12:04 | Consultation ---
DATE OF CONSULTATION: 01/20/2021 HISTORY OF PRESENT ILLNESS: The patient is an 81-year-old woman who has a cystic-type circular mass, left kidney. She was admitted for altered mental status, abdominal pain and evidence of sepsis. PAST MEDICAL HISTORY: Diabetes, hypertension. ALLERGIES: None. SOCIAL HISTORY: Noncontributory. FAMILY HISTORY: Noncontributory. REVIEW OF SYSTEMS: Just abdominal pain. She is not capable of giving a full history. PHYSICAL EXAMINATION: ABDOMEN: She is mildly distended. She has no localized CVA tenderness. She is complaining of persistent abdominal pain. ASSESSMENT AND PLAN: Abdominal pain. She has been very constipated, distention. CT scan shows this mass which is somewhat new over the last nine months in the left kidney, unlikely to be the source of this acute abdominal pain. Her troponin was elevated. She needs a surgical consultation. Interventionalist seen her as well. At this point, she is not a candidate for major surgery and at the most she would have percutaneous drainage if need be, but at this point, I do not think her abdominal pain is related to this renal lesion. She had some hydronephrosis on the right on ultrasound, which was resolved on the CT scan. She has a 15 mm stone. TID: [id number] RECEIPT: [id number] SHAUN/ELVIRA
--- NOTE | 2021-01-21 12:46 | Consultation ---
DATE OF CONSULTATION: 01/20/2021 HISTORY OF PRESENT ILLNESS: The patient is an 81-year-old woman with progressive dementia, neurological issues and admitted for mental status changes. She is known to have a large stone in the right kidney with a percutaneous nephrostomy. She is admitted for neurological evaluation. She has a draining percutaneous nephrostomy. A CT scan shows no hydronephrosis. Tube was in position with a large stone. This will have to be treated at a later date when she is medically cleared to have major surgery. PAST MEDICAL HISTORY: History of stone, previous percutaneous nephrostomy. MEDICATIONS: Diltiazem. SOCIAL HISTORY: Noncontributory. FAMILY HISTORY: Negative. REVIEW OF SYSTEMS: She has no pain. She is comfortable. She is cooperative. PHYSICAL EXAMINATION: GENERAL: She is awake, in no distress. ABDOMEN: Soft, nondistended. EXTREMITIES: There is no flank pain. IMPRESSION: Admitted for possible sepsis. Her white count initially was elevated. She has a tube draining. She has no significant pain. PLAN: The patient will be stabilize medically, followup treatment of the stone as an outpatient when she is medically stable and cardiac under control with an elevated troponin. TID: [id number] RECEIPT: [id number] SHAUN/DICKSON
--- NOTE | 2021-01-21 14:07 | Progress Note ---
Assessment and Plan NSTEMI suspect type II * Patient is currently chest pain-free with no cardiac complaints. * Echocardiogram reviewed (01/17/2021): LVEF is 50 to 55%. LV SF is normal. Mild diastolic dysfunction. RV SF is normal. RA mildly dilated. Mild MR. Mild TR RVSP is 37 mmHg. * [facility] (01/20/2021): Nonobstructive mild global coronary artery disease Paroxysmal A. fib * Review of telemetry shows sinus rhythm 69 with no episodes of A. fib in last 72 hours. Patient currently stable cardiac status. Patient may discharge from cardiology standpoint. Will follow on as-needed basis. Patient should follow-up with Dr Stevenson, [facility] heart specialists at our [place] location on 02/08/2021 at 1 PM. #[id number] This patient was seen in conjunction with Dr Ji who agrees with this assessment and plan of care - Patient Problems (1) Sepsis Current Visit: Yes Status: Acute (2) UTI (urinary tract infection) Current Visit: Yes Status: Acute (3) MONA (acute kidney injury) Current Visit: Yes Status: Acute (4) Non-STEMI (non-ST elevated myocardial infarction) Current Visit: Yes Status: Acute Plan to address problem: Type 2 (5) Paroxysmal A-fib Current Visit: Yes Status: Chronic (6) HTN (hypertension) Current Visit: Yes Status: Chronic Qualifiers: Hypertension type: primary hypertension Qualified Code(s): I10 - Essential (primary) hypertension (7) Diabetes Current Visit: Yes Status: Chronic Qualifiers: Diabetes mellitus type: type 2 Subjective Date of service: 01/21/21 Principal diagnosis: Sepsis/UTI Interval history: Patient resting comfortably in bed. No chest pain or shortness of breath overnight Telemetry reviewed: Sinus rhyhm 69. No events Objective Last Vital Signs Temp 98.0 F 01/21/21 12:13 Pulse 70 01/21/21 12:13 Resp 20 01/21/21 12:13 BP 130/81 01/21/21 12:13 Pulse Ox 98 01/21/21 12:13 - Physical Examination General: No Apparent Distress HEENT: Positive: EOMI, Normocephaly, Mucus Membranes Moist Neck: Positive: neck supple, trachea midline. Negative: JVD/HJR Cardiac: Positive: Reg Rate and Rhythm, S1/S2 Lungs: Positive: Normal Exam, Normal Breath Sounds Neuro: Positive: Grossly Intact Abdomen: Positive: Soft. Negative: Tender Skin: Negative: Rash Incision: Cardiac Cath Site (Right groin cath site Telfa Tegaderm in place no bleeding or hematoma noted) Musculoskeletal: No Pain Extremities: Present: lower extr. pulses, Other (Right lower extremity PMS intact). Absent: edema - Labs and Meds CBC 01/21/21 Range/Units 05:16 Hgb 12.8 (10.1-14.3) gm/dl Hct 40.9 (30.3-42.9) % Plt Count 166 (140-440) K/mm3 - Imaging and Cardiology EKG: report reviewed, image reviewed Nuclear stress test: report reviewed (Lexiscan MPI stress test (01/21/2021): Small inferior lateral defect. Recommend medical therapy) Echo: report reviewed (Echocardiogram reviewed (01/17/2021): LVEF is 50 to 55%. LV SF is normal. Mild diastolic dysfunction. RV SF is normal. RA mildly dilated. Mild MR. Mild TR RVSP is 37 mmHg.) Cardiac cath: report reviewed ([facility] (01/20/2021): Nonobstructive mild global coronary artery disease) - EKG Sinus rhythms and dysrhythmias: sinus rhythm
[2021-01-21] MEDS ORDERED: CLOPIDOGREL 75 MG TAB PO SCH (15:00)
--- NOTE | 2021-01-21 15:23 | Progress Note ---
Assessment and Plan 81-year-old -[place] Citizen female who presented with A. fib RVR, and a UTI secondary to possible renal stone. --Sepsis secondary to urinary tract infection Fluid boluses Fluids Blood culture and urine culture pending Continue Levaquin antibiotics --UTI (urinary tract infection) Levaquin antibiotics Fluids Urine cultures Hematuria, resolved Likely secondary to from urinary tract infection and right kidney stone Renal ultrasound with hydronephrosis, H&H stable Moderate hydronephrosis on right kidney with 15 mm mid ureteric stone Urology consulted CT of abdomen and pelvis showed 15 mm right ureteric stone with PCN tube in place Urology called and case discussed, they will see the patient today --Atrial fibrillation with RVR Aspirin Lipitor Patient spontaneously converted, Cardizem not given Cardiology consulted Echocardiogram pending --Hypotension s/p Fluid bolus x1 L --Diabetes mellitus type II cont Insulin sliding scale Elevated troponin, most likely NSTEMI type II Cardiology consulted Echocardiogram showed preserved EF Low-dose heparin drip for now Cardiac catheterization scheduled for tomorrow --Hypercalcemia cont iv fluid --Generalized weakness Dietary supplements, PT --Moderate caloric/ malnutrition Dietary supplements --DVT prophylaxis pt on heparin drip. Pepcid 20 mg IV every 12 hours for GI prophylaxis. Patient is a full code CODE STATUS: Full DVT prophylaxis: Heparin Disposition: Cardiac catheterization tomorrow, urology to see the patient for evaluation of possible renal stone, continue treatment for UTI. Daily clinical course: 01/17/2021: Patient seen and examined, no acute distress, states that she is hungry. Spoke with cardiology pertaining to patient's plan of care. 01/18/2021: Patient seen and examined, no complaints. Eating breakfast. Denies any chest pain or shortness of breath. Of note, there was a discrepancy with the patient's orders due to an account error. Patient did not get any heparin overnight because no orders were completed. Specifically called the ED on 01/17/2021 to have the accounts adjusted, it was never done. The overnight physician was also called due to this error and it was still not fixed. Patient did not have any meds or heparin during the morning. I spoke with back control and the nursing staff and the orders were finally completed. 01/19/21: Patient feeling better. waiting on urology recommendation. restarted heparin drip, planned for cardiac cath tomorrow am 01/20/21: cardiac cath showed mild CAD - planned for medical mx. consult PT. off heparin drip. d/c planning once cleard by PT Subjective Date of service: 01/20/21 Principal diagnosis: Sepsis/UTI Interval history: Patient seen and examined. Medical records and medication list reviewed. No acute event overnight noted by the RN. Patient denies any chest pain or difficulty breathing. Patient is tolerating diet. Status post cardiac cath today Discussed plan of care at bedside with patient. Objective - Exam Narrative Exam: GENERAL: Elderly -[place] Citizen female lying on bed appeared to be in no discomfort. HEENT: Normocephalic. Atraumatic. No conjunctival congestion or icterus. Patient has moist mucous membranes. NECK: Supple. Trachea midline. CHEST/LUNGS: Clear to auscultated bilaterally, breathing nonlabored. No wheezes crackles or rhonchi. HEART/CARDIOVASCULAR: Regular in rate and rhythm. S1 and S2 positive. ABDOMEN: Abdomen is soft, nontender. Patient has normal bowel sounds. Right nephrostomy tube in place SKIN: There is no rash. Warm and dry. NEURO: No focal motor deficit. Follows command. MUSCULOSKELETAL: No joint effusion or tenderness. EXTRIMITY: No edema, no cyanosis or clubbing. PSYCH: Cooperative. - Constitutional Vitals: Vital Signs - 12hr 01/21/21 01/21/21 01/21/21 04:13 07:48 09:30 Temperature 98.0 F 98.3 F Pulse Rate 59 L 61 Respiratory 18 16 Rate Blood Pressure 120/79 131/77 O2 Sat by Pulse 100 97 99 Oximetry 01/21/21 01/21/21 01/21/21 10:00 11:19 12:13 Temperature 98.0 F Pulse Rate 71 70 Respiratory 18 20 Rate Blood Pressure 130/81 O2 Sat by Pulse 98 Oximetry - Labs CBC & Chem 7: 01/21/21 05:16 01/20/21 00:55 Labs: Abnormal lab results 01/20/21 Range/Units 14:46 Heparin Anti-Xa Level 0.10 L (0.3-0.7) U.I./ml HEART Score - HEART Score Troponin: Troponin T 0.129 ng/mL (0.00-0.029) H* D 01/20/21 00:55
--- NOTE | 2021-01-21 16:50 | Progress Note ---
Assessment and Plan 81-year-old -[place] female who presented with A. fib RVR, and a UTI secondary to possible renal stone. --Sepsis secondary to urinary tract infection Status post fluid boluses Blood culture negative Continue Levaquin antibiotics --UTI (urinary tract infection) Levaquin antibiotics Fluids Urine cultures Hematuria, resolved Likely secondary to from urinary tract infection and right kidney stone Renal ultrasound with hydronephrosis, H&H stable Moderate hydronephrosis on right kidney with 15 mm mid ureteric stone Urology consulted CT of abdomen and pelvis showed 15 mm right ureteric stone with PCN tube in place Urology called and case discussed, they will see the patient as outpt --Atrial fibrillation with RVR Aspirin Lipitor Patient spontaneously converted, Cardizem not given Cardiology consulted Echocardiogram showed preserved EF --Hypotension s/p Fluid bolus x1 L --Diabetes mellitus type II cont Insulin sliding scale Elevated troponin, most likely NSTEMI type II Cardiology consulted Echocardiogram showed preserved EF Low-dose heparin drip for now Cardiac catheterization showed mild CAD: medical mx --Hypercalcemia, likely due to primary hyperparathyroidism cont iv fluid --Generalized weakness Dietary supplements, PT --Moderate caloric/ malnutrition Dietary supplements --Patient did malfunction, consulted IR, ordered for repeat CT abdomen pelvis --DVT prophylaxis Status post heparin drip. Pepcid 20 mg IV every 12 hours for GI prophylaxis. Patient is a full code CODE STATUS: Full DVT prophylaxis: Heparin Disposition: Vascular consulted for PCN tube malfunction, continue treatment for UTI. Daily clinical course: 01/17/2021: Patient seen and examined, no acute distress, states that she is hungry. Spoke with cardiology pertaining to patient's plan of care. 01/18/2021: Patient seen and examined, no complaints. Eating breakfast. Denies any chest pain or shortness of breath. Of note, there was a discrepancy with the patient's orders due to an account error. Patient did not get any heparin overnight because no orders were completed. Specifically called the ED on 01/17/2021 to have the accounts adjusted, it was never done. The overnight physician was also called due to this error and it was still not fixed. Patient did not have any meds or heparin during the morning. I spoke with back control and the nursing staff and the orders were finally completed. 01/19/21: Patient feeling better. waiting on urology recommendation. restarted h eparin drip, planned for cardiac cath tomorrow am 01/20/21: cardiac cath showed mild CAD - planned for medical mx. consult PT. off heparin drip. d/c planning once cleared by PT 01/21/21: PCN tube got clogged and not draining this afternoon. will consult IR, cont supportive care. BMP tomorrow am Subjective Date of service: 01/21/21 Principal diagnosis: Sepsis/UTI Interval history: Patient seen and examined. Medical records and medication list reviewed. No acute event overnight noted by the RN. Patient denies any chest pain or difficulty breathing. Patient is tolerating diet. However PCN tube is not draining any urine today, discussed with vascular and recommended repeat CT abdomen pelvis Discussed plan of care at bedside with patient. Objective - Exam Narrative Exam: GENERAL: Elderly -[place] female lying on bed appeared to be in no discomfort. HEENT: Normocephalic. Atraumatic. No conjunctival congestion or icterus. Patient has moist mucous membranes. NECK: Supple. Trachea midline. CHEST/LUNGS: Clear to auscultated bilaterally, breathing nonlabored. No wheezes crackles or rhonchi. HEART/CARDIOVASCULAR: Regular in rate and rhythm. S1 and S2 positive. ABDOMEN: Abdomen is soft, nontender. Patient has normal bowel sounds. Right nephrostomy tube in place with bloody pinkish discharge SKIN: There is no rash. Warm and dry. NEURO: No focal motor deficit. Follows command. MUSCULOSKELETAL: No joint effusion or tenderness. EXTRIMITY: No edema, no cyanosis or clubbing. PSYCH: Cooperative. - Constitutional Vitals: Vital Signs - 12hr 01/21/21 01/21/21 01/21/21 07:48 09:30 10:00 Temperature 98.3 F Pulse Rate 61 71 Respiratory 16 Rate Blood Pressure 131/77 O2 Sat by Pulse 97 99 Oximetry 01/21/21 01/21/21 11:19 12:13 Temperature 98.0 F Pulse Rate 70 Respiratory 18 20 Rate Blood Pressure 130/81 O2 Sat by Pulse 98 Oximetry - Labs CBC & Chem 7: 01/23/21 12:13 01/23/21 12:13 HEART Score - HEART Score Troponin: Troponin T 0.129 ng/mL (0.00-0.029) H* D 01/20/21 00:55
--- NOTE | 2021-01-21 21:50 | Cat Scan Report ---
CT ABDOMEN AND PELVIS WITHOUT CONTRAST INDICATION: neph tube malfunction. TECHNIQUE: Axial CT images were obtained through the abdomen and pelvis without IV contrast. All CT scans at [facility] location are performed using CT dose reduction for ALARA by means of automated exposure control. COMPARISON: CT chest 01/18/2021 FINDINGS: LOWER CHEST: No significant abnormality. LIVER: No significant abnormality. GALLBLADDER: No significant abnormality. BILE DUCTS: No significant abnormality. PANCREAS: No significant abnormality. SPLEEN: No significant abnormality. ADRENALS: No significant abnormality. RIGHT KIDNEY and URETER: The right nephrostomy tube has pulled back out of the right renal collecting system in its position within the posterior aspect of right renal cortex. Large obstructing 9 mm rig ht mid ureteral stone image 89 extending 13 mm in length and multiple right intrarenal stones again n oted. Moderate dilatation of right renal collecting system and proximal ureter which is hyperdense li emperatriz secondary to hemorrhage. LEFT KIDNEY and URETER: Several exophytic left renal cysts, one of which appears hyperdense and hemor rhagic, unchanged STOMACH and SMALL BOWEL: No significant abnormality. COLON: Mild colonic diverticulosis, unchanged APPENDIX: Normal PERITONEUM: No free fluid. No free air. No fluid collection. LYMPH NODES: No significant adenopathy. AORTA and ARTERIES: Moderate vascular calcifications nonaneurysmal aorta IVC and VEINS: No significant abnormality. URINARY BLADDER: No significant abnormality. REPRODUCTIVE ORGANS: Calcified uterine fibroid. ADDITIONAL FINDINGS: None. SKELETAL SYSTEM: No significant abnormality. IMPRESSION: 1. Right nephrostomy tube has become dislodged from intrarenal collecting system and now has tip in p osterior aspect of right renal cortex. 2. Moderate right hydronephrosis has redeveloped with some hyperdense probable hemorrhage seen within the distended right renal collecting system 3 obstructing 9 mm right mid ureteral stone extending for 13 mm in length and right nephrolithiasis, unchanged Signer Name: Manoj Nunez MD Signed: 01/21/2021 9:45 PM Workstation Name: [id number]
[2021-01-22] MEDS: INSULIN REGULAR, HUMAN 100 UNITS/1 ML SUB-Q SCH ×4 (08:18→22:00)
[2021-01-22] MEDS ORDERED: MIDAZOLAM 2 MG/2 ML INJ ONE (08:44)
[2021-01-22] MEDS ORDERED: fentaNYL 100 MCG/2 ML INJ ONE (08:44)
[2021-01-22] MEDS ORDERED: SODIUM CHLORIDE 0.9% 250ML 250 ML ONE (08:45)
[2021-01-22] MEDS ORDERED: SODIUM CHLORIDE IRRI 500 ML 500 ML IR ONE (08:45)
[2021-01-22] MEDS ORDERED: LIDOCAINE (2%) 20 MG/1 ML VIAL 20 ML MDV INFILTRATI ONE (08:45)
--- NOTE | 2021-01-22 09:24 | Consultation ---
History of Present Illness - Reason for Consult Consult date: 01/22/21 Right nephrostomy tube malfunction - History of Present Illness Patient with a history of altered mental status and decreased responsiveness who was brought to the hospital for the same. She is undergone cardiac catheteriz ation with no significant abnormalities. I the patient has an indwelling right nephrostomy tube with decreased output over the last [address] scan was ordered by me last night which demonstrates retraction of the nephrostomy tube in what appears to be a peripheral calyx. The pigtail still resides within the renal parenchyma. Patient has significant right nephrolithiasis and ureterolithiasis for which she is scheduled for upcoming lithotripsy. Past History Past Medical History: diabetes, hypertension, other (Dementia) Medications and Allergies Allergies Allergy/AdvReac Type Severity Reaction Status Date / Time Penicillins Allergy Unknown Verified 11/14/20 07:33 Home Medications Medication Instructions Recorded Confirmed Last Taken Type Aspirin EC [Halfprin EC] 81 mg PO QDAY #30 tablet 11/18/20 Unknown Rx AtorvaSTATin [Lipitor] 40 mg PO QHS #30 tab 11/19/20 Unknown Rx Metoprolol [Lopressor TAB] 25 mg PO BID #60 tablet 01/20/21 Unknown Rx levoFLOXacin [Levaquin TAB] 750 mg PO QDAY #5 tablet 01/20/21 Unknown Rx Active Meds: Active Medications Acetaminophen (Acetaminophen 325 Mg Tab) 650 mg PO Q4H PRN PRN Reason: Pain MILD(1-3)/Fever >100.5/EDWARDS Albuterol (Albuterol 2.5 Mg/3 Ml Nebu) 2.5 mg IH Q4HRT PRN PRN Reason: Shortness Of Breath Aspirin (Aspirin 81 Mg Tab Chew) 81 mg PO QDAY [facility] Last Admin: 01/21/21 09:59 Dose: 81 mg Documented by: Atorvastatin Calcium (Atorvastatin 40 Mg Tab) 40 mg PO QHS [facility] Last Admin: 01/21/21 22:07 Dose: 40 mg Documented by: Dextrose (Dextrose 50% In Water (25gm) 50 Ml Syringe) 50 ml IV Q30MIN PRN; Protocol PRN Reason: Hypoglycemia Last Admin: 01/20/21 12:07 Dose: 50 ml Documented by: Famotidine (Famotidine 20 Mg Tab) 20 mg PO DAILY [facility] Levofloxacin/Dextrose (Levaquin 750mg/150ml) 750 mg in 150 mls @ 100 mls/hr IV Q48H [facility]; Protocol Stop: 01/26/21 11:29 Last Admin: 01/20/21 13:18 Dose: 100 mls/hr Documented by: Insulin Human Regular (Insulin Regular, Human 100 Units/1 Ml) 0 units SUB-Q ACHS [facility]; Protocol Last Admin: 01/22/21 08:18 Dose: Not Given Documented by: Metoprolol Tartrate (Metoprolol Tartrate 25 Mg Tab) 25 mg PO BID [facility] Last Admin: 01/21/21 22:07 Dose: 25 mg Documented by: Nitroglycerin (Nitroglycerin 0.4 Mg Tab Subl) 0.4 mg SL Q5M PRN PRN Reason: Chest Pain Ondansetron HCl (Ondansetron 4 Mg/2 Ml Inj) 4 mg IV Q8H PRN PRN Reason: Nausea And Vomiting Sodium Chloride (Sodium Chloride 0.9% 10 Ml Flush Syringe) 10 ml IV BID [facility] Last Admin: 01/21/21 22:08 Dose: 10 ml Documented by: Sodium Chloride (Sodium Chloride 0.9% 10 Ml Flush Syringe) 10 ml IV PRN PRN PRN Reason: LINE FLUSH Tramadol HCl (Tramadol 50 Mg Tab) 50 mg PO Q6H PRN PRN Reason: Pain, Moderate (4-6) Review of Systems ROS unobtainable: due to mental status Exam - Constitutional Vitals: Temp Pulse Resp BP Pulse Ox 98.3 F 62 14 118/76 100 01/22/21 07:45 01/22/21 07:45 01/22/21 07:45 01/22/21 07:45 01/22/21 07:45 General appearance: Present: no acute distress - EENT Eyes: Present: EOM intact ENT: hearing intact - Neck Neck: Present: supple - Cardiovascular Rhythm: regular - Abdominal General gastrointestinal: Present: deferred Female genitourinary: Present: deferred - Rectal Rectal Exam: deferred - Psychiatric Psychiatric: cooperative Results - Labs CBC & Chem 7: 01/21/21 05:16 01/20/21 00:55 Labs: Abnormal lab results 01/21/21 Range/Units 21:07 POC Glucose 114 H (70-105) mg/dL - Imaging and Cardiology CT scan - abdomen: report reviewed, image reviewed CT scan - pelvis: report reviewed, image reviewed Assessment and Plan Patient will be brought to the cardiac catheterization lab for either nephrostomy tube exchange with placement of the pigtail portion in the renal pelvis versus placement of a new nephrostomy tube. After recovery, the patient may be discharged from a interventional radiology standpoint to follow-up with her urologist. Patient has upcoming lithotripsy at [facility]
--- NOTE | 2021-01-22 10:12 | Operative Report ---
Operative Report Operative Report: Exam: Fluoroscopic guided placement of nephrostomy tube Clinical indication: Patient with indwelling right nephrostomy tube that she is pulled back into the renal parenchyma. CT scan demonstrates increased attenuation of the fluid within the renal pelvis. Nondraining. Date: 01/22/2021 Procedure: Following an explanation of the risk, benefits and alternatives; written informed consent was obtained from the patient's son. The patient was brought to the angiographic suite and placed in prone position on the examination table. Her indwelling nephrostomy tube and right back and flank were prepped and draped in the usual sterile fashion. 1% lidocaine was used for anesthesia at the catheter exit site and along the tract towards the kidney. The catheter was uncapped. There was prompt return of bloody fluid. Contrast was injected. This demonstrates a sinuous connection with the renal collecting system however, the catheter is within the renal parenchyma not the renal collecting system. Attempts to guide a wire through the indwelling catheter into the collecting system were unsuccessful. Under ultrasound and fluoroscopic guidance, a 7 cm 15-gauge needle was advanced into a posterior middle renal calyx. 0.018 guidewire was then advanced centrally down the proximal ureter. The needle was removed and exchanged for an AccuStick transition dilator. With the transition dilator in the renal pelvis, the guidewire and catheter were removed. Contrast was injected. This opacifies renal collecting system and a dilated proximal ureter down to the level of a ureteral stone. Filling defects are noted throughout the renal collecting system consistent with clot. A 0.035 guidewire was then advanced through the transition dilator into the ureter. The transition dilator was removed and an 8 Chinese nephrostomy tube advanced over the guidewire. The guidewire was removed. The catheter was more proximal than optimal and the trocar and a 0.035 guidewire then readvanced through the catheter and the catheter positioned more centrally at the ureteropelvic junction. The trocar and guidewire were removed. Contrast was injected which demonstrates prompt opacification of a dilated collecting system and proximal ureter. The urine that drained was bloody. With the catheter in position, the catheter was securely fastened to the skin surface using 2-0 Ethilon suture and placed to dependent drainage. Sterile dressing was applied. The patient tolerated the procedure well. There were no immediate postprocedure complications. A minimal amount of sedation was utilized secondary to patient's dementia. Continuous cardiopulmonary monitoring was utilized. Impression: 1) Nephrostogram through indwelling catheter demonstrating that the indwelling catheter has been retracted into the renal parenchyma with bloody drainage. 2) Ultrasound and fluoroscopic guided placement of nephrostomy tube with the pigtail portion of the catheter within the renal pelvis.
--- NOTE | 2021-01-22 10:13 | Event Note ---
Date: 01/22/21 Patient's previous nephrostomy tube has been pulled back by the patient into the renal parenchyma resulting in bleeding into the pelvis and calyces. With placement of a new nephrostomy tube with the pigtail portion in the renal pelvis, would expect serosanguineous drainage.
[2021-01-22] MEDS: FAMOTIDINE 20 MG TAB PO SCH (10:41)
[2021-01-22] MEDS: ASPIRIN 81 MG TAB CHEW PO SCH (10:41)
[2021-01-22] MEDS: METOPROLOL TARTRATE 25 MG TAB PO SCH ×2 (10:45→21:16)
--- NOTE | 2021-01-22 17:20 | XRay Report ---
CHEST 1 VIEW 01/22/2021 5:04 PM INDICATION / CLINICAL INFORMATION: Shortness of breath. COMPARISON: 01/18/21. FINDINGS: SUPPORT DEVICES: None. HEART / MEDIASTINUM: The heart size and pulmonary vasculature are normal. LUNGS / PLEURA: No significant pulmonary or pleural abnormality. No pneumothorax. ADDITIONAL FINDINGS: No significant additional findings. IMPRESSION: No acute abnormality or significant change. Signer Name: Chad Moy MD Signed: 01/22/2021 5:16 PM Workstation Name: [id number]
--- NOTE | 2021-01-22 18:45 | Progress Note ---
Assessment and Plan 81-year-old -[place] female who presented with A. fib RVR, and a UTI secondary to possible renal stone. --Sepsis secondary to urinary tract infection Status post fluid boluses Blood culture negative Continue Levaquin antibiotics --UTI (urinary tract infection) Levaquin antibiotics Fluids Urine cultures Hematuria, resolved Likely secondary to from urinary tract infection and right kidney stone Renal ultrasound with hydronephrosis, H&H stable Moderate hydronephrosis on right kidney with 15 mm mid ureteric stone Urology consulted CT of abdomen and pelvis showed 15 mm right ureteric stone with PCN tube in place Urology called and case discussed, they will see the patient as outpt --Atrial fibrillation with RVR Aspirin Lipitor Patient spontaneously converted, Cardizem not given Cardiology consulted Echocardiogram showed preserved EF --Hypotension s/p Fluid bolus x1 L --Diabetes mellitus type II cont Insulin sliding scale Elevated troponin, most likely NSTEMI type II Cardiology consulted Echocardiogram showed preserved EF s/p Low-dose heparin drip Cardiac catheterization showed mild CAD: medical mx --Acute on chronic respiratory failure with hypoxia, POA EMS stated that patient initial oxygen saturation was 82 improved to 96% on 2 L likely from COPD exacerbation, patient was on home O2 but recently discontinued asses for home O2 eval --COPD with mild exacerbation nebs as needed --Hypercalcemia likely from primary hyperparathyroidism cont iv fluid, Ca level stable need further outpt f/u --Generalized weakness Dietary supplements, PT --Moderate caloric/ malnutrition Dietary supplements --PCN tube malfunction: consulted IR, ordered for repeat CT abdomen pelvis --DVT prophylaxis pt on heparin drip. Pepcid 20 mg IV every 12 hours for GI prophylaxis. Patient is a full code CODE STATUS: Full DVT prophylaxis: Heparin Disposition: IR Vascular consulted for PCN tube malfunction, continue treatment for UTI. Await for home O2 assessment and PT eval. Daily clinical course: 01/17/2021: Patient seen and examined, no acute distress, states that she is hungry. Spoke with cardiology pertaining to patient's plan of care. 01/18/2021: Patient seen and examined, no complaints. Eating breakfast. Denies any chest pain or shortness of breath. Of note, there was a discrepancy with the patient's orders due to an account error. Patient did not get any heparin overnight because no orders were completed. Specifically called the ED on 01/17/2021 to have the accounts adjusted, it was never done. The overnight physician was also called due to this error and it was still not fixed. Patient did not have any meds or heparin during the morning. I spoke with back control and the nursing staff and the orders were finally completed. 01/19/21: Patient feeling better. waiting on urology recommendation. restarted heparin drip, planned for cardiac cath tomorrow am 01/20/21: cardiac cath showed mild CAD - planned for medical mx. consult PT. off heparin drip. d/c planning once cleared by PT 01/21/21: PCN tube got clogged and not draining this afternoon. will consult IR, cont supportive care. BMP tomorrow am. Discussed with patient's son by person at the bedside. 01/22/21: Nephrostomy tube has been pulled back by the patient into the renal parenchyma resulting in bleeding into the pelvis and calyces. CT scan demonstrates increased attenuation of the fluid within the renal pelvis. s/p Ultrasound and fluoroscopic guided placement of nephrostomy tube with the pigtail portion of the catheter within the renal pelvis. Continue to follow renal function. Wait for PT eval and home O2 assessment. If clinically stable possible discharge tomorrow. Subjective Date of service: 01/22/21 Principal diagnosis: Sepsis/UTI Interval history: Patient seen and examined. Medical records and medication list reviewed. No acute event overnight noted by the RN. Patient denies any chest pain or difficulty breathing. Patient is tolerating diet. Status post placement of a new nephrostomy tube with the pigtail portion in the renal pelvis PT eval on home O2 assessment pending Discussed plan of care at bedside with patient. Objective - Exam Narrative Exam: GENERAL: Elderly -[place] female lying on bed appeared to be in no discomfort. HEENT: Normocephalic. Atraumatic. No conjunctival congestion or icterus. Patient has moist mucous membranes. NECK: Supple. Trachea midline. CHEST/LUNGS: Clear to auscultated bilaterally, breathing nonlabored. No wheezes crackles or rhonchi. HEART/CARDIOVASCULAR: Regular in rate and rhythm. S1 and S2 positive. ABDOMEN: Abdomen is soft, nontender. Patient has normal bowel sounds. Right nephrostomy tube in place SKIN: There is no rash. Warm and dry. NEURO: No focal motor deficit. Follows command. MUSCULOSKELETAL: No joint effusion or tenderness. EXTRIMITY: No edema, no cyanosis or clubbing. PSYCH: Cooperative. - Constitutional Vitals: Vital Signs - 12hr 01/22/21 01/22/21 01/22/21 07:45 10:00 10:30 Temperature 98.3 F 98.1 F Pulse Rate 62 59 L 58 L Respiratory 14 18 Rate Blood Pressure 118/76 111/72 [Left] O2 Sat by Pulse 100 100 100 Oximetry 01/22/21 16:39 Temperature 98.5 F Pulse Rate 71 Respiratory 16 Rate Blood Pressure 134/76 [Left] O2 Sat by Pulse 94 Oximetry - Labs CBC & Chem 7: 01/23/21 12:13 01/23/21 12:13 Labs: Abnormal lab results 01/21/21 01/22/21 Range/Units 21:07 12:03 POC Glucose 114 H 110 H (70-105) mg/dL HEART Score - HEART Score Troponin: Troponin T 0.129 ng/mL (0.00-0.029) H* D 01/20/21 00:55
[2021-01-23 06:30] LABS: Hematocrit 36.7 % (30.3-42.9); Hemoglobin 12.1 gm/dl (10.1-14.3)
[2021-01-23] MEDS: INSULIN REGULAR, HUMAN 100 UNITS/1 ML SUB-Q SCH (09:55)
[2021-01-23 09:56] VITALS: BP 125/78
[2021-01-23] MEDS: METOPROLOL TARTRATE 25 MG TAB PO SCH (09:56)
[2021-01-23] MEDS: ASPIRIN 81 MG TAB CHEW PO SCH (09:56)
[2021-01-23] MEDS: FAMOTIDINE 20 MG TAB PO SCH (09:56)
[2021-01-23 12:34] LABS: Hematocrit 36.6 % (30.3-42.9); Hemoglobin 11.7 gm/dl (10.1-14.3); Mean Corpuscular HGB Conc 32 % (30-34); Mean Corpuscular Volume 87 fl (79-97); Platelet Count 212 K/mm3 (140-440); Red Blood Count 4.19 M/mm3 (3.65-5.03); Red Cell Distribution Width 17.7 % (13.2-15.2)
[2021-01-23 13:26] LABS: BUN/Creatinine Ratio 13; Blood Urea Nitrogen 10 mg/dL (7-17); Calcium 9.9 mg/dL (8.4-10.2); Hemolysis Index 60
== END 2021-01-23 15:50 | disposition home health service (06) | DRG 871 ==
LOC: ED 22:43 → CC1 01-17 03:09 → 4A 01-18 08:17
PROVIDERS: ADMIT Hospitalist; ATTEND Internal Medicine
PROC: 4A023N7 Measurement of Cardiac Sampling and Pressure, Left Heart, Percutaneous Approach (ICD-10-PCS; principal; 2021-01-20)
PROC: B2101ZZ Fluoroscopy of Single Coronary Artery using Low Osmolar Contrast (ICD-10-PCS; 2021-01-20)
PROC: B2151ZZ Fluoroscopy of Left Heart using Low Osmolar Contrast (ICD-10-PCS; 2021-01-20)
PROC: 0T9030Z Drainage of Right Kidney with Drainage Device, Percutaneous Approach (ICD-10-PCS; 2021-01-22)
PROC: BT111ZZ Fluoroscopy of Right Kidney using Low Osmolar Contrast (ICD-10-PCS; 2021-01-22)
DX: A41.9 Sepsis, unspecified organism (principal); I21.A1 Myocardial infarction type 2; J96.01 Acute respiratory failure with hypoxia; E44.0 Moderate protein-calorie malnutrition; N17.9 Acute kidney failure, unspecified; N13.6 Pyonephrosis; J44.1 Chronic obstructive pulmonary disease with (acute) exacerbation; I95.9 Hypotension, unspecified; E21.3 Hyperparathyroidism, unspecified; I48.0 Paroxysmal atrial fibrillation; I10 Essential (primary) hypertension; E11.9 Type 2 diabetes mellitus without complications; F03.90 Unspecified dementia, unspecified severity, without behavioral disturbance, psychotic disturbance, mood disturbance, and anxiety; Z79.899 Other long term (current) drug therapy; Z79.891 Long term (current) use of opiate analgesic; Z79.01 Long term (current) use of anticoagulants; Z79.82 Long term (current) use of aspirin; Z88.0 Allergy status to penicillin; Z68.23 Body mass index [BMI] 23.0-23.9, adult
CPT/HCPCS: 36415; 50389; 50432; 70450; 71045; 74150; 74176; 76770; 80048; 80061; 80076; 81001; 82140; 82550; 82962; 84443; 84484; 85007; 85014; 85018; 85025; 85027; 85049; 85520; 85610; 85730; 87040; 87086; 93005; 93306; 93458; 94640; G0378; A9270-GY; C1729; C1751; C1769; C1894; J1644; J1956; J2250; J3010; J3480; J7030; J7040; J7050; Q9967

== ENCOUNTER 2021-03-15 09:34 | Observation (INO) | payer MEDICARE ==
[2021-03-04 14:25] LABS: Hematocrit 41.1 % (30.3-42.9); Hemoglobin 13.2 gm/dl (10.1-14.3); Mean Corpuscular HGB Conc 32 % (30-34); Mean Corpuscular Volume 86 fl (79-97); Platelet Count 297 K/mm3 (140-440); Red Blood Count 4.81 M/mm3 (3.65-5.03); Red Cell Distribution Width 17.8 % (13.2-15.2)
[2021-03-04 14:26] LABS: Blood Urea Nitrogen 9 mg/dL (7-17); Hemolysis Index 0
[2021-03-04 14:27] LABS: BUN/Creatinine Ratio 13
[2021-03-04 14:30] LABS: Calcium 12.6 mg/dL (8.4-10.2)
--- NOTE | 2021-03-04 14:32 | Anesthesia Consultation ---
Anesthesia Consult and Med Hx Date of service: 03/15/21 - Airway Anesthetic Teeth Evaluation: Dentures ROM Head & Neck: Inadequate (limited extension s/p cervical fusion) Mental/Hyoid Distance: Inadequate Mallampati Class: Class II Intubation Access Assessment: Possibly Difficult (LMA used in most recent surgical procedure) - Pulmonary Exam CTA: Yes - Cardiac Exam Cardiac Exam: RRR - Pre-Operative Health Status ASA Pre-Surgery Classification: ASA3 Proposed Anesthetic Plan: General - Pulmonary Hx Smoking: Yes (quit 15yrs ago) Hx Respiratory Symptoms: No COPD: Yes (albuterol prn) Home Oxygen Therapy: No Hx Sleep Apnea: No (ALONSO PRE SCREEN LOW RISK) - Cardiovascular System Hx Hypertension: Yes Hx Coronary Artery Disease: Yes (mild; medical management only) Hx Percutaneous Transluminal Coronary Angioplasty (PTCA): No Hx Cardia Arrhythmia: No Hx Peripheral Vascular Disease: 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 Recent hospitalization 01/2021 for urosepsis. Had TTE and cardiac cath during that hospitalization which revealed normal EF, no significant valvulopathy, and mild CAD. Reports that she feels back to baseline since discharge.
[~2021-03-15 09:34] MED LIST: SODIUM CHLORIDE 0.9% 1000 ML 1,000 ML IV SCH; SODIUM CHLORIDE 0.9% IRRIG SOLN 2000 ML IR ONE
[2021-03-15] MEDS ORDERED: SODIUM CHLORIDE IRRI 500 ML 500 ML IR ONE (10:30)
[2021-03-15] MEDS ORDERED: MIDAZOLAM 2 MG/2 ML INJ ONE (10:31)
[2021-03-15] MEDS ORDERED: SODIUM CHLORIDE 0.9% 500 ML 500 ML ONE (10:31)
[2021-03-15] MEDS ORDERED: LIDOCAINE (2%) 20 MG/1 ML VIAL 20 ML MDV INFILTRATI ONE (10:31)
[2021-03-15] MEDS ORDERED: fentaNYL 100 MCG/2 ML INJ ONE ×2 (10:32→12:59)
[2021-03-15] MEDS ORDERED: SODIUM CHLORIDE 0.9% 500 ML 500 ML IV SCH (11:00)
[2021-03-15] MEDS ORDERED: DEXTROSE 50% IN WATER (25GM) 50 ML SYRINGE IV ONE ×2 (11:02→15:55)
--- NOTE | 2021-03-15 11:02 | Consultation ---
History of Present Illness - Reason for Consult Consult date: 03/15/21 PCN to PCNU Requesting physician: JACQUELINE MORRELL - History of Present Illness 81-year-old female with history of mild dementia, hypertension, renal calculi, lithotripsies, with indwelling right-sided nephrostomy tube that was placed at an outside institution which was retracted into the renal parenchyma and could not be salvaged. A nephrostomy tube was then placed approximately 2 months ago. She now requires nephrostomy tube conversion to nephroureteral catheter for PCNL. 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) Past Surgical History: Other (Lithotripsies) Social history: smoking (15-year pack history, quit) Family history: no significant family history Medications and Allergies Allergies Allergy/AdvReac Type Severity Reaction Status Date / Time Penicillins Allergy Unknown Verified 11/14/20 07:33 Home Medications Medication Instructions Recorded Confirmed Last Taken Type No Known Home Medications [No 03/04/21 03/04/21 Unknown History Reported Home Medications] Active Meds: Active Medications Sodium Chloride (Nacl 0.9% 1000 Ml) 1,000 mls @ 42 mls/hr IV DIRECT GUME Stop: 03/15/21 23:59 Sodium Chloride (Nacl 0.9% 500 Ml) 500 mls @ 0 mls/hr IV ONCE GUME Stop: 03/15/21 19:00 Review of Systems ROS unobtainable: due to mental status Exam - Constitutional Vitals: Temp Pulse Resp BP Pulse Ox 97.6 F 77 18 130/92 98 03/15/21 10:54 03/15/21 10:54 03/15/21 10:54 03/15/21 10:54 03/15/21 10:54 General appearance: Present: no acute distress - EENT Eyes: Present: EOM intact ENT: hearing intact - Respiratory Respiratory effort: normal (Mild intermittent cough) - Abdominal General gastrointestinal: Present: soft, non-tender, other (Right-sided nephrostomy tube draining urine) - Psychiatric Psychiatric: cooperative, other (Mild dementia, son at bedside who agreed with procedure as well) Results - Labs CBC & Chem 7: 03/04/21 13:45 03/04/21 13:45 Assessment and Plan 81-year-old female with impacted right ureteral calculi with right nephrostomy tube status post lithotripsies who presents for PCNL but requires PCN conversion to PCNU for PCNL. Risks, benefits, and alternatives discussed, patient and son agreed with procedure. Plan for conversion prior to PCNL. Awaiting IV team as patient has no IV access.
[2021-03-15] MEDS ORDERED: fentaNYL 100 MCG/2 ML INJ IV ONE (11:50)
[2021-03-15] MEDS ORDERED: ROCURONIUM 50 MG/5 ML INJ IV ONE (12:59)
[2021-03-15] MEDS ORDERED: propofoL 200 MG/20 ML VIAL IV ONE (12:59)
[2021-03-15] MEDS ORDERED: LIDOCAINE MPF (2%) 20 MG/1 ML VIAL 5 ML ONE (12:59)
--- NOTE | 2021-03-15 12:59 | Anesthesia Day of Surgery ---
Anesthesia Day of Surgery - Day of Surgery Patient Examined: Yes Patient H&P Reviewed: Yes Patient is NPO: Yes
--- NOTE | 2021-03-15 13:00 | Post Operative Note ---
Date of procedure: 03/15/21 Pre-op diagnosis: Hydronephrosis with ureteral calculi Post-op diagnosis: same Procedure: 1. Fluoroscopic guided conversion of a right nephrostomy tube to a right nephroureteral catheter Anesthesia: local (w/ versed) Surgeon: BERTHA MOBLEY Estimated blood loss: minimal Condition: stable Disposition: other (to PACU for PCNL)
[2021-03-15] MEDS ORDERED: SUCCINYLCHOLINE CHLORIDE 200 MG/10 ML INJ MDV ONE (14:33)
--- NOTE | 2021-03-15 14:41 | Operative Report ---
Operative Report Operative Report: EXAM: Right nephrostomy tube conversion to nephroureteral tube DATE: 03/15/2021 [employer]IONAL SALES EXECUTIVE: BERTHA MOBLEY MD INDICATION: Hydronephrosis with right-sided ureteral calculi and need for PCNU for PCNL. MEDICATIONS: Please see nursing report for full details. DEVICES: None. CONTRAST: Please see catheter report for full details. PROCEDURE: The risks, benefits, and alternatives were discussed with the patient and her son; written informed consent was obtained. The patient was brought to the angiography table and placed in a prone position. The right flank was prepped and draped in a sterile fashion. The area around the nephrostomy tube was anesthetized with lidocaine. Contrast was injected demonstrating hydronephrosis with a large proximal ureteral calculi. There is only a trace amount of fluid passing beyond the calculi. 0.035 inch Bentson wire was attempted to be passed through the nephrostomy tube it was unable to be passed and it was exchanged for a 0.035 inch Glidewire. This allowed the nephrostomy tube to then be removed over the wire and exchanged for an angled catheter. Angled catheter was used to select the proximal ureter. [place] wire was then passed through the angled catheter and abutting the calculi in the ureteral calculi and the catheter was exchanged over the wire for a 6 Argentine 23 cm radiopaque sheath. This was brought up to the calculi. Angled catheter and 0.035 inch Glidewire were then passed through the occlusion and passed into the bladder. Contrast was injected confirming position in the bladder. Amplatz wire was then passed through the catheter and the sheath and catheter were then removed. This was exchanged for a 5 Argentine pigtail catheter advanced over the wire and passed into the bladder. Contrast was injected confirming position. Valve was then attached to the end of the catheter and infused with saline. 2, 2-0 Ethilon's were then used to secure the catheter in place. 4 x 4 and Tegaderms were then applied. 260 Amplatz wire was then placed on the chart to give access to the wire for urology. Patient tolerated the procedure well. No immediate postprocedural complications. FINDINGS: Please see procedure note above IMPRESSION: Successful conversion of right-sided nephrostomy tube to nephroureteral catheter for PCNL.
[2021-03-15] MEDS ORDERED: DEXTROSE 50% IN WATER (25GM) 50 ML SYRINGE IV SCH (16:00)
--- NOTE | 2021-03-15 16:14 | Progress Note ---
Assessment and Plan i have been waiting 7 hours to do this case first neph u placed then ready at 12 i was told scope went to be sterilized then needed a laser then update form i was told 4 times pt was in the room or wheeling back never happened now its 415 no staff need to reschedule explained to pt and her son Subjective Date of service: 03/15/21 Principal diagnosis: left ureteral stone Objective - Constitutional Vitals: Vital Signs - 12hr 03/15/21 03/15/21 03/15/21 09:54 10:54 12:30 Temperature 98.4 F 97.6 F Pulse Rate 87 77 90 Respiratory 16 18 18 Rate Blood Pressure 119/80 127/93 Blood Pressure 130/92 [Left] O2 Sat by Pulse 98 98 100 Oximetry General appearance: Present: no acute distress - Labs CBC & Chem 7: 03/04/21 11:34 03/04/21 11:34 Labs: Abnormal lab results 03/04/21 03/04/21 03/15/21 Range/Units 11:34 11:34 10:48 MCH 27 L (28-32) pg RDW 17.8 H (13.2-15.2) % Sodium 135 L (137-145) mmol/L POC Glucose 68 L (70-105) mg/dL Calcium 12.6 H* (8.4-10.2) mg/dL Crossmatch 03/15/21 03/15/21 03/15/21 Range/Units 11:20 12:43 15:53 MCH (28-32) pg RDW (13.2-15.2) % Sodium (137-145) mmol/L POC Glucose 112 H 68 L (70-105) mg/dL Calcium (8.4-10.2) mg/dL Crossmatch See Detail Medications & Allergies - Medications Allergies/Adverse Reactions: Allergies Penicillins Allergy (Verified 11/14/20 07:33) Unknown Home Medications: Home Medications Medication Instructions Recorded Confirmed Last Taken Type No Known Home Medications [No 03/04/21 03/04/21 Unknown History Reported Home Medications] Active Medications: Generic Name Dose Route Start Last Admin Trade Name Freq PRN Reason Stop Dose Admin Sodium Chloride 1,000 mls @ 42 mls/hr 03/15/21 06:00 Nacl 0.9% 1000 Ml IV 03/15/21 23:59 DIRECT GUME Sodium Chloride 500 mls @ 0 mls/hr 03/15/21 11:00 Nacl 0.9% 500 Ml IV 03/15/21 19:00 ONCE GUME As Directed
[2021-03-15] MEDS ORDERED: MORPHINE 2 MG/1 ML INJ IV PRN (17:17)
[2021-03-15] MEDS ORDERED: METOCLOPRAMIDE 10 MG/2 ML INJ IV PRN (17:17)
[2021-03-15] MEDS ORDERED: ACETAMINOPHEN 325 MG TAB PO PRN (17:17)
[2021-03-15] MEDS ORDERED: ONDANSETRON 4 MG/2 ML INJ IV PRN (17:17)
[2021-03-15] MEDS ORDERED: HYDROmorphone 1 MG/1 ML INJ IV PRN (17:17)
[2021-03-15] MEDS ORDERED: ENOXAPARIN 30 MG/0.3 ML INJ SUB-Q SCH (18:00)
--- NOTE | 2021-03-15 21:34 | History and Physical Report ---
History of Present Illness Date of examination: 03/15/21 Date of admission: 03/15/21 17:17 Chief complaint: Left flank pain History of present illness: Patient came in for removal of left ureteral stone. Patient had right nephrostomy tube conversion to nephroureteral tube by interventional radiology-Dr. Fernandez. Patient was also supposed to have a urologic procedure for left ureteral stones which could not be done because of staffing problems and was postponed to tomorrow. Patient being admitted for observation and IV antibiotics and IV fluids. Patient to be taken to the OR tomorrow. Dr. MORRELL is the furniture sales consultant. 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) Past Surgical History: Other (Lithotripsies) Social history: smoking (15-year pack history, quit) Family history: no significant family history Medications and Allergies Allergies Allergy/AdvReac Type Severity Reaction Status Date / Time Penicillins Allergy Unknown Verified 11/14/20 07:33 Home Medications Medication Instructions Recorded Confirmed Last Taken Type No Known Home Medications [No 03/04/21 03/04/21 Unknown History Reported Home Medications] Active Meds: Active Medications Acetaminophen (Acetaminophen 325 Mg Tab) 650 mg PO Q4H PRN PRN Reason: Pain MILD(1-3)/Fever >100.5/EDWARDS Enoxaparin Sodium (Enoxaparin 40 Mg/0.4 Ml Inj) 40 mg SUB-Q QDAY@1000 GUME Famotidine (Famotidine 20 Mg Tab) 20 mg PO BID GUME Hydromorphone HCl (Hydromorphone 1 Mg/1 Ml Inj) 0.5 mg IV Q3H PRN PRN Reason: Pain , Severe (7-10) Sodium Chloride (Nacl 0.9% 1000 Ml) 1,000 mls @ 42 mls/hr IV DIRECT GUME Stop: 03/15/21 23:59 Metoclopramide HCl (Metoclopramide 10 Mg/2 Ml Inj) 10 mg IV Q6H PRN PRN Reason: Nausea And Vomiting Morphine Sulfate (Morphine 2 Mg/1 Ml Inj) 2 mg IV Q4H PRN PRN Reason: Pain, Moderate (4-6) Ondansetron HCl (Ondansetron 4 Mg/2 Ml Inj) 4 mg IV Q8H PRN PRN Reason: Nausea And Vomiting Sodium Chloride (Sodium Chloride 0.9% 10 Ml Flush Syringe) 10 ml IV BID GUME Sodium Chloride (Sodium Chloride 0.9% 10 Ml Flush Syringe) 10 ml IV PRN PRN PRN Reason: LINE FLUSH Review of Systems All systems: negative Exam - Constitutional Vitals: Temp Pulse Resp BP Pulse Ox 98.5 F 83 18 143/92 93 03/15/21 20:17 03/15/21 20:17 03/15/21 20:17 03/15/21 20:17 03/15/21 20:17 General appearance: Present: no acute distress, well-nourished - EENT Eyes: Present: PERRL ENT: hearing intact, clear oral mucosa - Neck Neck: Present: supple, normal ROM - Respiratory Respiratory effort: normal Respiratory: bilateral: CTA - Cardiovascular Heart rate: 78 Rhythm: regular Heart Sounds: Present: S1 & S2. Absent: rub, click - Extremities Extremities: pulses symmetrical, No edema Peripheral Pulses: within normal limits - Abdominal General gastrointestinal: Present: soft, non-tender, non-distended, normal bowel sounds Female genitourinary: Present: normal - Integumentary Integumentary: Present: clear, warm, dry - Musculoskeletal Musculoskeletal: gait normal, strength equal bilaterally - Psychiatric Psychiatric: appropriate mood/affect, intact judgment & insight - Neurologic Neurologic: CNII-XII intact, moves all extremities Results - Labs CBC & Chem 7: 03/16/21 04:07 03/04/21 11:34 Labs: Laboratory Last Values WBC 8.9 K/mm3 (4.5-11.0) 03/04/21 11:34 RBC 4.81 M/mm3 (3.65-5.03) 03/04/21 11:34 Hgb 13.2 gm/dl (10.1-14.3) 03/04/21 11:34 Hct 41.1 % (30.3-42.9) 03/04/21 11:34 MCV 86 fl (79-97) 03/04/21 11:34 MCH 27 pg (28-32) L 03/04/21 11:34 MCHC 32 % (30-34) 03/04/21 11:34 RDW 17.8 % (13.2-15.2) H 03/04/21 11:34 Plt Count 297 K/mm3 (140-440) 03/04/21 11:34 Sodium 135 mmol/L (137-145) L 03/04/21 11:34 Potassium 3.9 mmol/L (3.6-5.0) 03/04/21 11:34 Chloride 98.8 mmol/L (98-107) 03/04/21 11:34 Carbon Dioxide 24 mmol/L (22-30) 03/04/21 11:34 Anion Gap 16 mmol/L 03/04/21 11:34 BUN 9 mg/dL (7-17) 03/04/21 11:34 Creatinine 0.7 mg/dL (0.6-1.2) 03/04/21 11:34 Estimated GFR > 60 ml/min 03/04/21 11:34 BUN/Creatinine Ratio 13 % 03/04/21 11:34 Glucose 89 mg/dL (65-100) 03/04/21 11:34 POC Glucose 109 mg/dL (70-105) H 03/15/21 17:10 Calcium 12.6 mg/dL (8.4-10.2) H* 03/04/21 11:34 Blood Type O POSITIVE 03/15/21 11:20 Antibody Screen Negative 03/15/21 11:20 Crossmatch See Detail 03/15/21 11:20 Short CBC 03/04/21 03/16/21 Range/Units 11:34 04:07 WBC 8.9 12.1 H (4.5-11.0) K/mm3 Hgb 13.2 14.8 H (10.1-14.3) gm/dl Hct 41.1 47.7 H (30.3-42.9) % Plt Count 297 239 (140-440) K/mm3 BMP 03/04/21 11:34 Sodium 135 L Potassium 3.9 Chloride 98.8 Carbon Dioxide 24 BUN 9 Creatinine 0.7 Glucose 89 Calcium 12.6 H* Multani/IV: Voiding Method Toilet Assessment and Plan Advance Directives: Yes (Full code) VTE prophylaxis?: Chemical Plan of care discussed with patient/family: Yes - Patient Problems (1) Ureteral calculus, left Current Visit: Yes Status: Chronic Plan to address problem: For removal of ureteral stone tomorrow (2) Hypercalcemia Current Visit: No Status: Acute Plan to address problem: IV fluids and calcitonin for now (3) UTI (urinary tract infection) Current Visit: No Status: Acute Plan to address problem: IV Rocephin (4) HTN (hypertension) Current Visit: No Status: Chronic Qualifiers: Hypertension type: primary hypertension Qualified Code(s): I10 - Essential (primary) hypertension Plan to address problem: Continue antihypertensives and adjust medications as necessary (5) DVT prophylaxis Current Visit: No Status: Acute Plan to address problem: On heparin and GI prophylaxis
[2021-03-15] MEDS: FAMOTIDINE 20 MG TAB PO SCH (23:30)
[2021-03-16] MEDS: ENOXAPARIN 40 MG/0.4 ML INJ SUB-Q SCH ×2 (01:03→09:18)
[2021-03-16] MEDS: cefTRIAXone/NS 2 GM/100 ML 2 GM/100 ML BAG IV SCH (01:05)
[2021-03-16 04:51] LABS: Eosinophils % (Auto) 0.2 % (0.0-4.3); Lymphocytes # (Auto) 2.5 K/mm3 (1.2-5.4); Lymphocytes % (Auto) 20.6 % (13.4-35.0); Mean Corpuscular HGB Conc 31 % (30-34); Mean Corpuscular Volume 87 fl (79-97); Monocytes # (Auto) 0.8 K/mm3 (0.0-0.8); Monocytes % (Auto) 6.7 % (0.0-7.3); Platelet Count 239 K/mm3 (140-440); Red Blood Count 5.49 M/mm3 (3.65-5.03); Red Cell Distribution Width 18.7 % (13.2-15.2)
[2021-03-16 04:58] LABS: Hematocrit 47.7 % (30.3-42.9); Hemoglobin 14.8 gm/dl (10.1-14.3)
[2021-03-16] MEDS ORDERED: MINERAL OIL Light (Sterile) 10 ML VIAL TP ONE ×2 (07:15→12:00)
[2021-03-16] MEDS ORDERED: HEPARIN 5,000 UNIT/1 ML VIAL SUB-Q SCH (10:00)
[2021-03-16] MEDS ORDERED: SODIUM CHLORIDE 0.9% 1000 ML 1,000 ML ONE (10:38)
[2021-03-16] MEDS ORDERED: propofoL 200 MG/20 ML VIAL IV ONE (10:40)
[2021-03-16] MEDS ORDERED: PHENYLEPHRINE/NS 1,000 MCG/10 ML SYRINGE (OR USE) IV ONE (11:11)
--- NOTE | 2021-03-16 11:17 | Anesthesia Day of Surgery ---
Anesthesia Day of Surgery - Day of Surgery Patient Examined: Yes Patient H&P Reviewed: Yes Patient is NPO: Yes
[2021-03-16] MEDS ORDERED: SODIUM CHLORIDE 0.9% IRRIG SOLN 2000 ML IR ONE (11:59)
[2021-03-16] MEDS ORDERED: HYDROmorphone 1 MG/1 ML INJ IV PRN (12:00)
[2021-03-16] MEDS ORDERED: SODIUM CHLORIDE 0.9% 1000 ML 1,000 ML IV SCH (12:00)
[2021-03-16] MEDS ORDERED: KETOROLAC 30 MG/1 ML INJ ONE (13:15)
[2021-03-16] MEDS ORDERED: GLYCOPYRROLATE 0.4 MG/2 ML INJ ONE (13:16)
[2021-03-16] MEDS ORDERED: ONDANSETRON 4 MG/2 ML INJ ONE (13:16)
[2021-03-16] MEDS ORDERED: NEOSTIGMINE 10MG/10 ML INJ MDV ONE (13:16)
--- NOTE | 2021-03-16 13:18 | Post Operative Note ---
Date of procedure: 03/16/21 Pre-op diagnosis: large stones rk Post-op diagnosis: same Findings: as above Procedure: r perc stent Anesthesia: GETA Surgeon: JACQUELINE MORRELL Estimated blood loss: minimal Pathology: list (stones) Specimen disposition: given to patient/family Condition: stable Disposition: PACU
[2021-03-16] MEDS ORDERED: ROCURONIUM 50 MG/5 ML INJ IV ONE (13:30)
[2021-03-16] MEDS ORDERED: SUCCINYLCHOLINE CHLORIDE 200 MG/10 ML INJ MDV ONE (13:30)
[2021-03-16] MEDS ORDERED: IOHEXOL 240 MG/ML 200 ML IV ONE (13:46)
[2021-03-16] MEDS ORDERED: D5W/0.45% NACL/KCL 20 MEQ 20 MEQ/1,000 ML BAG IV SCH (14:30)
[2021-03-16] MEDS ORDERED: ACETAMINOPHEN 325 MG TAB PO PRN (14:30)
[2021-03-16] MEDS ORDERED: oxyCODONE /ACETAMINOPHEN 5-325MG TAB PO PRN (15:00)
[2021-03-16] MEDS ORDERED: ONDANSETRON 4 MG ODT TAB PO PRN (15:00)
[2021-03-16] MEDS ORDERED: NALOXONE 0.4 MG/1 ML INJ IV PRN (15:00)
--- NOTE | 2021-03-16 15:08 | Discharge Summary ---
Providers - Providers Date of Admission: 03/15/21 17:17 Date of discharge: 03/16/21 Attending physician: BENJI HOWE 03/15/21 17:17 Consult to Physician [CONS] Routine Comment: Consulting Provider: JACQUELINE MORRELL Physician Instructions: Reason For Exam: REnal stone 03/16/21 Consult to Case Management [CONS] Routine Services Needed at Discharge: Home Health Services Notified:: case management Primary care physician: CASE VICENTE MD Hospitalization Hospital course: This is a 81-year-old female with history of coronary artery disease on medical management, COPD hypertension, peripheral vascular disease with a history of hyperparathyroidism, renal calculi who came to hospital for left ureteral stone. Patient had a right nephrostomy tube conversion to nephroureteral tube by interventional radiology. Patient was also supposed to have a urologic procedure for right ureteral stone which could not be done because of staffing problem and was postponed until. Patient was then admitted for observation, IV antibiotics and IV fluids. Patient was taken to the OR yesterday and had ureteric stent placement by Dr. MORRELL. Patient tolerated the procedure well. Patient will be discharged home once cleared by urologist with outpatient follow-up. Final Discharge Diagnosis (Prints w/discharge instructions): --Nephrolithiasis. --Coronary artery disease, COPD, hypertension, peripheral vascular disease. --Hyperparathyroidism with hypercalcemia. --Remote history of tobacco smoking Time spent for discharge: 34 minutes Core Measure Documentation - Palliative Care Palliative Care/ Comfort Measures: Not Applicable - Core Measures Any of the following diagnoses?: none Exam - Physical Exam Narrative exam: GENERAL: well-developed and well-nourished elderly female lying on bed appeared to be in no discomfort. HEENT: Normocephalic. Atraumatic. No conjunctival congestion or icterus. Patient has moist mucous membranes. NECK: Supple. Trachea midline. CHEST/LUNGS: Clear to auscultated bilaterally, breathing nonlabored. No wheezes crackles or rhonchi. HEART/CARDIOVASCULAR: Regular in rate and rhythm. S1 and S2 positive. ABDOMEN: Abdomen is soft, nontender. Patient has normal bowel sounds. SKIN: There is no rash. Warm and dry. NEURO: No focal motor deficit. Follows command. MUSCULOSKELETAL: No joint effusion or tenderness. EXTRIMITY: No edema, no cyanosis or clubbing. PSYCH: Cooperative. - Constitutional Vitals: Temp Pulse Resp BP Pulse Ox 97.9 F 81 16 130/90 100 03/16/21 14:15 03/16/21 14:15 03/16/21 14:15 03/16/21 14:15 03/16/21 14:15 Plan Activity: advance as tolerated Weight Bearing Status: Non-Weight Bearing Diet: low fat, low salt Follow up with: CASE VICENTE MD [Primary Care Provider] - 7 Days JACQUELINE MORRELL MD [Staff Physician] - 7 Days
--- NOTE | 2021-03-16 16:09 | Post Anesthesia Evaluation ---
- Post Anesthesia Evaluation Patient Participated: Yes Airway Patent: Yes Stable Respiratory Function: Yes Nausea/Vomiting: No Temp > 96.8F: Yes Pain Manageable: Yes Adequeate Hydration: Yes Anesthesia Complications: No
--- NOTE | 2021-03-16 17:30 | Fluoroscopy Report ---
FL nephrostogram existing RT Technique: Intraoperative fluoroscopic guidance was provided. Fluoroscopy time: 2 minutes 17 seconds. Fluoroscopy images: 5. Findings/Impression: Intraoperative fluoroscopic guidance for right nephrostogram, placement of right percutaneous nephrostomy tube and right ureteral stent. Please see procedure report for further deta ils. Signer Name: Jairon Castillo MD Signed: 03/16/2021 5:25 PM Workstation Name: [id number]
--- NOTE | 2021-03-16 17:30 | Fluoroscopy Report ---
FL ureter/nephrostomy dilat RT Technique: Intraoperative fluoroscopic guidance was provided. Fluoroscopy time: 2 minutes 17 seconds. Fluoroscopy images: 2. Findings/Impression: Intraoperative fluoroscopic guidance for right nephrostomy balloon dilation. Ple ase see procedure report for further details. Signer Name: Jairon Castillo MD Signed: 03/16/2021 5:26 PM Workstation Name: [id number]
[2021-03-16] MEDS ORDERED: ZOLPIDEM 5 MG TAB PO PRN (22:00)
[2021-03-17] MEDS: DOCUSATE SODIUM 100 MG CAP PO SCH ×3 (00:01→11:03)
[2021-03-17] MEDS: cefTRIAXone/NS 2 GM/100 ML 2 GM/100 ML BAG IV SCH (00:02)
--- NOTE | 2021-03-17 00:49 | Operative Report ---
PREOPERATIVE DIAGNOSES: A 1.1 cm upper ureteral stone, severe hydronephrosis, multiple stones in the kidney. POSTOPERATIVE DIAGNOSES: ____. PROCEDURES: Right percutaneous nephrolithotomy, nephrostogram, double-J stent. SURGEON: Yayo العراقي MD ANESTHESIA: General. FINDINGS: This is a woman with ____ who was septic and now presents for treatment and removal of the ureteral stone. It is too big, it did not respond to lithotripsy. DESCRIPTION OF PROCEDURE: The patient was brought to the operating room and placed on the operating table. Following induction of anesthesia, placed in the prone position, prepped and draped in usual sterile fashion. A rigid Amplatz guidewire placed in the bladder through the nephroureteral stent. The tract was quite tight, but it was dilated first with Amplatz and then with the 30-Moroccan balloon. We eventually got a 26-Moroccan sheath; initially, we had a 24, but it was too small because of multiple stones in the kidney. Once we got the kidney stones out, we took the flexible scope went down the ureter with the flexible cystoscope and broke the stone into about 20 pieces. The ureter was now wide open ____. A second wire was placed, we placed a 7-Moroccan double J in the bladder and in the kidney, it coiled nicely. A 20-Moroccan Councill catheter was placed in the kidney and we used a plug. The patient tolerated the procedure well. No significant complication. Minimal blood loss, brought to recovery room in stable condition. Family notified. TID: [id number] RECEIPT: [id number] SHAUN/HI/SILVANA
--- NOTE | 2021-03-17 08:58 | Progress Note ---
Assessment and Plan home with r perc plugged bunrs out Subjective Date of service: 03/17/21 Principal diagnosis: left ureteral stone Objective - Constitutional Vitals: Vital Signs - 12hr 03/16/21 03/16/21 03/16/21 22:00 23:06 23:07 Temperature 98.9 F Pulse Rate 77 82 Respiratory 19 Rate Blood Pressure 120/78 O2 Sat by Pulse 94 89 94 Oximetry 03/17/21 03:22 Temperature 97.4 F L Pulse Rate 75 Respiratory 16 Rate Blood Pressure 120/76 O2 Sat by Pulse 99 Oximetry General appearance: Present: no acute distress - Neck Neck: supple - Respiratory Respiratory effort: normal Extremities: no ischemia - Labs CBC & Chem 7: 03/16/21 04:07 03/04/21 11:34 Labs: Abnormal lab results 03/16/21 03/16/21 Range/Units 10:49 13:52 POC Glucose 125 H 130 H (70-105) mg/dL Medications & Allergies - Medications Allergies/Adverse Reactions: Allergies Penicillins Allergy (Verified 11/14/20 07:33) Unknown Home Medications: Home Medications Medication Instructions Recorded Confirmed Last Taken Type No Known Home Medications [No 03/04/21 03/04/21 Unknown History Reported Home Medications] Active Medications: Generic Name Dose Route Start Last Admin Trade Name Freq PRN Reason Stop Dose Admin Acetaminophen 650 mg 03/16/21 14:30 Acetaminophen 325 Mg Tab PO Q4H PRN Pain, Mild (1-3)/Fever > 100.5 Docusate Sodium 100 mg 03/16/21 22:00 03/17/21 00:01 Docusate Sodium 100 Mg Cap PO 100 mg BID GUME Administration Enoxaparin Sodium 40 mg 03/15/21 18:00 03/16/21 09:18 Enoxaparin 40 Mg/0.4 Ml Inj SUB-Q Not Given QDAY@1000 GUME Famotidine 20 mg 03/15/21 22:00 03/17/21 00:00 Famotidine 20 Mg Tab PO 20 mg BID GUME Administration Hydromorphone HCl 0.5 mg 03/15/21 17:17 03/16/21 03:57 Hydromorphone 1 Mg/1 Ml Inj IV 0.5 mg Q3H PRN Administration Pain , Severe (7-10) Ceftriaxone Sodium 2 gm in 100 mls @ 200 mls/hr 03/15/21 22:00 03/17/21 00:02 Rocephin/Ns 2 Gm/100 Ml IV 200 mls/hr Q24H GUME Administration Protocol Potassium Chloride/Dextrose/Sod Cl 20 meq in 1,000 mls @ 125 mls/hr 03/16/21 14:30 03/17/21 00:03 D5w/0.45% Nacl/Kcl 20 Meq IV 125 mls/hr DIRECT GUME Administration Levofloxacin/Dextrose 500 mg in 100 mls @ 100 mls/hr 03/16/21 15:00 Levaquin 500mg/100ml IV 03/17/21 15:59 PREOP NR Protocol Metoclopramide HCl 10 mg 03/15/21 17:17 Metoclopramide 10 Mg/2 Ml Inj IV Q6H PRN Nausea And Vomiting Morphine Sulfate 2 mg 03/15/21 17:17 Morphine 2 Mg/1 Ml Inj IV Q4H PRN Pain, Moderate (4-6) Naloxone HCl 0.1 mg 03/16/21 15:00 Naloxone 0.4 Mg/1 Ml Inj IV Q2MIN PRN Res Rate </= 8 or 02 SAT < 92% Ondansetron HCl 4 mg 03/16/21 15:00 Ondansetron 4 Mg Odt Tab PO Q8H PRN Nausea And Vomiting Oxycodone/Acetaminophen 2 tab 03/16/21 15:00 Oxycodone /Acetaminophen 5-325mg Tab PO Q6H PRN Pain, Moderate (4-6) Sodium Chloride 10 ml 03/15/21 22:00 03/16/21 22:09 Sodium Chloride 0.9% 10 Ml Flush Syringe IV 10 ml BID GUME Administration Sodium Chloride 10 ml 03/15/21 17:17 Sodium Chloride 0.9% 10 Ml Flush Syringe IV PRN PRN LINE FLUSH Zolpidem Tartrate 5 mg 03/16/21 22:00 Zolpidem 5 Mg Tab PO QHS PRN Sleep
[2021-03-17] MEDS: ENOXAPARIN 40 MG/0.4 ML INJ SUB-Q SCH (09:54)
[2021-03-17] MEDS: FAMOTIDINE 20 MG TAB PO SCH ×2 (09:54)
--- NOTE | 2021-03-17 12:55 | Progress Note ---
Assessment and Plan -- Ureteral calculus, Right Current Visit: Yes Status: Chronic Plan to address problem: s/p placement of ureteral stent today -- Hypercalcemia Current Visit: No Status: Acute Plan to address problem: cont IV fluids and calcitonin for now -- UTI (urinary tract infection) Current Visit: No Status: Acute Plan to address problem: IV Rocephin -- HTN (hypertension) Current Visit: No Status: Chronic Qualifiers: Hypertension type: primary hypertension Qualified Code(s): I10 - Essential (primary) hypertension Plan to address problem: Continue antihypertensives and adjust medications as necessary -- DVT prophylaxis Current Visit: No Status: Acute Plan to address problem: On heparin and GI prophylaxis Disposition: urologist recommended O/N observation following the urologic procedure. if clinically stable possible d/c tomorrow Subjective Date of service: 03/16/21 Principal diagnosis: left ureteral stone Interval history: Patient seen and examined. Medical records and medication list reviewed. No acute event overnight noted by the RN. Status post right ureteral stent placement today, patient currently resting on bed Patient denies any chest pain or difficulty breathing. Discussed plan of care at bedside with patient and RN. Objective - Exam Narrative Exam: GENERAL: Elderly female lying on bed appeared to be in no discomfort. HEENT: Normocephalic. Atraumatic. No conjunctival congestion or icterus. Patient has moist mucous membranes. NECK: Supple. Trachea midline. CHEST/LUNGS: Clear to auscultated bilaterally, breathing nonlabored. No wheezes crackles or rhonchi. HEART/CARDIOVASCULAR: Regular in rate and rhythm. S1 and S2 positive. ABDOMEN: Abdomen is soft, nontender. Patient has normal bowel sounds. SKIN: There is no rash. Warm and dry. NEURO: No focal motor deficit. Follows command. MUSCULOSKELETAL: No joint effusion or tenderness. EXTRIMITY: No edema, no cyanosis or clubbing. PSYCH: Cooperative. - Constitutional Vitals: Vital Signs - 12hr 03/17/21 03/17/21 03:22 09:01 Temperature 97.4 F L 98.2 F Pulse Rate 75 72 Respiratory 16 18 Rate Blood Pressure 120/76 110/71 O2 Sat by Pulse 99 93 Oximetry - Labs CBC & Chem 7: 03/16/21 04:07 03/04/21 11:34 Labs: Abnormal lab results 03/16/21 Range/Units 13:52 POC Glucose 130 H (70-105) mg/dL
[2021-03-17 14:23] LABS: BUN/Creatinine Ratio 11; Blood Urea Nitrogen 9 mg/dL (7-17); Hemolysis Index 60
[2021-03-17 19:53] VITALS: BP 99/67
== END 2021-03-17 20:04 | disposition home or self-care (01) ==
LOC: OR 09:34 → 4A 17:17
PROVIDERS: ADMIT Internal Medicine; ATTEND Internal Medicine
DX: N20.1 Calculus of ureter (principal); N20.0 Calculus of kidney; N39.0 Urinary tract infection, site not specified; I10 Essential (primary) hypertension; I25.10 Atherosclerotic heart disease of native coronary artery without angina pectoris; J44.9 Chronic obstructive pulmonary disease, unspecified; I73.9 Peripheral vascular disease, unspecified; Z87.891 Personal history of nicotine dependence
CPT/HCPCS: 36415; 50080; 50389; 50431; 50433; 74485; 80048; 82962; 85025; 85027; 86850; 86900; 86901; 86920; 96361; 96365; 96366; 96372; 96375; 96376; A4217; C1726; C1769; C2617; G0378; G0379; J0330; J0696; J1170; J1650; J1885; J1956; J2250; J2370; J2405; J2704; J2710; J3010; J7030; J7040; Q9967